=== PATIENT | female | born 1945 | race Caucasian/White ===

== ENCOUNTER 2023-07-12 15:44 | Inpatient (IN) | payer MEDICARE, SELFPAY ==
[2023-07-12] VITALS (17 sets, daily range): BP systolic 75–162; BP diastolic 37–106; BMI 27.4
[2023-07-12] MEDS: ATROPINE 0.1 MG/ML SYRINGE 1 MG IV (14:28)
[2023-07-12] MEDS: DOPamine 400 MG 250 IV (14:32)
--- NOTE | 2023-07-12 14:34 | EDRN ---
Atropine administered 1mg IV at 14:28 for low HR, EXT pacemaker not capturing. Pt had dopamine started at 14:32 at 5 micrograms per kilogram per minute (wt. [address]. Eason in room at 14:34. Dr. Cardoso called to room on arrival of pt.
--- NOTE | 2023-07-12 14:40 | EDRN ---
Ext pacemaker originally got capture w/ rate of 60 at MA 120. MA has been turned up to 130. Dr. Cardoso in room at this time speaking w/ spouse.
[2023-07-12] MEDS: ZOFRAN 4 MG IV (14:44)
[2023-07-12 14:46] LABS: % Basophils 0.4 % (0-2); % Eosinophils 0.2 % (0-6); % Immature Granulocytes 0.9 % (0-0.5); % Lymphocytes 12.1 % (20.5-51.1); % Monocytes 6.6 % (1.7-9.3); % Neutrophils 79.8 % (42.2-75.2); Absolute Basophils 0.1 10^3/uL (0-0.2); Absolute Immature Granulocytes 0.1 10^3/uL (0-0.05); Absolute Lymphocytes 1.9 10^3/uL (1.2-3.4); Absolute Monocytes 1.1 10^3/uL (0.1-0.6); Absolute Neutrophils 12.8 10^3/uL (1.4-6.5); Hematocrit 47.5 % (37.0-47.0); Hemoglobin 15.8 g/dL (12.0-16.0); Mean Corp Hgb Conc. 33.3 g/dL (33.0-37.0); Mean Corpuscular Volume 102.2 fL (81.0-99.0); Mean Platelet Volume 10.8 fL (7.4-10.4); Nucleated Red Blood Cells % 0 %; Platelet Count 112 10^3/uL (130-400); Red Blood Cell Count 4.65 10^6/uL (4.20-5.40); Red Cell Dist. Width 15.8 % (11.5-14.5)
--- NOTE | 2023-07-12 14:48 | ED.GENMED ---
History of Present Illness
General
Chief Complaint: Heart Rate Problem
Source: patient, spouse and ambulance crew
Exam Limitations: altered mental status
Time Seen by Provider: 07/12/23 14:25
Nursing documentation reviewed up to this point in time: agreed with
Travel History
Have you had any contact with someone who has COVID-19?: No
Do you have any symptoms of coronavirus? Fever > 100 degrees, chills, cough, shortness of breath, sore throat, loss of taste or smell, muscle aches, or headache?: No
History of Present Illness
History of Present Illness:
Patient presents to ED from home secondary to multiple syncopal episodes noted by paramedics with extreme bradycardia, as low as 20s. Rhythm strip at the scene revealed slow atrial fibrillation, and patient was given atropine with mild improvement
heart rate. Subsequently, patient was externally paced, and route to the hospital. Initial 911 phone call was secondary to sudden onset of dizziness, confusion, and nausea, witnessed by spouse. Upon arrival, patient is somnolent, but easily
arousable to loud voice, and responding to simple commands. Patient denies chest pain or shortness of breath. However, patient does report nausea sensation and dizziness. Denies recent illness.
Past History
Past History
ED Past Medical History: Arrthythmia, CAD, CHF, HTN and Other (Psoriasis)
ED Past Surgical History: Cardiac (Aortic valve replacement, CABG) and Orthopedic (Knee replacement)
Social History
Tobacco: Non-smoker
Alcohol: None
Drug: None
Personal:
Living: with family
Family History
Family History: Negative Early CAD
Review of Systems
Review of Systems
Allergies reviewed?: Yes
Unable to obtain full review of systems at this time due to: due to acuity
All Other Systems: Not applicable
Phy Exam
Physical Exam
Physical Exam:
Physical Exam
General: moderate distress, acutely ill. afebrile. pale appearing. somnolent but arousable to loud voice.
Head: nc/at. eomi
Neck: supple. no meningeal signs.
Heart: irregularly irregular. no murmur. equal radial pulses.
Lungs: no acute respiratory distress. clear bilaterally
Abdomen: normal bowel sounds. not tender.
Neuro: somnolent but arousable to loud voice. answering questions appropriately. No focal neurological deficits
Skin: no rash
Psychiatric: well kept.
Extremities: no edema. no calf tenderness.
Course
Orders/Labs/Results
Orders:
Orders
07/12/23 14:26
Atropine Sulfate [Atropine 0.1 mg/ml Syringe] 1 mg .ROUTE .STK-MED ONE
DOPamine 400 MG/D5W 250 ML [DOPamine 400 MG] 400 mg in 250 ml .ROUTE .STK-MED
07/12/23 14:33
Complete Blood Count/With Diff Urgent
Comprehensive Metabolic Panel Urgent
Magnesium Urgent
Comment: ADD ON
Prothrombin Time Urgent
Troponin I Urgent
07/12/23 14:42
Ondansetron Injectable [Zofran] 4 mg .ROUTE .STK-MED ONE
07/12/23 14:47
Midazolam HCl [Versed] 1 mg IV NOW STA
Ondansetron Injectable [Zofran] 4 mg IV NOW STA
07/12/23 14:48
Add On- LAB Urgent
Tests Added?: magnesium
Midazolam HCl [Versed] 2 mg .ROUTE .STK-MED ONE
07/12/23 14:53
Atropine Sulfate [Atropine 0.1 mg/ml Syringe] 1 mg IV NOW STA
07/12/23 15:00
DOPamine 400 MG/D5W 250 ML [DOPamine 400 MG] 400 mg in 250 ml IV PER PROTOCOL
Initial dose in mcg/kg/min, then titrate:: 5
Titrate to keep:: Heart Rate
Keep Heart Rate (bpm) greater than:: 60
Titrate by mcg/kg/min:: 1-2 mcg/kg/min
Frequency of titrations (minutes):: 15
Maximum dose in ICU in mcg/kg/min:: 20
Maximum dose in IMU in mcg/kg/min:: 10
Begin to taper infusion when:: Remained at goal for 4hrs
Taper by mcg/kg/min:: 1-2 mcg/kg/min
Frequency of taper (minutes) if patient maintains goal:: 30
Taper to off?: Yes
If infusion off & no longer maintaining goal:: Contact Provider
07/12/23 15:08
Admit/Transfer Patient As Directed
Co-Sign Provider:
Level of Care: Inpatient admission
Assign to:: IVU
Physician / Group: Alanis rGossman
Diagnosis: syncope and bradycardia
Reason for Hospitalization: syncope and bradycardia
Expected length of stay greater than two midnights?: Yes
ELOS- Estimated Length of Stay in days: 3
I certify the patient meets the requirements for IP care: Yes
07/12/23 15:10
Code Status As Directed
Resuscitation Status: Full Code
Heparin 1000 Units/500 ml [Heparin] 1,000 units in 500 ml .ROUTE .STK-MED
Heparin Sodium,Porcine/Ns/Pf [Heparin 2000 Units/1000 ml] 2,000 unit in 1,000 ml .ROUTE .STK-MED
Lidocaine HCl/Pf [Xylocaine-Mpf 1% Vial] 100 mg .ROUTE .STK-MED ONE
07/12/23 15:15
Add On- LAB Urgent
Tests Added?: magnesium
07/12/23 15:17
Heparin 1000 Units/500 ml [Heparin] 1,000 units in 500 ml .ROUTE .STK-MED
07/12/23 15:36
Venous Sheath As Directed
Comment: Right IJ
07/12/23 15:38
Temporary Pacemaker-External As Directed
Rate: 60
MA: 10
Demand: No
07/12/23 15:45
0.9% Sodium Chloride 1000 ml [Nss] 1,000 ml IV 30 mls/hr
07/12/23 16:23
0.9% Sodium Chloride 1000 ml [Nss] 1,000 ml IV 80 mls/hr
Acetaminophen [Tylenol] 650 mg PO Q4HPRN PRN
07/12/23 16:23
CARDIOLOGY CONSULT Routine
Consulting Provider: Nic Reyez
Was physician already notified: Yes
Activity As Directed
Activity Level: As Tolerated
Intake/ Output As Directed
Frequency: Per unit guidelines
Nursing to Place Non Medication Order As Directed
Physician Order: dopamine continued from ER medications but not to be continued post PPM placement - F/U
cardiology recs
Above order entered?: Yes
Pneumatic Compression Sleeves As Directed
Type: Knee high
Vital Signs As Directed
Frequency: Per unit guidelines
Weight As Directed
Frequency: Daily
DX Deep Vein Thrombosis Video Routine
07/13/23 Breakfast
NPO
Allow oral meds: Yes
Allow clear liquids: No
Basic Metabolic Panel IN AM
Complete Blood Count/With Diff IN AM
Magnesium IN AM
07/13/23 08:00
Cholecalciferol (Vitamin D3) [VITAMIN D3 (cholecalciferol)] 50 mcg PO DAILY
Cyanocobalamin [Vitamin B-12] 1,000 mcg PO DAILY
Escitalopram Oxalate [Lexapro] 20 mg PO DAILY
Furosemide [Lasix] 40 mg PO BID@0800,1600
Abnormal Lab Results
07/12/23
14:33
WBC 16.0 H 10^3/uL
(4.8-10.8)
Hct 47.5 H %
(37.0-47.0)
MCV 102.2 H fL
(81.0-99.0)
MCH 34.0 H pg
(27.0-31.0)
RDW 15.8 H %
(11.5-14.5)
Plt Count 112 L 10^3/uL
(130-400)
MPV 10.8 H fL
(7.4-10.4)
Abs Immat Gran (auto) 0.1 H 10^3/uL
(0-0.05)
Absolute Neuts (auto) 12.8 H 10^3/uL
(1.4-6.5)
Absolute Monos (auto) 1.1 H 10^3/uL
(0.1-0.6)
Immature Gran % 0.9 H %
(0-0.5)
Neutrophils % 79.8 H %
(42.2-75.2)
Lymphocytes % 12.1 L %
(20.5-51.1)
BUN 35 H mg/dl
(7-17)
Creatinine 1.5 H mg/dL
(0.6-1.0)
Glucose 208 H mg/dl
(70-99)
Magnesium 2.6 H mg/dl
(1.6-2.3)
Total Bilirubin 1.6 H mg/dl
(0.2-1.3)
AST 234 H U/L
(14-36)
ALT 163 H U/L
(0-35)
Alkaline Phosphatase 176 H U/L
(38-126)
07/12/23 14:33
07/12/23 14:33
Vital Signs
Initial and Last Documented VS:
Initial Vital Signs
Pulse Resp BP Pulse Ox
46 28 121/102 100
07/12/23 14:29 07/12/23 14:29 07/12/23 14:29 07/12/23 14:29
Last Documented Vital Signs
Pulse Resp BP Pulse Ox
60 26 162/95 96
07/12/23 14:45 07/12/23 14:45 07/12/23 14:45 07/12/23 14:45
MDM/Problems Addressed
MDM/Problems Addressed:
History and exam concerning for severe bradycardia, triggering multiple single episodes prehospital, as well as in ED. Patient started on dopamine infusion and externally paced.
Patient evaluated in ED by Dr. Eason, Belt Weaver attending. Will proceed to photo lab specialist
Discussed with patient's spouse at bedside, regarding patient's condition.
Critical care statement: A total of 40 minutes of critical care time was provided for this patient. This includes management of unstable vital signs, evaluation of the patient at bedside, reviewing the patient's pertinent medical records, discussion
with consultants, review of old EKGs and review of pertinent medical records. This time with separate from time utilized to perform the aforementioned documented procedures
*Critical Care Note
Total Time (30-74mins, 75-104mins- exclusive of procedures): 40 min
ED Attending Note
-
Portions of this chart may have been created with voice recognition software.� Occasional wrong word or��sound alike� substitutions may have occurred due to the inherent limitations of voice recognition software.
Discharge Plan
Departure
Patient Disposition: EMS INSTRUCTOR
Date of Disposition: 07/12/23
Time of Disposition: 15:11
Presentation/result/management discussed w/ accepting MD/DO: Hospitalist
Discharge Problem:
Syncope, Atrial fibrillation with slow ventricular response
Interventions
Interventions:
*Nursing Disposition Last Done: 07/12/23 15:10
[2023-07-12] MEDS: VERSED 1 MG IV (14:50)
[2023-07-12 14:54] LABS: ALT (SGPT) 163 U/L (0-35); AST (SGOT) 234 U/L (14-36); Albumin 4.4 g/dl (3.5-5.0); Alkaline Phosphatase 176 U/L (38-126); Blood Urea Nitrogen 35 mg/dl (7-17); Calcium 9.6 mg/dl (8.4-10.2); Carbon Dioxide 23 mmol/L (22-30); Chloride 104 mmol/L (98-107); Glucose 208 mg/dl (70-99); Potassium 4.6 mmol/L (3.5-5.1); Sodium 140 mmol/L (135-145); Total Bilirubin 1.6 mg/dl (0.2-1.3); Total Protein 7.1 g/dl (6.3-8.2); eGFR 35.67
--- NOTE | 2023-07-12 15:01 | EDRN ---
Report given to Marino NAVAS at this time in semiconductor lab technician
--- NOTE | 2023-07-12 15:03 | HPS.HSE ---
Addendum entered and electronically signed by Alanis Grossman MD 07/12/23 16:01:
elevated liver enzymes
-patient without abdominal pain, likely related to shock liver from hypotension
-however given leukocytosis and presentation will obtain US to ensure no e/o infection/no ductal dilation
-trend liver enzymes
Original Note:
Family Physician
-
Family Physician: Dylan Hurst
Chief Complaint
-
dizziness, syncope
History of Present Illness
Ms. Aliyah Land is a 77 yo woman with hx afib on Eliquis, CAD s/p CABG, aortic valve replacement, CHF, HTN, psoriasis, recent admission vitamin B12 deficiency resulting in numbness/tingling presents this morning with confusion and dizziness. EMS was
called and patient found to pass out multiple times with HR dipping to 20's. Atropine given en route and external pacing started. Upon arrival to the ER patient started on a dopamine gtt. Plan is for emergency oil laboratory analyst for temporary pacing.
Patient is on amiodarone and metoprolol 50mg PO QD at home.
Patient is currently sedated s/p versed in the ER. She is able to open her eyes to voice then quickly drifts back to sleep.
Medical History
Past Medical History
Past Medical History: Reports Other (atrial fibrillation on Eliquis, CAD status post CABG, aortic valve replacement, CHF, hypertension, psoriasis)
Past Surgical History: Reports None
Social History
Tobacco: Former Smoker
Alcohol: Daily
Drug: None
Family History
Family History: Not pertinent
Allergies / Home Medications
Allergies reflects when Allergies were last updated in [facility].
Home Medications with original date entered in [facility]
Allergy/Medication List:
Allergies
Allergy/AdvReac Type Severity Reaction Status Date / Time
No Known Allergies Allergy Verified 07/12/23 14:24
Home Medications
apixaban 5 mg tablet (Eliquis) 5 mg PO BID Blood Clot Prevention/Tx 02/02/23
atorvastatin 80 mg tablet 80 mg PO HS High Cholesterol 02/02/23
metoprolol succinate 50 mg tablet,extended release 24 hr 50 mg PO DAILY Blood Pressure 02/02/23
valsartan 80 mg tablet 80 mg PO DAILY Blood Pressure 02/02/23
amiodarone 200 mg tablet 200 mg PO DAILY Arrhythmia 04/01/23
empagliflozin 10 mg tablet (Jardiance) 10 mg PO DAILY Diabetes 04/01/23
escitalopram oxalate 20 mg tablet 20 mg PO DAILY Mental Health 04/01/23
furosemide 40 mg tablet (Lasix) 40 mg PO BID Fluid Retention/Swelling 04/01/23
calcium carbonate 1,000 mg-vitamin D3 20 mcg (800 unit) tablet 1 tab PO DAILY Supplement 05/21/23
cholecalciferol (vitamin D3) 50 mcg (2,000 unit) capsule 50 mcg PO DAILY Supplement 06/11/23
cyanocobalamin (vitamin B-12) 1,000 mcg tablet 1,000 mcg PO DAILY #0 tabs 06/13/23
*med rec to be confirmed in oil laboratory analyst
Review of Systems
-
History Source: Patient
A 12 point ROS was completed and negative except as noted: Yes
Physical Exam
Vital Signs
Vital Signs
Pulse Resp BP Pulse Ox
60 26 162/95 96
07/12/23 14:45 07/12/23 14:45 07/12/23 14:45 07/12/23 14:45
Physical Exam
General: Other (temporary pacing; patient sedated but opens eyes to voice )
HEENT: PERRLA
Respiratory: Clear; No Wheezes
Cardiac: S1/S2
GI: Soft and Non Tender
Musculoskeletal: No Edema
Skin: Warm and Dry; No Rash
Neuro: Sedated
Psych: Calm
Laboratory Results
-
07/12/23 14:33
07/12/23 14:33
Laboratory Results
Total Bilirubin 1.6 mg/dl (0.2-1.3) H 07/12/23 14:33
AST 234 U/L (14-36) H 07/12/23 14:33
ALT 163 U/L (0-35) H 07/12/23 14:33
Alkaline Phosphatase 176 U/L (38-126) H 07/12/23 14:33
Data Reviewed
-
Diagnostic Radiology: Report Reviewed by me
Lab Data: Labs Reviewed by me
Impression/Plan
-
Ms. Aliyah Land is a 77 yo woman with hx afib on Eliquis, CAD s/p CABG, aortic valve replacement, CHF, HTN, psoriasis, recent admission vitamin B12 deficiency resulting in numbness/tingling presents this morning with confusion and dizziness. EMS was
called and patient found to pass out multiple times with HR dipping to 20's. Atropine given en route and external pacing started. Upon arrival to the ER patient started on a dopamine gtt. Plan is for emergency oil laboratory analyst for temporary pacing.
Severe Symptomatic Bradycardia with syncope
History of Atrial Fibrillation
-s/p atropine; cutaneous pacing and dopamine by EMS/ER
-patient being taken emergently to oil laboratory analyst for temporary pacemaker
-hold BOTTLING MACHINE OPERATOR metoprolol, amiodarone, Eliquis
-NPO
-F/U further cardiology recs
-admit to IVU post cath
Acute Kidney Injury
-in setting of poor perfusion from severe bradycardia
-PPM as above
-hold valsartan
-IVF
CAD s/p CABG
Hx Aortic valve replacement
Heart failure preserved EF
-hold BOTTLING MACHINE OPERATOR Jardiance
-resume BOTTLING MACHINE OPERATOR lasix tomorrow
Hyperlipidemia
-BOTTLING MACHINE OPERATOR Atorvastatin
Anxiety/Depression
-continue BOTTLING MACHINE OPERATOR Lexapro
Essential Hypertension
-hold BOTTLING MACHINE OPERATOR Valsartan
DVT PPx SCD
FULL CODE
[2023-07-12 15:06] LABS: Troponin I 0.033 ng/ml
[2023-07-12 15:09] LABS: Magnesium 2.6 mg/dl (1.6-2.3)
[2023-07-12 15:11] LABS: INR 1.15; PT 14.5 Sec (11.4-14.6)
--- NOTE | 2023-07-12 15:23 | CON.CAR ---
Addendum entered and electronically signed by Nic Eason MD 07/12/23 16:34:
Attending addendum: Called to see patient emergently in the emergency department for recurring syncopal episodes in ED and en-route to the hospital. She had a known prior RBBB and is chronically maintained on amiodarone 200mg daily and metoprolol.
HR in the ED falling to 20's with loss of consciousness. She was started on transcutaneous pacing. No family available for consent. EMS reported 911 was called for evaluation of dizziness, nausea, and vomiting. The patient has been scheduled
for pulmonary vein isolation early in on 06/07/2023. She was started on amiodarone and the PVI was delayed. She was admitted to [facility] on 06/11/2023 with abrupt onset of left arm and leg numbness that spontaneously resolved. She was seen
in consultation by neurology. Workup was rather unrevealing. She was discharged and reported dizziness and near syncopal symptoms while participating in physical therapy. This morning she was more confused and dizzy. Her was concerned
she may be having a stroke and 911 was called
GEN: Patient is intermittently alert and interactive. Occasional transcutaneous pacing. When alert she appears appropriate.
HEENT: NC/AT, sclera are anicteric
LUNGS: Clear in the anterolateral lung puga bilaterally
CV: Irregularly irregular rhythm with occasional transcutaneous demand pacing. Normal S1/S2.
ABD : Soft, NT, ND
EXT: No CCE
LABS: BUN/Cr: 35/1.5, AST/ALT: 234/163, T. bili: 1.6, WBC: 16.0 H/H: 15.8/47.5, Plts: 112, INR: 1.15, Trop: 0.033 ng/dl
IMPRESSION:
-Symptomatic bradycardia with recurring syncopal episodes: on amiodarone and metoprolol
Successful transcutaneous pacemaker placed as emergency. Family members were not readily available
-Atrial fibrillation: on amiodarone and metoprolol
-Elevated LFT's: Component of hypotension and shock liver is possible.
-Hx of CADz s/p CABGx3 [id number], and SVG-OM at [facility] 2013
-Midrange LVEF: EF: 45-50%
-Hx of bioprosthetic AVR
-Renal insufficiency
RECOMMENDATIONS:
-Transcutaneous pacemaker wire was placed via right IJ using ultrasound guidance
-EP will evaluate
-May need abdominal ultrasound
-Hold atorvastatin
-Hold Apixaban for now until plan is made re: timing of pacemaker
-Hold amiodarone and metoprolol
-Trend trop
Original Note:
Consultation
Consultation Request
Date/Time Consultation Requested: 07/12/23
Reason for Consultation: Heart block
Medical History
-
Chief Complaint: Syncope
History of Present Illness:
77 yo WF with hx afib on Eliquis, CAD s/p CABG x3, AVR 2013, RBBB, CHF, HTN, psoriasis, carotid stenosis, recent admission for vitamin B12 deficiency resulting in numbness/tingling who presents this morning with confusion and dizziness.� EMS was
called and patient found to pass out multiple times with HR dipping to 20's.� Atropine given en route and external pacing started.� Upon arrival to the ER patient started on a dopamine gtt.� Plan is for emergency computer lab aide for temporary pacing.�
Past Medical History
Past Medical History: Arrhythmias (Paroxysmal Afib s/p DCCV 02/05/23 and KG DCCV 04/08/23, RBBB, LAFB), CAD (CABGx3, NGOH-IFJ-F5-LAD, SVG-OM at [facility] 2013), CHF (EF 45-50%), HTN, Hypercholesterolemia, Valvular Disease (AVR
bioprosthetic 2013) and Other (Psoriasis, osteoarthritis with chronic back pain)
Past Surgical History: Orthopedic (L knee arthroscopy)
Social History
Tobacco: Former Smoker (quit 23 yrs ago)
Alcohol: Occasional
Family History
Family History: CAD and Cancer
Allergies / Home Medications
Allergy/AdvReac Type Severity Reaction Status Date / Time
No Known Allergies Allergy Verified 07/12/23 14:24
Medication Instructions Recorded Confirmed Type
apixaban 5 mg tablet (Eliquis) 5 mg PO BID Blood Clot 02/02/23 06/11/23 History
Prevention/Tx
atorvastatin 80 mg tablet 80 mg PO HS High Cholesterol 02/02/23 06/11/23 History
metoprolol succinate 50 mg 50 mg PO DAILY Blood Pressure 02/02/23 06/11/23 History
tablet,extended release 24 hr
valsartan 80 mg tablet 80 mg PO DAILY Blood Pressure 02/02/23 06/11/23 History
amiodarone 200 mg tablet 200 mg PO DAILY Arrhythmia 04/01/23 06/11/23 History
empagliflozin 10 mg tablet 10 mg PO DAILY Diabetes 04/01/23 06/11/23 History
(Jardiance)
escitalopram oxalate 20 mg tablet 20 mg PO DAILY Mental Health 04/01/23 06/11/23 History
furosemide 40 mg tablet (Lasix) 40 mg PO BID Fluid 04/01/23 06/11/23 History
Retention/Swelling
calcium carbonate 1,000 mg-vitamin 1 tab PO DAILY Supplement 05/21/23 06/11/23 History
D3 20 mcg (800 unit) tablet
cholecalciferol (vitamin D3) 50 50 mcg PO DAILY Supplement 06/11/23 06/11/23 History
mcg (2,000 unit) capsule
cyanocobalamin (vitamin B-12) 1,000 mcg PO DAILY #0 tabs 06/13/23 Rx
1,000 mcg tablet
Review of Systems
-
Constitutional: Other (brought to computer lab aide for emergent IJ temp wire being transcutaneous paced)
Physical Exam
Vital Signs
Pulse Resp BP Pulse Ox
60 26 162/95 96
07/12/23 14:45 07/12/23 14:45 07/12/23 14:45 07/12/23 14:45
Lab Results
07/12/23 14:33
07/12/23 14:33
Troponin I 0.033 ng/ml 07/12/23 14:33
Physical Exam
General: Pain (discomfort from trancutaneous pacing, deferred exam d/t being prepped and draped for emergent procedure)
Impression / Plan
-
PCP: Dylan Hurst MD
Primary Cardiology: Ni Donis MD
77 yo WF with hx afib on Eliquis, CAD s/p CABG x3, AVR 2014, RBBB, CHF, HTN, psoriasis, recent admission vitamin B12 deficiency resulting in numbness/tingling presents this morning with confusion and dizziness.� EMS was called and patient found to
pass out multiple times with HR dipping to 20's.� Atropine given en route and external pacing started.� Upon arrival to the ER patient started on a dopamine gtt.� Plan is for emergency computer lab aide for temporary pacing.�
04/08/23 KG - LVEF 45-50%, mild enlarged RV, biatrial enlargement, moderate MR, well seated AVR with mild AR, Moderate TR
B/L CUS:
RIGHT: Calcified plaque is identified in the proximal internal carotid artery. Carotid velocity measurements are consistent with less than 50% stenosis. Vertebral artery flow is antegrade.
LEFT: Calcified plaque is identified in the carotid bulb and proximal internal carotid artery. Carotid velocity measurements are consistent with 50-69% stenosis. Vertebral artery flow is antegrade.
Severe Symptomatic Bradycardia with syncope
History of Atrial Fibrillation
-s/p atropine; cutaneous pacing and dopamine by EMS/ER
-emergently to computer lab aide for temporary pacemaker
-continue to hold metoprolol, amiodarone, Eliquis
-NPO
-Admit CVICU post temp wire, plan per EP cards timing of PPM
Acute Kidney Injury
-in setting of poor perfusion from severe bradycardia
-PPM as above
-hold valsartan
-IVF
CAD s/p CABG
Hx Aortic valve replacement
Heart failure preserved EF
-hold PLUGMAN Jardiance
-resume PLUGMAN lasix tomorrow
Hyperlipidemia
-PLUGMAN Atorvastatin
Anxiety/Depression
-continue PLUGMAN Lexapro
Essential Hypertension
-hold PLUGMAN Valsartan
Data Reviewed
-
EKG: Discussed with Physician
Labs: Labs Reviewed by me
--- NOTE | 2023-07-12 16:35 | ITS.CL.CATH ---
Cutter V Groove - Catheterization
Cardiac Catheterization
Procedure Report:
TEMPORARY TRANSVENOUS PACING WIRE
Date of Procedure: July 12, 2023
Referring: [facility] Emergency Department
PROCEDURES:
1. Temporary transvenous pacemaker wire was placed via right internal jugular access.
INDICATION: Symptomatic AV block
ACCESS: Right internal jugular artery using ultrasound guidance
PROCEDURAL DETAILS: Consent was obtained on an emergency basis as no family was available. Patient arrived to the catheterization laboratory and ultrasound guidance was utilized to obtain access in the right internal jugular vein and an 8 Lebanese
sheath was placed. A 6 Lebanese transcutaneous pacemaker wire was advanced through the IJ sheath to the right ventricle where excellent pacing thresholds were obtained.
RADIATION SUMMARY: Fluoro Time (min): 0.4, Dose (mGy): 3.7, DAP (Gy.cm2) : 0.5
CONCLUSIONS
1. Successful placement of temporary transvenous pacemaker via right internal jugular access
Copy to: Dr. Jessica Donis
[2023-07-12] MEDS: NSS 1000 IV (16:48)
--- NOTE | 2023-07-12 16:49 | PTCARENOTE ---
arrived in ICU via track repair laborer stretcher, assisted into bed. temp pacer VR 60, V lead only, MA 10, full demand. RIJ cordis site large dressing overtop gauze. extremely restless, picking at dressing, attempting to get OOB. redirectable and oriented
but forgetful and restless. reports was agitated today earlier.
--- NOTE | 2023-07-12 18:30 | PTCARENOTE ---
continued as restless, 1:1 maintained in room for safety and pacer security. moves side to side, attempted to climb oob several times. smiles, interacts appropriately at times. Dr. Recinos updated about need for possible restraints/general
observation safety. Dr. Avina bedside, spoke with , discussing pacer procedure and consent, questions answered. report to garage laborer staff. taken to garage laborer via stretcher with pacer continuing, on monitor, with garage laborer staff and
anesthesia. pacer settings were VR 60, VVI setting, MA 10. was 100% paced at time of transfer.
--- NOTE | 2023-07-12 18:52 | W.PN.UPDATE ---
Update Note
Progress Note Update
Patient is a 77 yo WF with hx afib on Eliquis, CAD s/p CABG x3, AVR 2014, RBBB, CHF, HTN, psoriasis, carotid stenosis, recent admission for vitamin B12 deficiency resulting in numbness/tingling who presents this morning with confusion and
dizziness.� EMS was called and patient found to pass out multiple times with HR dipping to 20's.� Atropine given en route and external pacing started.� Upon arrival to the ER patient started on a dopamine gtt.� Patient underwent successful TVP
placement via RIJ with clinical improvement/stability. Additionally, patient noted to have abnormal LFTs/renal function likely related to the hypotension. She and her noted diarrhea 2-3 days ago but now improved. No reported fevers.
Currently, patient is AOx3 however is very restless and expresses some confusion. With this in mind, there is serious concern for TVP lead dislodgement. Therefore, I discussed at length with patient and her regarding implantation of a
permanent pacemaker. Due to patient's symptomatic bradycardia with syncope and unstable rhythm requiring inotropic support and TVP, I believe patient would benefit from urgent implantation of a dual chamber pacemaker. We discussed pacemaker
indications and device implant in detail. For implant there is an approximate 1:1000 risk of W[place]/stroke/ and a 1% risk of pneumothorax/tamponade/infection/bleeding. We also discussed post procedure implant restrictions including positions to
avoid with implant arm for first six weeks after implant as well as driving restrictions. I took time to answer all questions. Patient and her verbalized understanding of the procedure, benefits, and risks and agreed to proceed.
--- NOTE | 2023-07-12 21:13 | ITS.CL.PACE ---
Front Services Agent - Pacemaker Implant
Pacemaker Implant
Procedure Report:
Primary Children'S Entertainer: Jessica Donis MD
Procedure Date: 07/12/2023
Name of procedure:
1. Placement of a dual-chamber pacemaker
2. Subclavian venography
3. TVP removal
History:
1. 77-year-old female past medical history significant for atrial fibrillation/atrial flutter on Eliquis, CAD status post CABG x 3, AVR 2013, right bundle branch block, heart failure, hypertension, psoriasis, right carotid stenosis, recent
admission for B12 deficiency with new onset complete heart block, alternating bundle branch block, symptomatic bradycardia, and syncope.
2. Please refer to H&P for complete history.
Indication:
Symptomatic bradycardia, alternating bundle branch block, syncope with bradycardia and complete heart block
Methods:
After informed consent was obtained, the patient was brought to the EP laboratory in a postabsorptive, nonsedated state. Peripheral IV access was established. Prophylactic antibiotics were administered prior to incision. Continuous ECG, blood
pressure, and pulse oximetry were initiated. Cardioversion patch electrodes were placed on the patient's chest and back. A grounding patch was applied to the skin. Sedation was administered by anesthesia.
In order to define the extrathoracic portion of the subclavian vein and exclude significant venous obstruction or anomalous anatomy, subclavian venography was performed prior to the procedure. Using the patient's left peripheral IV, contrast was
injected and images were recorded. The left subclavian vein and SVC were found to be widely patent.
The left chest was prepared and draped in a sterile fashion. A time-out was performed. Local anesthesia was injected in the subcutaneous tissue in the infraclavicular area. An incision was made medial to the deltopectoral groove. The subcutaneous
tissue was dissected the level of the prepectoral fascia. A subcutaneous pocket was created. Under fluoroscopic guidance and with the assistance of the images from the venogram, 2 separate venipunctures were made using micropuncture and modified
Seldinger technique. These were performed in the extrathoracic portion of the subclavian vein. Guidewires were passed and two peel-away sheaths were placed, and used to advance leads into the circulation.
Using fluoroscopic guidance, the leads were positioned. The RV lead was advanced to the RV/outflow tract. Ventricular ectopy was recorded. Images were taken in LAY and YAKUT views to ensure appropriate lead placement. The lead tip was subsequently
positioned on the apical septum. Adequate sensing and pacing parameters were found, and no diaphragmatic stimulation was seen with high-output pacing.
Next, the right atrial lead was positioned in the right atrial appendage. Adequate sensing and pacing parameters were found, and no diaphragmatic stimulation was seen with high-output pacing. Both sheaths were split, and the leads were secured to
the fascia with Ethibond ties.
The pocket was flushed with antibiotic solution and hemostasis was assured. Surgiflo was applied. The generator was connected to the leads and placed inside the pocket with antibiotic envelope. The wound was closed with 3 running layers of
absorbable suture, and steri-strips were applied. Dressing applied over steri-strips in standard fashion. Under fluoroscopy, the transvenous pacemaker was removed from the right IJ.
Following the procedure, the patient was taken to the recovery area in stable condition. A chest x-ray to be obtained in the recovery area/patient room.
Lead parameters and device programming:
- RA Lead (Medtronic, [id number], #[id number]): Sensing 1.0 mV, In AFL (no pacing threshold), Imp 460 Ohm
- RV Lead (Medtronic, [id number], #[id number]): Sensing 7.25 mV, Pacing threshold 0.75 V at 0.4 ms, Imp 720 Ohm
- Device: Medtronic, [id number] pacemaker (#[id number]), programmed DDDR 70-130 ppm; mode switch on
Conclusions:
1. Successful placement of a dual-chamber pacemaker
2. Subclavian venography
Recommendations:
1. Return to patient room
2. Portable chest x-ray in recovery area.
3. IV antibiotics while the patient is admitted.
4. OK to resume home medications as indicated
5. If site c/d/i and patient stable after pressure dressing removal 07/13/2023, can resume OAC evening 07/13/2023
5. Pressure dressing to be removed in AM, aquacell to remain until wound check
6. Follow-up will be arranged in the office in 7-10 days post-discharge
Lex Avina DO
Clinical Cardiac Boiler Operator Helper
cc: Jessica Donis MD
[2023-07-12 22:52] LABS: Troponin I 0.113 ng/ml
--- NOTE | 2023-07-12 23:54 | PTCARENOTE ---
Pt admitted to IVU at approximately 2245 post pacemaker placement. at bedside. HR V-paced 70s. Pt oriented to person and place, not time. Pt having confused conversation (baseline since arrival to ED). Bed alarm placed, medsitter in room. Pt
appears fatigued post procedure. Educated pt/pt's on activity restrictions, reason for immobilizer, and plan of care. Pt/pt's have no further questions at this time. Pt denies any pain, SOB, or lightheadedness/dizziness at this time.
Informed to notify RN if any changes, call mistry within reach.
Pt belongings with pt.
[2023-07-13] VITALS (8 sets, daily range): BP systolic 122–132; BP diastolic 39–50; PULSE 71–74; O2SAT 97; BMI 27.4
[2023-07-13] MEDS: ANCEF 5 IV ×2 (02:18→10:03)
[2023-07-13 02:43] LABS: % Basophils 0.3 % (0-2); % Immature Granulocytes 0.7 % (0-0.5); % Lymphocytes 7.2 % (20.5-51.1); % Monocytes 3.1 % (1.7-9.3); % Neutrophils 88.7 % (42.2-75.2); Absolute Immature Granulocytes 0.1 10^3/uL (0-0.05); Absolute Lymphocytes 0.9 10^3/uL (1.2-3.4); Absolute Monocytes 0.4 10^3/uL (0.1-0.6); Absolute Neutrophils 10.6 10^3/uL (1.4-6.5); Hematocrit 39.4 % (37.0-47.0); Mean Corp Hgb Conc. 35.5 g/dL (33.0-37.0); Mean Corpuscular Volume 95.6 fL (81.0-99.0); Mean Platelet Volume 10.4 fL (7.4-10.4); Nucleated Red Blood Cells % 0 %; Platelet Count 96 10^3/uL (130-400); Red Blood Cell Count 4.12 10^6/uL (4.20-5.40); Red Cell Dist. Width 15.6 % (11.5-14.5); White Blood Cell Count 11.9 10^3/uL (4.8-10.8)
[2023-07-13 03:09] LABS: Troponin I 0.089 ng/ml
[2023-07-13 03:14] LABS: ALT (SGPT) 109 U/L (0-35); AST (SGOT) 121 U/L (14-36); Albumin 3.6 g/dl (3.5-5.0); Alkaline Phosphatase 134 U/L (38-126); Blood Urea Nitrogen 38 mg/dl (7-17); Calcium 9.2 mg/dl (8.4-10.2); Carbon Dioxide 22 mmol/L (22-30); Chloride 105 mmol/L (98-107); Direct Bilirubin 0.4 mg/dl (0.0-0.4); Estimated Creatinine Clearance 48 ml/min; Glucose 115 mg/dl (70-99); Magnesium 2.2 mg/dl (1.6-2.3); Potassium 4.5 mmol/L (3.5-5.1); Sodium 139 mmol/L (135-145); eGFR 51.75
--- NOTE | 2023-07-13 06:21 | W.PN.HOSP.TC ---
Today's Communication/Plan
-
dc planning
Assessment / Plan
Assessment / Plan
Physical Exam
General: Other (temporary pacing; patient sedated but opens eyes to voice )
HEENT: no deformities
Respiratory: No Wheezes
Cardiac: S1/S2. left upper chest pacemaker site, no bleeding noted
GI: Soft and Non Tender
Musculoskeletal: No Edema
Skin: Warm and Dry; No Rash
Neuro: awake, alert, oriented to self and surroundings, follows commands.
Psych: Calm, easy to re-direct
Ms. Aliyah Land is a 77 yo woman with hx afib on Eliquis, CAD s/p CABG, aortic valve replacement, CHF, HTN, psoriasis, recent admission vitamin B12 deficiency resulting in numbness/tingling presents this morning with confusion and dizziness.� EMS was
called and patient found to pass out multiple times with HR dipping to 20's.� Atropine given en route and external pacing started.� Upon arrival to the ER patient started on a dopamine gtt.� Plan is for emergency company laborer for temporary pacing.�
# Symptomatic AV block. Severe Symptomatic Bradycardia with syncope
History of Paroxysmal�Atrial Fibrillation
-s/p atropine; cutaneous pacing and dopamine, temporary pacemaker
- s/p placement of a dual-chamber pacemaker on 07/[address] Avina
- Resume metoprolol, amiodarone, Eliquis
- started oral diet
- Follow-up in cardiology office in 7-10 days post-discharge
# Confusion
suspect toxic metabolic encephalopathy due to bradycardia, but suspect some underlying cognitive impairment.
Hx of ETOH intake daily per patient ( GIN)
Monitor for DT
Start her on Thiamine
Added PRN Lorazepam
Acute Kidney Injury
-in setting of poor perfusion from severe bradycardia
Creatinine is coming down to 1.1 from 1.5
No renal colic, no hematuria
-held valsartan
-IVF
# Transaminitis
AST/ALT are coming down
No abd pain
No nausea
No jaundice
# leukocytosis
reactive
WBC is coming down
Afebrile
# CAD s/p CABG
Hx Aortic valve replacement
Heart failure preserved EF
-hold NEWSPAPER SUBSCRIPTION SOLICITOR Jardiance
-resume NEWSPAPER SUBSCRIPTION SOLICITOR lasix tomorrow
Hyperlipidemia
-NEWSPAPER SUBSCRIPTION SOLICITOR Atorvastatin
Anxiety/Depression
-continue NEWSPAPER SUBSCRIPTION SOLICITOR Lexapro
Essential Hypertension
-hold NEWSPAPER SUBSCRIPTION SOLICITOR Valsartan
DVT PPx SCD
FULL CODE
Total time spent to see the patient, examine the patient on the floor, review data and lab results, discuss treatment plan with patient, and nursing staff around 55 minutes
Anticipated Discharge: Within 24 hours
Subjective/Interval History
-
Date of Service: July 13, 2023
No chest pain
Nos ob
No abd pain
Night team: restless, confused at times
Objective Data
-
Labs:
Laboratory Results
07/13/23
02:36
WBC 11.9 H
Hgb 14.0
Hct 39.4
Plt Count 96 L
Sodium 139
Potassium 4.5
Chloride 105
Carbon Dioxide 22
BUN 38 H
Creatinine 1.1 H
Glucose 115 H
Calcium 9.2
Total Bilirubin 1.0
AST 121 H
ALT 109 H
Alkaline Phosphatase 134 H
Vital Signs:
Vital Signs
Temp Pulse Resp BP Pulse Ox
98.5 F 70 18 123/44 95
07/13/23 02:30 07/13/23 02:45 07/13/23 02:30 07/13/23 02:30 07/13/23 02:30
I&O
07/11/23 07/12/23 07/13/23
06:59 06:59 06:59
Intake Total 685 / 685
Balance 685 / 685
--- NOTE | 2023-07-13 07:57 | PTCARENOTE ---
care link performed and transmitted as ordered.
[2023-07-13] MEDS: VITAMIN D3 (cholecalciferol) 50 MCG PO (08:15)
[2023-07-13] MEDS: VITAMIN B1 100 MG PO ×2 (08:15→19:45)
[2023-07-13] MEDS: VITAMIN B-12 1000 MCG PO (08:15)
[2023-07-13] MEDS: LASIX 40 MG PO ×2 (08:15→16:07)
--- NOTE | 2023-07-13 08:15 | W.PN.CARDCBS ---
Today's Communication / Plan
-
Dramatically improved with permanent pacemaker
MSOF resolving, presumably related to correction of incipient cardiogenic shock from advanced heart block
Restart Eliquis tonight
Resume medications as hemodynamics and lab work permit
Hopefully ready for discharge in 24 to 48 hours
Impression / Plan
-
PCP: Dylan Hurst MD
Primary Cardiology: Ni Donis MD
Impression:
Atrial flutter with complete heart block and slow ventricular escape rhythm
Initial temporary pacing wire, Medtronic dual-chamber pacemaker 07/12/2023
PAF on amiodarone
CABG x 3 2013
AVR 2013
Right bundle branch block
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
Acute hepatic injury
Acute kidney injury
Change in mental status, improved
Psoriasis
Hypertension
Hyperlipidemia
Anxiety/depression
B12 deficiency
04/08/23 KG - LVEF 45-50%, mild enlarged RV, biatrial enlargement, moderate MR, well seated AVR with mild AR, Moderate TR
Plan:
She looks much better now with underlying atrial flutter and a ventricularly paced rhythm
Acute hepatic injury, encephalopathy, acute kidney injury ALT improving. In retrospect, incipient cardiogenic shock likely accounts for all of the findings, now corrected with permanent pacemaker.
Will restart Eliquis today, consider resumption of Jardiance, furosemide, amiodarone, atorvastatin, metoprolol and valsartan based on clinical course.
[facility] performed, good pacemaker function.
Hopefully ready for discharge over the next 24 to 48 hours.
PVI can be rescheduled per EP
Clinical summary: 77 yo WF with hx afib on Eliquis, CAD s/p CABG x3, AVR 2013, RBBB, CHF, HTN, psoriasis. She had been scheduled for PVI in early June by Dr. Avina but this was canceled when she was admitted on June 11 with left-sided
numbness ultimately attributed to B12 deficiency. On 07/12/2023 she developed abrupt change in mental status with multiple episodes of syncope, EMS was called with HR dipping to 20's.� Atropine given en route and external pacing started.� ECG showed
flutter with complete heart block and ventricular escape rhythm in the 20s, upon arrival to the ER patient started on a dopamine gtt.�
Progress Note - Body Shop Mechanic
Subjective
Date of Service: July 13, 2023:
Allergies: None
Outpatient medications amiodarone 200 mg a day, atorvastatin 80 mg a day, Eliquis 5 mg twice daily, Lexapro 20 mg a day, furosemide 40 mg twice daily, Jardiance 10 mg a day, metoprolol ER 50 mg twice daily, valsartan 80 mg a day
Current medications: Vitamin B12, Lexapro 20 a day, furosemide 40 mg twice daily, Ancef, thiamine
PMH/PSH/SH/FH: Reviewed
Review of systems: Mild residual, effusion, some shoulder discomfort, otherwise negative
EKG today atrial flutter, ventricular pacing
Chest x-ray July 12: Status post pacemaker no pneumo, possible mild vascular congestion
White count 11.9, had been 16, hemoglobin 14, platelets 96, BUN and creatinine 38 and 1.1, creatinine had been 1.5, troponin is 0.089, had been 0.113 and 0.033, ALT 109, a AST 121, AST had been 234 ALT had been 163
Objective
Labs:
07/13/23 02:36
07/13/23 02:36
Labs
Hgb 14.0 g/dL (12.0-16.0) 07/13/23 02:36
Hct 39.4 % (37.0-47.0) 07/13/23 02:36
Plt Count 96 10^3/uL (130-400) L 07/13/23 02:36
PT 14.5 Sec (11.4-14.6) 07/12/23 14:33
INR 1.15 07/12/23 14:33
Sodium 139 mmol/L (135-145) 07/13/23 02:36
Potassium 4.5 mmol/L (3.5-5.1) 07/13/23 02:36
BUN 38 mg/dl (7-17) H 07/13/23 02:36
Creatinine 1.1 mg/dL (0.6-1.0) H 07/13/23 02:36
Glucose 115 mg/dl (70-99) H 07/13/23 02:36
Troponins
07/12/23 07/12/23 07/13/23
14:33 22:21 02:36
Troponin I 0.033 0.113 H* D 0.089 H*
07/13/23
08:30
Troponin I Cancelled
Vital Signs and I&O:
Vital Signs
Temp Pulse Resp BP Pulse Ox
36.9 C 70 18 123/44 95
07/13/23 02:30 07/13/23 02:45 07/13/23 02:30 07/13/23 02:30 07/13/23 02:30
Vital Signs
Temp Pulse Resp BP Pulse Ox
36.9 C 70 18 123/44 95
07/13/23 02:30 07/13/23 02:45 07/13/23 02:30 07/13/23 02:30 07/13/23 02:30
Intake & Output
07/11/23 07/12/23 07/13/23 07/14/23
07:59 07:59 07:59 07:59
Intake Total 685 / 685
Balance 685 / 685
Physical Exam
Physical Exam
123/44, pulse 70, respirate 18, afebrile, offers no complaints, says her mentation is markedly improved, nurses report mild residual improvement perhaps, head neck exam unremarkable, lungs are clear, regular rate and rhythm, no murmurs JVD okay,
abdomen benign, pacemaker site looks good, extremities without clubbing cyanosis or edema neuro nonfocal
[2023-07-13] MEDS: TYLENOL 650 MG PO ×2 (08:16→19:46)
[2023-07-13] MEDS: ATIVAN 0.25 MG PO (08:16)
[2023-07-13] MEDS: LEXAPRO 20 MG PO (08:16)
[2023-07-13] MEDS: NSS IV (08:18)
--- NOTE | 2023-07-13 08:21 | PTCARENOTE ---
patient c/o LCW pain at site, Tylenol po given as ordered.
--- NOTE | 2023-07-13 08:56 | PTCARENOTE ---
To U/S via stretcher accompanied by vol. staff.
[2023-07-13] MEDS: FLUSH (NSS) 1 FLUSH IV (10:06)
--- NOTE | 2023-07-13 14:42 | PTCARENOTE ---
patient has been on med sitter when I received her this am, patient is able to ring call mistry appropriately, needs assist x 1 to ambulate to BR. bed and chair alarm will remain on. will D/C med sitter.
--- NOTE | 2023-07-13 15:36 | W.DCSUMMARY ---
Discharge Summary
Discharge Data
Date of Admission: 07/12/23
Date of Discharge: 07/14/23
-
Pending Results: No
Hospital Course
77 years old female presented with symptomatic bradycardia. She was found to have confusion and dizziness. She was diagnosed with encephalopathy, acute kidney injury and elevated liver enzymes. Ambulance personnel reported multiple episodes of
passing out and severe bradycardia down to low heart rate. Atropine was given with external pacing. In the emergency room, she was started on dopamine drip. Patient was taking to cardiac catheterization lab for placement of temporary transvenous
pacemaker via right internal jugular access. Upon further evaluation, temporary venous pacing lead was suspected to be dislodged. Upon further discussion, cardiology placed permanent pacemaker. Patient started to feel better. She had underlying
atrial flutter with ventricularly paced rhythm. She was started back on Eliquis with other home medications. [facility] performed and showed good pacemaker function. Liver function test started to show improvement. Patient did not have
abdominal pain. She did not have chest pain. Patient reported daily alcohol intake. She was given oral thiamine. Creatinine came down and patient did not have hematuria, dysuria or flank pain. Patient remained hemodynamically stable. She was
evaluated by physical therapy and recommended home health. Patient was discharged in a stable condition.
Physical Exam
General: Other (temporary pacing; patient sedated but opens eyes to voice )
HEENT: no deformities
Respiratory:� No Wheezes
Cardiac: S1/S2. left upper chest pacemaker site, no bleeding noted
GI: Soft and Non Tender
Musculoskeletal: No Edema
Skin: Warm and Dry; No Rash
Neuro: awake, alert, oriented to self and surroundings, follows commands.
Psych: Calm, easy to re-direct
Total discharge time spent to see the patient, examine the patient on the floor, review data and lab results, discuss discharge plan with patient,�and nursing staff around 65 minutes
Discharge Plan
-
Patient Disposition: Home with Home Care
Discharge Diagnosis/Procedures: Symptomatic atrioventricular block/symptomatic bradycardia with syncopal episodes status post placement of permanent pacemaker on 07/12/[address] Avina.
Acute kidney injury, resolved.
Elevated liver enzymes, coming down. Avoid daily alcohol intake.
Diet: As tolerated, Low Fat and Low Sodium
Referrals:
Dylan Hurst MD [Family Provider] - in one to two weeks
Lex Avina, [Active] - in one week
Prescriptions:
Continued
atorvastatin 80 mg Tablet
80 mg PO HS
Rx Instructions:
stated that they get thru express script
metoprolol succinate 50 mg Tablet Extended Release 24 Hr
50 mg PO BID
valsartan 80 mg Tablet
80 mg PO DAILY
Eliquis 5 mg Tablet
5 mg PO BID
escitalopram oxalate 20 mg Tablet
20 mg PO DAILY
Rx Instructions:
stated that they get thru [facility] scripts
furosemide [Lasix] 40 mg tablet
20 mg PO DAILY
Patient Comments:
decrease dose on 07.04.23
amiodarone 200 mg Tablet
200 mg PO DAILY
Jardiance 10 mg Tablet
10 mg PO DAILY
Discharge Orders:
Discharge Patient (As Directed); Ordered 07/14/23
Ordered By: Adebayo Link
[2023-07-13] MEDS: ELIQUIS 5 MG PO (19:45)
--- NOTE | 2023-07-14 00:54 | PTCARENOTE ---
Pt. remains V-paced on the monitor, VSS. Left CW Aquacel CDI, strong radial pulse. Sat OOB in chair beginning of shift, ringing for help appropriately to use BR; gait unsteady. Pt. oriented but forgetful. Bed alarm on. Currently sleeping.
[2023-07-14 03:23] VITALS: BP 138/57
[2023-07-14 03:33] VITALS: BMI 27.2
[2023-07-14 07:59] VITALS: BP 160/59
[2023-07-14] MEDS: VITAMIN B-12 1000 MCG PO (08:11)
[2023-07-14] MEDS: PACERONE 200 MG PO (08:11)
[2023-07-14] MEDS: ELIQUIS 5 MG PO (08:11)
[2023-07-14] MEDS: VITAMIN D3 (cholecalciferol) 50 MCG PO (08:11)
[2023-07-14] MEDS: LASIX 40 MG PO (08:11)
[2023-07-14] MEDS: VITAMIN B1 100 MG PO (08:12)
[2023-07-14] MEDS: LEXAPRO 20 MG PO (08:12)
[2023-07-14] MEDS: TYLENOL 650 MG PO (08:13)
--- NOTE | 2023-07-14 08:15 | PTCARENOTE ---
patient c/o LCW pacer site discomfort, Tylenol po given as ordered.
--- NOTE | 2023-07-14 10:30 | W.PN.CARDCBS ---
Today's Communication / Plan
-
Check CMP
Okay for discharge from cardiac standpoint
We will arrange for outpatient follow-up
Impression / Plan
-
PCP: Dylan Hurst MD
Primary Cardiology: Ni Donis MD
Impression:
Atrial flutter with complete heart block and slow ventricular escape rhythm
Initial temporary pacing wire, Medtronic dual-chamber pacemaker 07/12/2023
PAF on amiodarone
CABG x 3 2013
AVR 2013
Right bundle branch block
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
Acute hepatic injury
Acute kidney injury
Change in mental status, improved
Psoriasis
Hypertension
Hyperlipidemia
Anxiety/depression
B12 deficiency
04/08/23 KG - LVEF 45-50%, mild enlarged RV, biatrial enlargement, moderate MR, well seated AVR with mild AR, Moderate TR
Plan:
She looks quite well.
Will repeat CMP to ascertain that liver function tests are improving and also SUSIE is resolving.
As outpatient we can determine whether or not to perform a stress test for detectable troponin. I suspect this was a non-MD troponin related to hemodynamic stress of advanced heart block and poor cardiac output.
She will need a follow-up appointment with Dr. Stoll. We will schedule a wound check. She will eventually need a PVI.
From my standpoint, provided her CMP looks good she could be discharged. I would discharge her on the same medications that she was admitted on.
Clinical summary: 77 yo WF with hx afib on Eliquis, CAD s/p CABG x3, AVR 2013, RBBB, CHF, HTN, psoriasis. She had been scheduled for PVI in early June by Dr. Avina but this was canceled when she was admitted on June 11 with left-sided
numbness ultimately attributed to B12 deficiency. On 07/12/2023 she developed abrupt change in mental status with multiple episodes of syncope, EMS was called with HR dipping to 20's.� Atropine given en route and external pacing started.� ECG showed
flutter with complete heart block and ventricular escape rhythm in the 20s, upon arrival to the ER patient started on a dopamine gtt.�
Progress Note - Director Surgical
Subjective
Date of Service: July 14, 2023:
No complaints she wants to go home
No allergies, outpatient meds reviewed, inpatient Meds reviewed,
PMH/PSH/SH/FH: Reviewed
Allergies reviewed
ROS negative except as above
No labs today
Objective
Labs:
07/13/23 02:36
07/13/23 02:36
Labs
Hgb 14.0 g/dL (12.0-16.0) 07/13/23 02:36
Hct 39.4 % (37.0-47.0) 07/13/23 02:36
Plt Count 96 10^3/uL (130-400) L 07/13/23 02:36
PT 14.5 Sec (11.4-14.6) 07/12/23 14:33
INR 1.15 07/12/23 14:33
Sodium 139 mmol/L (135-145) 07/13/23 02:36
Potassium 4.5 mmol/L (3.5-5.1) 07/13/23 02:36
BUN 38 mg/dl (7-17) H 07/13/23 02:36
Creatinine 1.1 mg/dL (0.6-1.0) H 07/13/23 02:36
Glucose 115 mg/dl (70-99) H 07/13/23 02:36
Troponins
07/12/23 07/12/23 07/13/23
14:33 22:21 02:36
Troponin I 0.033 0.113 H* D 0.089 H*
07/13/23
08:30
Troponin I Cancelled
Vital Signs and I&O:
Vital Signs
Temp Pulse Resp BP Pulse Ox
36.8 C 70 18 160/59 96
07/14/23 03:24 07/14/23 08:11 07/14/23 07:59 07/14/23 08:11 07/14/23 07:59
Vital Signs
Temp Pulse Resp BP Pulse Ox
36.8 C 70 18 160/59 96
07/14/23 03:24 07/14/23 08:11 07/14/23 07:59 07/14/23 08:11 07/14/23 07:59
Intake & Output
07/12/23 07/13/23 07/14/23 07/15/23
07:59 07:59 07:59 07:59
Intake Total 685 / 685 480 / 480 480 / 480
Output Total 1200 / 1200
Balance 685 / 685 -720 / -720 480 / 480
Physical Exam
Physical Exam
160/59, pulse 70, respiratory rate 18, afebrile, sats 96%, head neck exam unremarkable, lungs clear, pacer pocket appears intact, soft systolic murmur, extremities without edema, pulses intact,
--- NOTE | 2023-07-14 11:04 | PTCARENOTE ---
lab work drawn and sent to lab as ordered.
[2023-07-14 11:21] LABS: ALT (SGPT) 71 U/L (0-35); AST (SGOT) 81 U/L (14-36); Albumin 3.3 g/dl (3.5-5.0); Alkaline Phosphatase 114 U/L (38-126); Blood Urea Nitrogen 31 mg/dl (7-17); Calcium 9.2 mg/dl (8.4-10.2); Carbon Dioxide 29 mmol/L (22-30); Chloride 101 mmol/L (98-107); Estimated Creatinine Clearance 66 ml/min; Glucose 111 mg/dl (70-99); Potassium 4.1 mmol/L (3.5-5.1); Sodium 135 mmol/L (135-145); Total Bilirubin 1.2 mg/dl (0.2-1.3); Total Protein 5.8 g/dl (6.3-8.2); eGFR > 60.00
[2023-07-14 11:47] VITALS: BP 115/103
[2023-07-14 11:48] VITALS: BP 121/42
[2023-07-14 11:49] VITALS: BP 121/42
--- NOTE | 2023-07-14 13:14 | PTCARENOTE ---
D/C instructions given to patient and , both verbalized understanding. the patient still is confused at times so was involved with discharge. INT x 2 D/C'd, telemetry D/C'd, persoanl belongings packed and sent home with patient. D/.C
to home via wc accompanied by staff.
[2023-07-15 19:41] LABS: Hepatitis C Antibody Negative (Negative)
== END 2023-07-14 13:30 | disposition home or self-care (01) | DRG 243 ==
LOC: IVU 15:44
PROVIDERS: Internal Medicine Cardiovascular Disease; Internal Medicine Interventional Cardiology; ADMITTING PHYSICIAN Student in an Organized Health Care Education/Training Program; ATTENDING PHYSICIAN Internal Medicine; EMERGENCY PHYSICIAN Emergency Medicine; FAMILY PHYSICIAN Family Medicine; OTHER PHYSICIAN Internal Medicine Interventional Cardiology
PROC: 02HK3JZ Insertion of Pacemaker Lead into Right Ventricle, Percutaneous Approach (ICD-10-PCS; 2023-07-12)
PROC: 0JH606Z Insertion of Pacemaker, Dual Chamber into Chest Subcutaneous Tissue and Fascia, Open Approach (ICD-10-PCS; 2023-07-12)
PROC: 02H63JZ Insertion of Pacemaker Lead into Right Atrium, Percutaneous Approach (ICD-10-PCS; 2023-07-12)
DX: I44.2 Atrioventricular block, complete (principal); I25.810 Atherosclerosis of coronary artery bypass graft(s) without angina pectoris; N17.9 Acute kidney failure, unspecified; I50.30 Unspecified diastolic (congestive) heart failure; I48.0 Paroxysmal atrial fibrillation; Z79.01 Long term (current) use of anticoagulants; I11.0 Hypertensive heart disease with heart failure; Z87.891 Personal history of nicotine dependence; Z95.3 Presence of xenogenic heart valve; F32.A Depression, unspecified; F41.9 Anxiety disorder, unspecified; E78.00 Pure hypercholesterolemia, unspecified
CPT/HCPCS: 33208; 33210; 71045; 76700; 80053; 82248; 83735; 84484; 85025; 85610; 86803; 93005; 96374; 96375; 97162; 97166; 99291; C1785; C1892; C1898; Q9967

== ENCOUNTER 2023-07-15 17:55 | Emergency (ER) | payer MEDICARE, SELFPAY ==
[2023-07-15 17:56] VITALS: BP 161/72
[2023-07-15 18:14] LABS: % Basophils 0.5 % (0-2); % Eosinophils 1.8 % (0-6); % Immature Granulocytes 0.6 % (0-0.5); % Lymphocytes 19.8 % (20.5-51.1); % Monocytes 9.3 % (1.7-9.3); Absolute Basophils 0.1 10^3/uL (0-0.2); Absolute Eosinophils 0.2 10^3/uL (0-0.7); Absolute Immature Granulocytes 0.1 10^3/uL (0-0.05); Absolute Lymphocytes 2.1 10^3/uL (1.2-3.4); Absolute Neutrophils 7.3 10^3/uL (1.4-6.5); Hematocrit 43.1 % (37.0-47.0); Hemoglobin 15.4 g/dL (12.0-16.0); Mean Corp Hgb Conc. 35.7 g/dL (33.0-37.0); Mean Corpuscular Hgb 34.5 pg (27.0-31.0); Mean Corpuscular Volume 96.4 fL (81.0-99.0); Mean Platelet Volume 10.5 fL (7.4-10.4); Nucleated Red Blood Cells % 0 %; Platelet Count 93 10^3/uL (130-400); Red Blood Cell Count 4.47 10^6/uL (4.20-5.40); Red Cell Dist. Width 14.6 % (11.5-14.5); White Blood Cell Count 10.7 10^3/uL (4.8-10.8)
[2023-07-15 18:26] LABS: ALT (SGPT) 58 U/L (0-35); AST (SGOT) 53 U/L (14-36); Albumin 3.8 g/dl (3.5-5.0); Alkaline Phosphatase 131 U/L (38-126); Blood Urea Nitrogen 20 mg/dl (7-17); Calcium 9.4 mg/dl (8.4-10.2); Carbon Dioxide 24 mmol/L (22-30); Chloride 100 mmol/L (98-107); Glucose 112 mg/dl (70-99); Sodium 136 mmol/L (135-145); Total Bilirubin 1.3 mg/dl (0.2-1.3); Total Protein 6.6 g/dl (6.3-8.2); eGFR > 60.00
[2023-07-15 18:33] VITALS: BMI 27.3
[2023-07-15 18:36] VITALS: BP 157/51
[2023-07-15 19:00] VITALS: BP 145/55
--- NOTE | 2023-07-15 19:15 | EDRN ---
Report Received, patient waiting to be seen, resting with at bedside, VSS
--- NOTE | 2023-07-15 19:51 | ED.GENMED ---
Addendum entered and electronically signed by Isahan Roldan DO 07/15/23 22:30:
Update prior to discharge patient smiling feeling better after Tylenol
Original Note:
History of Present Illness
General
Chief Complaint: Blood Pressure Problem
Source: patient, records and spouse
Exam Limitations: none
Time Seen by Provider: 07/15/23 19:33
Nursing documentation reviewed up to this point in time: agreed with
Travel History
Have you had any contact with someone who has COVID-19?: No
Do you have any symptoms of coronavirus? Fever > 100 degrees, chills, cough, shortness of breath, sore throat, loss of taste or smell, muscle aches, or headache?: No
History of Present Illness
History of Present Illness:
77-year-old female recently admitted with syncopal event low blood pressure found to be in heart block requiring pacemaker just discharged few days ago, since discharge for a day or so has been having some vague right-sided headache, no chest pain
or shortness of breath no nausea vomiting fever or chills, blood pressure was mildly elevated earlier normal now, pulse has been regular, did not yet take her evening meds, has no bruising no neck pain no abdominal pain does not typically get a lot
of headaches took no medications for the headache
Past History
Past History
ED Past Medical History: Arrthythmia, CAD, CHF, HTN and Other (Psoriasis)
ED Past Surgical History: Cardiac (Aortic valve replacement, CABG) and Orthopedic (Knee replacement)
Social History
Tobacco: Non-smoker
Alcohol: None
Drug: None
Personal:
Living: with family
Employment: Retired
Family History
Family History: Negative Early CAD
Review of Systems
Review of Systems
All Other Systems: Not applicable
Constitutional: Denies fever or fatigue
EENT: Reports no symptoms
Respiratory: Reports no symptoms
Cardiac: Reports no symptoms
ABD/GI: Reports no symptoms
: Reports no symptoms
Musculoskeletal: Reports no symptoms
Skin: Reports no symptoms
Neurological: Reports headache
Hematologic/Lymphatic: Reports no symptoms
Psychiatric: Reports no symptoms
Phy Exam
Physical Exam
Physical Exam:
Physical Exam
General: no apparent distress, not acutely ill
Neck: No tongue bite no obvious head or neck
Heart: Regular
Lungs: no acute respiratory distress. Pacer and anterior chest wall
Abdomen: Nontender
Neuro: alert and oriented. no focal neurological deficits
Skin: no rash
Psychiatric: well kept. interactive and cooperative
Extremities: no edema.
Course
Orders/Labs/Results
Orders:
Orders
07/15/23 17:58
Electrocardiogram (*1) Urgent
Reason for Study: Hypertension, Benign
EKG- Treatment ONCE
07/15/23 18:07
Complete Blood Count/With Diff Urgent
Comprehensive Metabolic Panel Urgent
07/15/23 19:42
CT Cervical Spine W/o Iv Contr Urgent
Comment:
Reason For Exam: fall
CT Head W/o Iv Contrast Urgent
Comment:
Reason For Exam: fall headache
07/15/23 19:49
Acetaminophen [Tylenol] 650 mg PO NOW STA
Abnormal Lab Results
07/15/23
18:07
MCH 34.5 H pg
(27.0-31.0)
RDW 14.6 H %
(11.5-14.5)
Plt Count 93 L 10^3/uL
(130-400)
MPV 10.5 H fL
(7.4-10.4)
Abs Immat Gran (auto) 0.1 H 10^3/uL
(0-0.05)
Absolute Neuts (auto) 7.3 H 10^3/uL
(1.4-6.5)
Absolute Monos (auto) 1.0 H 10^3/uL
(0.1-0.6)
Immature Gran % 0.6 H %
(0-0.5)
Lymphocytes % 19.8 L %
(20.5-51.1)
BUN 20 H mg/dl
(7-17)
Glucose 112 H mg/dl
(70-99)
AST 53 H U/L
(14-36)
ALT 58 H U/L
(0-35)
Alkaline Phosphatase 131 H U/L
(38-126)
07/15/23 18:07
07/15/23 18:07
Vital Signs
Initial and Last Documented VS:
Initial Vital Signs
Temp Pulse Resp BP Pulse Ox
98.7 F 72 18 161/72 97
07/15/23 17:56 07/15/23 17:56 07/15/23 17:56 07/15/23 17:56 07/15/23 17:56
Last Documented Vital Signs
Temp Pulse Resp BP Pulse Ox
98.7 F 73 9 147/61 96
07/15/23 17:56 07/15/23 21:20 07/15/23 21:20 07/15/23 21:00 07/15/23 21:20
MDM/Problems Addressed
Differential Diagnosis Includes:
Intracerebral hemorrhage subdural deconditioning dehydration nonspecific headache
MDM/Problems Addressed:
Headache
Chronic conditions affecting care: HTN and Cardiomyopathy
Acute Exacerbation and/or Progression of Chronic Illness: HTN and Cardiomyopathy
*Radiology
Radiology exam reviewed: preliminary read by ED provider
*Pulse Oximetry
Patient hypoxic: no
*[employer] Intern Interpretation
Rate: normal
Interpretation: normal
Heart Rate: 78
Rhythm: ventricular paced
*Critical Care Note
Total Time (30-74mins, 75-104mins- exclusive of procedures): Not Applicable
Update Note
Update Note:
10 PM CTs noted labs noted blood pressure reasonable
ED Attending Note
-
Portions of this chart may have been created with voice recognition software.� Occasional wrong word or��sound alike� substitutions may have occurred due to the inherent limitations of voice recognition software.
Discharge Plan
Departure
Patient Disposition: Home (Routine Discharge)
Date of Disposition: 07/15/23
Time of Disposition: 22:05
Patient with high blood pressure during this ER visit?: Yes
Condition: Good
Discharge Problem:
Headache
Instructions: Headache, Adult
Prescriptions:
No Action
atorvastatin 80 mg Tablet
80 mg PO HS
Rx Instructions:
stated that they get thru express script
metoprolol succinate 50 mg Tablet Extended Release 24 Hr
50 mg PO BID
valsartan 80 mg Tablet
80 mg PO DAILY
Eliquis 5 mg Tablet
5 mg PO BID
furosemide [Lasix] 40 mg tablet
20 mg PO DAILY
Patient Comments:
decrease dose on 07.04.23
amiodarone 200 mg Tablet
200 mg PO DAILY
Jardiance 10 mg Tablet
10 mg PO DAILY
Referrals:
Dylan Hurst MD [Family Provider] - Next open appointment
Activity Restrictions/Additional Instructions:
Drink plenty of fluids, take your medication as prescribed Tylenol as needed for headache
Interventions
Interventions:
*Risk Screen - Suicide Last Done: 07/15/23 17:56
*General Assessment Last Done: 07/15/23 17:56
*Neglect/Abuse Screening Last Done: 07/15/23 17:56
ED- Fall Risk Assessment Last Done: 07/15/23 18:33
*ED COVID-19 Vaccine History Last Done: 07/15/23 17:56
ED- Cardiac Assessment Last Done: 07/15/23 18:33
ED- Neurological Assessment Last Done: 07/15/23 18:33
ED- Pulmonary Assessment Last Done: 07/15/23 18:33
[2023-07-15 20:00] VITALS: BP 146/54
[2023-07-15] MEDS: TYLENOL 650 MG PO (20:15)
[2023-07-15 21:00] VITALS: BP 147/61
[2023-07-15 22:00] VITALS: BP 137/56
== END 2023-07-15 22:30 | disposition home or self-care (01) ==
LOC: EMR 17:55
PROVIDERS: Emergency Medicine; EMERGENCY PHYSICIAN Emergency Medicine; FAMILY PHYSICIAN Family Medicine
DX: R51.9 Headache, unspecified (principal); I11.0 Hypertensive heart disease with heart failure; I42.9 Cardiomyopathy, unspecified; I50.9 Heart failure, unspecified; Z95.2 Presence of prosthetic heart valve; Z95.0 Presence of cardiac pacemaker
CPT/HCPCS: 99285; 70450; 72125; 80053; 85025; 93005

== ENCOUNTER 2023-07-17 08:07 | Emergency (ER) | payer MEDICARE, SELFPAY ==
[2023-07-17] VITALS (8 sets, daily range): BP systolic 125–169; BP diastolic 48–94
--- NOTE | 2023-07-17 08:33 | ED.GENMED ---
History of Present Illness
General
Chief Complaint: Blood Pressure Problem
Source: patient and spouse
Exam Limitations: none
Time Seen by Provider: 07/17/23 08:15
Travel History
Have you had any contact with someone who has COVID-19?: No
Do you have any symptoms of coronavirus? Fever > 100 degrees, chills, cough, shortness of breath, sore throat, loss of taste or smell, muscle aches, or headache?: No
History of Present Illness
History of Present Illness:
77-year-old female recent complicated history with emergent pacemaker placement for severe bradycardia atrial fibrillation flutter. Patient returns today primarily complaining of bifrontal headache and some tingling in both her feet. She has had
some headaches on and off since the procedure. Seen the other day for same with a negative head CT. Headache started recurring last night along with tingling in her feet. No speech issues visual issues no fever no gait issues no focal weakness.
Also concerned because her blood pressures have been in the 1 60-1 70 range over 90. Also noted her heart rate over 100 last the
Past History
Past History
ED Past Medical History: Arrthythmia, CAD, CHF, HTN and Other (Psoriasis)
ED Past Surgical History: Cardiac (Aortic valve replacement, CABG) and Orthopedic (Knee replacement)
Social History
Tobacco: Non-smoker
Alcohol: None
Drug: None
Personal:
Living: with family
Employment: Retired
Family History
Family History: Negative Early CAD
Review of Systems
Review of Systems
All Other Systems: Not applicable
Constitutional: Denies fever
Respiratory: Denies trouble breathing
Cardiac: Denies chest pain or syncope
Phy Exam
Physical Exam
Physical Exam:
GENERAL: Alert and oriented in no apparent distress
EYE: Orbits normal. Extraocular muscles intact. Discharge
NECK: Supple
CARDIAC: Mildly irregular. Mildly tachycardic. Pacemaker left upper chest wall with bandage placed
LUNGS: Clear breath sounds,normal
ABDOMEN: Soft, without focal tenderness or distention
NEUROLOGICAL: Alert and oriented , speech normal. Cranial nerves II through XII intact. [id number] normal. Some subjective paresthesias to both lower extremities but patient does sense light touch.
SKIN: Warm and dry, no rash or lesion, no discoloration, skin intact.
MUSCULOSKELETAL: No edema,no deformity.Good color
PSYCH: Normal and appropriate interaction.
Course
Orders/Labs/Results
Orders:
Orders
07/17/23 08:13
Electrocardiogram (*1) Urgent
Reason for Study: Hypertension, Benign
EKG- Treatment ONCE
07/17/23 08:30
Cardiac Monitoring- Treatment ONCE
IV Insert/Care/Rem.- Treatment PRN
Pulse Ox/cont/shift [RESP] Stat
Quantity: 1
07/17/23 08:59
Complete Blood Count/With Diff Urgent
07/17/23 09:38
Acetaminophen [Tylenol] 650 mg PO NOW STA
07/17/23 09:54
Comprehensive Metabolic Panel Urgent
Troponin I Urgent
Abnormal Lab Results
07/17/23 07/17/23
08:59 09:54
MCH 34.2 H pg
(27.0-31.0)
RDW 14.6 H %
(11.5-14.5)
Plt Count 124 L D 10^3/uL
(130-400)
MPV 10.9 H fL
(7.4-10.4)
Absolute Monos (auto) 0.7 H 10^3/uL
(0.1-0.6)
Immature Gran % 0.6 H %
(0-0.5)
Monocytes % 9.5 H %
(1.7-9.3)
BUN 23 H mg/dl
(7-17)
Glucose 107 H mg/dl
(70-99)
AST 43 H U/L
(14-36)
ALT 45 H U/L
(0-35)
Alkaline Phosphatase 152 H U/L
(38-126)
07/17/23 08:59
07/17/23 09:54
Vital Signs
Initial and Last Documented VS:
Initial Vital Signs
Temp Pulse Resp BP Pulse Ox
98.7 F 69 20 169/94 98
07/17/23 08:10 07/17/23 08:10 07/17/23 08:10 07/17/23 08:10 07/17/23 08:10
Last Documented Vital Signs
Temp Pulse Resp BP Pulse Ox
98.7 F 84 16 125/51 97
07/17/23 08:10 07/17/23 13:45 07/17/23 13:45 07/17/23 13:26 07/17/23 13:15
MDM/Problems Addressed
Differential Diagnosis Includes:
Patient's major concerns are ongoing bifrontal headache, paresthesias to the lower extremities and blood pressure. Blood pressure is mildly elevated but not of immediate concern. Neurologic exam is normal. Patient is not sick but appears upset
over her recent medical issues. She does appear to be mildly tachycardic and irregular. Her atrial fibrillation may have overriding her pacemaker. Workup in progress.
*Critical Care Note
Total Time (30-74mins, 75-104mins- exclusive of procedures): Not Applicable
Data Reviewed
Review of Other/Old Records Reveals: Labs, Records, Operative Reports and Discharge Summary
Update Note
Update Note:
Initially patient was going to be admitted. Complicated recent pacemaker placement. Neurologically stable. However with the left facial and left arm paresthesias along with headache heart racing at home warranted specialty involvement. Neurology
and cardiology both saw the patient and cleared her for discharge.
ED Attending Note
-
Portions of this chart may have been created with voice recognition software.� Occasional wrong word or��sound alike� substitutions may have occurred due to the inherent limitations of voice recognition software.
Discharge Plan
Departure
Patient Disposition: Home (Routine Discharge)
Date of Disposition: 07/17/23
Time of Disposition: 10:15
Patient with high blood pressure during this ER visit?: Yes
Discharge Problem:
Headache/paresthesias, Recent pacemaker, Chronic atrial fibrillation
Instructions: Headache, Adult (DC), Paresthesia (DC), BLOOD PRESSURE
Prescriptions:
New
valsartan 80 mg tablet
80 mg PO BID Qty: 60 0RF
furosemide [Lasix] 40 mg tablet
40 mg PO DAILY Qty: 30 0RF
Continued
atorvastatin 80 mg Tablet
80 mg PO HS
Rx Instructions:
stated that they get thru express script, NO PHARMACY FILLS
metoprolol succinate 50 mg Tablet Extended Release 24 Hr
50 mg PO BID
Eliquis 5 mg Tablet
5 mg PO BID
amiodarone 200 mg Tablet
200 mg PO DAILY
Jardiance 10 mg Tablet
10 mg PO DAILY
acetaminophen [Tylenol] 325 mg Tablet
650 mg PO QIDPRN PRN (Reason: MILD PAIN)
cyanocobalamin (vitamin B-12) 1,000 mcg Tablet
1,000 mcg PO DAILY
Discontinued
valsartan 80 mg Tablet
160 mg PO DAILY
Rx Instructions:
INCREASE DOSE AFTER PACEMAKER INSTALLMENT
furosemide [Lasix] 40 mg tablet
20 mg PO DAILY
Patient Comments:
decrease dose on 07.04.23
Referrals:
Dylan Hurst MD [Family Provider] -
Jessica Donis MD [Active] - 07/19/23 1:20 am (You have an appt for an incision check this 07/19/23 at 1:20 in the [facility] office. You are then scheduled to see the electrophysiology nurse practitioner on 08/12/23 at 1 PM.)
Activity Restrictions/Additional Instructions:
-Decrease Lasix (furosemide) to 40 mg once a day
-Increase Toprol XL (metoprolol succinate) to 50 mg twice a day
-Change Diovan (valsartan) to 80 mg once per day.
Follow-up closely with your primary physician and with cardiology
Interventions
Interventions:
*Risk Screen - Suicide Last Done: 07/17/23 08:10
*General Assessment Last Done: 07/17/23 08:10
*Neglect/Abuse Screening Last Done: 07/17/23 08:10
ED- Fall Risk Assessment Last Done: 07/17/23 09:45
*ED COVID-19 Vaccine History Last Done: 07/17/23 09:45
*Nursing Disposition Last Done: 07/17/23 15:06
ED- Cardiac Assessment Last Done: 07/17/23 09:45
ED- Neurological Assessment Last Done: 07/17/23 09:45
ED- Pulmonary Assessment Last Done: 07/17/23 09:45
Discharge Date and Time
Discharge Date/Time: 07/17/23 15:06
[2023-07-17 09:13] LABS: % Basophils 0.8 % (0-2); % Eosinophils 2.5 % (0-6); % Immature Granulocytes 0.6 % (0-0.5); % Lymphocytes 21.8 % (20.5-51.1); % Monocytes 9.5 % (1.7-9.3); % Neutrophils 64.8 % (42.2-75.2); Absolute Basophils 0.1 10^3/uL (0-0.2); Absolute Eosinophils 0.2 10^3/uL (0-0.7); Absolute Lymphocytes 1.6 10^3/uL (1.2-3.4); Absolute Monocytes 0.7 10^3/uL (0.1-0.6); Absolute Neutrophils 4.6 10^3/uL (1.4-6.5); Hematocrit 45.5 % (37.0-47.0); Hemoglobin 15.9 g/dL (12.0-16.0); Mean Corp Hgb Conc. 34.9 g/dL (33.0-37.0); Mean Corpuscular Hgb 34.2 pg (27.0-31.0); Mean Corpuscular Volume 97.8 fL (81.0-99.0); Mean Platelet Volume 10.9 fL (7.4-10.4); Nucleated Red Blood Cells % 0 %; Platelet Count 124 10^3/uL (130-400); Red Blood Cell Count 4.65 10^6/uL (4.20-5.40); Red Cell Dist. Width 14.6 % (11.5-14.5); White Blood Cell Count 7.1 10^3/uL (4.8-10.8)
[2023-07-17] MEDS: TYLENOL 650 MG PO (09:42)
[2023-07-17 10:23] LABS: Troponin I 0.016 ng/ml
[2023-07-17 10:49] LABS: ALT (SGPT) 45 U/L (0-35); AST (SGOT) 43 U/L (14-36); Alkaline Phosphatase 152 U/L (38-126); Blood Urea Nitrogen 23 mg/dl (7-17); Calcium 9.3 mg/dl (8.4-10.2); Carbon Dioxide 28 mmol/L (22-30); Chloride 102 mmol/L (98-107); Glucose 107 mg/dl (70-99); Potassium 3.5 mmol/L (3.5-5.1); Sodium 136 mmol/L (135-145); Total Bilirubin 1.1 mg/dl (0.2-1.3); Total Protein 6.8 g/dl (6.3-8.2); eGFR > 60.00
--- NOTE | 2023-07-17 12:27 | CON.NEURO ---
Consultation
Order
CC: none
HPI: This is a 77-year-old left-handed woman who presented to [facility] on July 17, 2023 with multiple symptoms. According to the patient she woke up in the middle of the night with sensation that 'something is wrong'. She had
palpitations as well paresthesias in the left arm and leg with associated right frontal discomfort. She states that 'I wanted to make sure I can walk '. She was able to ambulate with a slight dizziness upon getting up and took Tylenol with
improvement of the pain. She started to check the web on her phone and was wondering if 'was there anything wrong I did for my pacemaker to malfunction '. After the Internet search for anxiety through prompting the evaluation.
Ms. Land recalls intermittent right frontal headache with associated left-sided paresthesias since summer 2022.
No reports of visual symptoms, motor deficits or abnormal movements. Ms. Land states that she has been compliant with Eliquis. She was seen with similar complaints in June, and had unremarkable work up.
ER VS: 169/94, 69-90.
PDMP:none
Labs: Glucose�107, normal sodium, creatinine, WBC.
Vit B12-308.
CT head-mild diffuse atrophy
Brain MRI wo jayme(06/12/2023) done for left sided paresthesias showed no acute abnormalities.
MRA head neck-head(06/12/2023) no hemodynamically significant stenosis.
PMH: CAD, A-Fib, HTN, vit D deficiency, JAYME, psoriasis, osteopenia, OA, pulmonary nodule
PSH: CABG, AVR, PPM, L knee arthroscopy
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
FH:mother-colon cancer.
All:NKDA
ROS: Constitutional: Negative. Negative for chills, fever and unexpected weight change.
HENT: positive for intermittent vertigo
Eyes: Negative. Negative for photophobia, pain and visual disturbance.
Respiratory: Negative for cough, choking and shortness of breath.
Cardiovascular: Negative for chest pain, palpitations and leg swelling.
Gastrointestinal: Negative for abdominal pain and vomiting.
Endocrine: Negative. Negative for cold intolerance.
Genitourinary: Negative for dysuria, flank pain and urgency.
Musculoskeletal: Negative for back pain, gait problem, neck pain and neck stiffness.
Skin: Negative for rash.
Allergic/Immunologic: Negative. Negative for immunocompromised state.
Neurological: positive for headache, hemisensory symptoms, intermittent imbalance
Psychiatric/Behavioral: positive for anxiety
General: Well developed. In no acute distress.
Cardio: Regular rate and rhythm without murmur. Extremities are without cyanosis or edema.
Neuro:
Mental Status: Alert, oriented to person, place, date. Anxious mood. Intermittently impaired attention and preserved comprehension.Follows complex requests across the midline. Comprehension, naming, and repetition intact.
Cranial Nerves: . Pupils are equally round and reactive to light. EOMs full. Visual puga full to confrontation. No ptosis. No nystagmus. V1-V3 intact to light touch and pinprick bilaterally, symmetric. Face symmetric. Normal hearing AU.
The palate elevated well. SCMs and traps 5/5. Tongue midline. No dysarthria.
Motor: Normal bulk and tone. No pronator or arm drift. Strength 5/5 throughout. No clonus.
Reflexes: 2+ throughout the upper extremities and 3+ knees. Plantar responses flexor bilaterally. Neg Espinal's, grasp.
Sensory: reduced vibration at the toes
Coordination: No dysmetria or tremor.
Gait: deferred
Assessment and Plan:
I. Recurrent headache/hemisensory symptoms. Differential diagnosis includes: migraine with aura vs somatization vs less likely focal sensory seizure
II . JAYME
III. PA A-Fib.
-Consider alternative therapy to Escitalopram(known to cause headache in up to 24% of treated patients)
-Tylenol 500 mg Q8h PRN
-OP neurology follow up in 2-3 weeks.
I reviewed all radiology and labs along with past medical records pertinent to current medical problems.
Thank you for allowing us to participate in the care of this patient. Please do not hesitate to contact us with any questions or concerns.
Subjective/Objective
Subjective Data
Date of Service: July 17, 2023
Objective Data
Vital Signs
Temp Pulse Resp BP Pulse Ox
37.1 C 71 14 141/48 97
07/17/23 08:10 07/17/23 12:15 07/17/23 12:15 07/17/23 10:30 07/17/23 12:15
Lab Results
07/17/23 08:59
07/17/23 09:54
Sodium 136 mmol/L (135-145) 07/17/23 09:54
Potassium 3.5 mmol/L (3.5-5.1) 07/17/23 09:54
BUN 23 mg/dl (7-17) H 07/17/23 09:54
Glucose 107 mg/dl (70-99) H 07/17/23 09:54
Calcium 9.3 mg/dl (8.4-10.2) 07/17/23 09:54
Patient Allergies
No Known Allergies Allergy (Verified 07/17/23 08:09)
Medications
-
Home Medications
Medication Instructions Recorded
apixaban 5 mg tablet (Eliquis) 5 mg PO BID Blood Clot 02/02/23
Prevention/Tx
atorvastatin 80 mg tablet 80 mg PO HS High Cholesterol 02/02/23
metoprolol succinate 50 mg 50 mg PO BID Blood Pressure 02/02/23
tablet,extended release 24 hr
valsartan 80 mg tablet 160 mg PO DAILY Blood Pressure 02/02/23
amiodarone 200 mg tablet 200 mg PO DAILY Arrhythmia 04/01/23
empagliflozin 10 mg tablet 10 mg PO DAILY Diabetes 04/01/23
(Jardiance)
furosemide 40 mg tablet (Lasix) 20 mg PO DAILY Fluid 04/01/23
Retention/Swelling
acetaminophen 325 mg tablet 650 mg PO QIDPRN PRN MILD PAIN 07/17/23
(Tylenol)
cyanocobalamin (vitamin B-12) 1,000 mcg PO DAILY Supplement 07/17/23
1,000 mcg tablet
Vital Signs and Labs
-
Vital Signs and Labs:
Vital Signs
Temp Pulse Resp BP Pulse Ox
37.1 C 70 16 141/48 95
07/17/23 08:10 07/17/23 12:45 07/17/23 12:45 07/17/23 10:30 07/17/23 12:45
Lab Results
07/17/23 08:59
07/17/23 09:54
Sodium 136 mmol/L (135-145) 07/17/23 09:54
Potassium 3.5 mmol/L (3.5-5.1) 07/17/23 09:54
BUN 23 mg/dl (7-17) H 07/17/23 09:54
Glucose 107 mg/dl (70-99) H 07/17/23 09:54
Calcium 9.3 mg/dl (8.4-10.2) 07/17/23 09:54
Home Medications
-
Home Medications
apixaban 5 mg tablet (Eliquis) 5 mg PO BID Blood Clot Prevention/Tx 02/02/23
atorvastatin 80 mg tablet 80 mg PO HS High Cholesterol 02/02/23
metoprolol succinate 50 mg tablet,extended release 24 hr 50 mg PO BID Blood Pressure 02/02/23
valsartan 80 mg tablet 160 mg PO DAILY Blood Pressure 02/02/23
amiodarone 200 mg tablet 200 mg PO DAILY Arrhythmia 04/01/23
empagliflozin 10 mg tablet (Jardiance) 10 mg PO DAILY Diabetes 04/01/23
furosemide 40 mg tablet (Lasix) 20 mg PO DAILY Fluid Retention/Swelling 04/01/23
acetaminophen 325 mg tablet (Tylenol) 650 mg PO QIDPRN PRN MILD PAIN 07/17/23
cyanocobalamin (vitamin B-12) 1,000 mcg tablet 1,000 mcg PO DAILY Supplement 07/17/23
--- NOTE | 2023-07-17 12:49 | CON.CAR ---
Addendum entered and electronically signed by Jessica Donis MD 07/17/23 16:56:
I saw and examined the patient.
The [employer] Supervisor's note was reviewed and I agree with the note.
Comment: Patient is known to me from outpatient setting. Briefly, Ms. Land is a 77-year-old female with extensive past medical history including hypertension, hyperlipidemia, anxiety/depression, B12 deficiency, coronary artery disease status post
CABG in 2013 with a NELSON to LAD, sequential to diagonal, SVG to OM, bioprosthetic AVR, right bundle branch block, right bundle branch, Persistent atrial fibrillation on Eliquis, recent admission for heart block status post Medtronic dual-chamber
pacemaker on July 12 who presents with recurrent headaches, paresthesias in her fingers along with lightheadedness and dizziness that is positional found to have positive orthostatic vital signs.
We checked her recently placed device and it is functioning normally with 100% atrial fibrillation noted since the device went in Saturday. Overall rates are fairly well-controlled in A-fib with intermittent tachycardia. ECG otherwise does not show
any new ischemic changes. Lab work reviewed as well.
Exam is notable for a well-appearing female in no acute distress, normal S1 and S2, irregularly irregular rhythm, 2 out of 6 systolic ejection murmur, lungs are clear to auscultation bilaterally, abdomen is soft, nontender, nondistended with active
bowel sounds, warm extremities without edema.
Recommendations:
1. We discussed that her ongoing lightheadedness/dizziness, positional in nature is likely due to underlying orthostatic hypotension. We recommend decreasing her Lasix to 40 mg daily to help her stay well-hydrated. We will also decrease her
valsartan back to 80 mg daily for now with close monitoring of her blood pressure which they keep a log of them will bring along with them at her next office visit.
2. For her atrial fibrillation, for intermittent rapid rates, we will increase her Toprol-XL to 50 mg twice daily and she will continue to stay on the amiodarone as well as Eliquis for now. We will work with our team to get her reconnected with EP
for further discussions in regards to ablation for more definitive treatment.
3. We discussed that her headaches and paresthesias are not quite explained by underlying cardiac etiologies and thus we would defer to neurology for potential I am not sure if this is related to her underlying vitamin B12 deficiency. Would
recommend further workup to neurology. We discussed with her that she would keep her appointment as scheduled on Saturday where we will check her orthostatic vitals again along with do a wound check of the pacemaker. They know to call us with any
new symptoms or complaints before then.
Stable for discharge from a cardiac standpoint.
Jessica Donis MD, [facility], [facility]
Original Note:
Consultation
Consultation Request
Date/Time Consultation Requested: 07/17/23
Date/Time Consultation Performed: 07/17/23
Requesting Provider: Dr. Velasco in the ER
Performing Provider: Dr. Donis
Reason for Consultation: GLASS, paresthesias, BP and HR concerns
Medical History
-
History of Present Illness:
[facility] with GLASS and paresthesias and cardiology is consulted due to recent PPM and concerns for blood pressure and HRs. Patient with a h/o paroxysmal Afib was seen by EP in the office and scheduled for a PVI 06/07/23, but this was
cancelled when she was [facility] with left sided paresthesias. She was seen by vascular surgery for possible carotid disease, but ultimately an MRA carotids indicated less than 50% B/L ICA stenoses. Patient was seen by Neurology and MRI brain
was normal without evidence of CVA and patient was ultimately started on treatment for B12 deficiency. Patient was [facility]23 with complete heart block and syncope and after a temporary wire was emergently placed she proceeded to
have a Medtronic DC PPM. Patient was discharged to home 07/14/23, but [facility] 07/15/[address] head was unremarkable and patient was discharged to home and called the cardiology office later that day and was told to increase valsartan to
160 mg daily. Patient says that she is dizzy any time she sits up and then worse with standing up. She came to [facility] with those symptoms today.
PMH:
s/p Medtronic DC PPM 07/12/23
Paroxysmal Afib
Chronic Eliquis OAC
Chronic amiodarone therapy
CAD s/p CABG with NELSON to LAD seq to Diag-1 and SVG to OM 2013
s/p tissue AVR 2013
Right bundle branch block
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
Psoriasis
Hypertension
Hyperlipidemia
Anxiety/depression
B12 deficiency
Past Medical History
Past Medical History: Other (in HPI)
Past Surgical History: Cardiac (CABG and tissue AVR 2013, CV 02/05/23 and KG/CV 04/08/23)
Social History
Tobacco: Former Smoker
Alcohol: Occasional
Drug: None
Personal:
Living: With Family
Family History
Family History: CAD and Cancer
Allergies / Home Medications
Allergy/AdvReac Type Severity Reaction Status Date / Time
No Known Allergies Allergy Verified 07/17/23 08:09
Medication Instructions Recorded Confirmed Type
apixaban 5 mg tablet (Eliquis) 5 mg PO BID Blood Clot 02/02/23 07/17/23 History
Prevention/Tx
atorvastatin 80 mg tablet 80 mg PO HS High Cholesterol 02/02/23 07/17/23 History
metoprolol succinate 50 mg 50 mg PO BID Blood Pressure 02/02/23 07/17/23 History
tablet,extended release 24 hr
valsartan 80 mg tablet 160 mg PO DAILY Blood Pressure 02/02/23 07/17/23 History
amiodarone 200 mg tablet 200 mg PO DAILY Arrhythmia 04/01/23 07/17/23 History
empagliflozin 10 mg tablet 10 mg PO DAILY Diabetes 04/01/23 07/17/23 History
(Jardiance)
furosemide 40 mg tablet (Lasix) 20 mg PO DAILY Fluid 04/01/23 07/17/23 History
Retention/Swelling
acetaminophen 325 mg tablet 650 mg PO QIDPRN PRN MILD PAIN 07/17/23 07/17/23 History
(Tylenol)
cyanocobalamin (vitamin B-12) 1,000 mcg PO DAILY Supplement 07/17/23 07/17/23 History
1,000 mcg tablet
Review of Systems
-
History Source: Patient and Family ( sitting bedside helps with HPI)
All other systems: Negative unless noted
Physical Exam
Vital Signs
Temp Pulse Resp BP Pulse Ox
98.7 F 71 14 141/48 97
07/17/23 08:10 07/17/23 12:15 07/17/23 12:15 07/17/23 10:30 07/17/23 12:15
GEN: NAD. AAOx3
HEENT: EOMI, MMM
LUNGS: CTA B/L, no wheezes or rales
CV: Reg, S1/S2, 1/6 syst LSB
ABD: soft, BS+, NT, ND
EXT: No clubbing, cyanosis, lesions or edema B/L
NEURO: Gross non-focal
SKIN: Warm, dry and pink. No rash
Lab Results
07/17/23 08:59
07/17/23 09:54
Troponin I 0.016 ng/ml 07/17/23 09:54
Impression / Plan
-
PCP: Dylan Hurst MD
Primary Cardiology: Jessica Donis MD
Impression:
GLASS and paresthesias in the ER 07/17/23
Orthostasis
s/p Medtronic DC PPM 07/12/23
Paroxysmal Afib
Chronic Eliquis OAC
Chronic amiodarone therapy
CAD s/p CABG with NELSON to LAD seq to Diag-1 and SVG to OM 2013
s/p tissue AVR 2013
Right bundle branch block
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
Psoriasis
Hypertension
Hyperlipidemia
Anxiety/depression
B12 deficiency
KG 04/08/23: LVEF 45-50%, mild enlarged RV, biatrial enlargement, moderate MR, well seated AVR with mild AR, Moderate TR
Plan:
-[facility] with GLASS and paresthesias and cardiology is consulted due to recent PPM and concerns for blood pressure and HRs. Patient with a h/o paroxysmal Afib was seen by EP in the office and scheduled for a PVI 06/07/23, but this was
cancelled when she was [facility] with left sided paresthesias. She was seen by vascular surgery for possible carotid disease, but ultimately an MRA carotids indicated less than 50% B/L ICA stenoses. Patient was seen by Neurology and MRI brain
was normal without evidence of CVA and patient was ultimately started on treatment for B12 deficiency. Patient was [facility]23 with complete heart block and syncope and after a temporary wire was emergently placed she proceeded to
have a Medtronic DC PPM. Patient was discharged to home 07/14/23, but [facility] 07/15/[address] head was unremarkable and patient was discharged to home and called the cardiology office later that day and was told to increase valsartan to
160 mg daily. Patient says that she is dizzy any time she sits up and then worse with standing up. [facility] symptoms today.
-Performed orthostatic vital signs myself and supine heart rate 95 with blood pressure 150/72, sitting heart rate 87 blood pressure 156/61 and standing heart rate 95 blood pressure 125/51. Patient was dizzy transitioning from supine to sitting and
dizzy again transitioning from sitting to standing. Overall symptoms improved with time. Patient felt better when returned to supine position.
-Patient with orthostasis so we will decrease Lasix to 40 mg daily.
-[facility] transmission reviewed and patient has been in atrial fibrillation since pacemaker implanted on 07/12/2023. Heart rates are generally 100. Will increase Toprol-XL to 50 mg twice daily. Reviewed with patient and and they
state that they were taking this daily even though it is listed as a twice daily on her outpatient medication reconciliation list.
-Recently the patient's valsartan was increased to 160 mg daily. Due to hypotension will decrease valsartan back to 80 mg daily and if SBP is less than 110 she will hold the dose.
-Patient is scheduled for a incision check at the [facility] office on 07/19/2023 at 120 and we will check orthostatic vital signs at that time.
-Patient will follow-up with electrophysiology on 08/12/2023 at 1 PM to discuss consideration for PVI that was previously scheduled for 06/07/2023.
== END 2023-07-17 15:06 | disposition home or self-care (01) ==
LOC: EMR 08:07
PROVIDERS: EMERGENCY PHYSICIAN Emergency Medicine; FAMILY PHYSICIAN Family Medicine; OTHER PHYSICIAN Internal Medicine Interventional Cardiology; OTHER PHYSICIAN Psychiatry & Neurology Neurology
DX: R51.9 Headache, unspecified (principal); R20.2 Paresthesia of skin; R42 Dizziness and giddiness; R00.2 Palpitations; I48.0 Paroxysmal atrial fibrillation; I25.10 Atherosclerotic heart disease of native coronary artery without angina pectoris; F41.1 Generalized anxiety disorder; F32.A Depression, unspecified; I11.0 Hypertensive heart disease with heart failure; I50.22 Chronic systolic (congestive) heart failure; E53.8 Deficiency of other specified B group vitamins; I44.2 Atrioventricular block, complete; E78.5 Hyperlipidemia, unspecified; L40.9 Psoriasis, unspecified; E55.9 Vitamin D deficiency, unspecified; M85.80 Other specified disorders of bone density and structure, unspecified site; M19.90 Unspecified osteoarthritis, unspecified site; R91.1 Solitary pulmonary nodule; Z95.0 Presence of cardiac pacemaker; Z95.1 Presence of aortocoronary bypass graft; Z95.2 Presence of prosthetic heart valve; Z96.659 Presence of unspecified artificial knee joint; Z87.891 Personal history of nicotine dependence; Z79.01 Long term (current) use of anticoagulants; Z79.899 Other long term (current) drug therapy
CPT/HCPCS: 99285; 80053; 84484; 85025; 93005

== ENCOUNTER → 2023-09-11 07:59 | Outpatient (REF) | payer MEDICARE, SELFPAY ==
[2023-09-11 08:58] LABS: % Basophils 1.1 % (0-2); % Eosinophils 3.7 % (0-6); % Immature Granulocytes 0.4 % (0-0.5); % Lymphocytes 29.4 % (20.5-51.1); % Monocytes 9.9 % (1.7-9.3); % Neutrophils 55.5 % (42.2-75.2); Absolute Basophils 0.1 10^3/uL (0-0.2); Absolute Eosinophils 0.3 10^3/uL (0-0.7); Absolute Lymphocytes 2.4 10^3/uL (1.2-3.4); Absolute Monocytes 0.8 10^3/uL (0.1-0.6); Absolute Neutrophils 4.6 10^3/uL (1.4-6.5); Hematocrit 46.6 % (37.0-47.0); Hemoglobin 15.7 g/dL (12.0-16.0); Mean Corp Hgb Conc. 33.7 g/dL (33.0-37.0); Mean Corpuscular Hgb 33.8 pg (27.0-31.0); Mean Corpuscular Volume 100.2 fL (81.0-99.0); Mean Platelet Volume 10.7 fL (7.4-10.4); Nucleated Red Blood Cells % 0 %; Platelet Count 127 10^3/uL (130-400); Red Blood Cell Count 4.65 10^6/uL (4.20-5.40); Red Cell Dist. Width 13.5 % (11.5-14.5); White Blood Cell Count 8.2 10^3/uL (4.8-10.8)
[2023-09-11 09:07] LABS: INR 1.29; PT 16.1 Sec (11.4-14.6)
[2023-09-11 10:23] LABS: ALT (SGPT) 23 U/L (0-35); AST (SGOT) 33 U/L (14-36); Albumin 4.2 g/dl (3.5-5.0); Alkaline Phosphatase 122 U/L (38-126); Blood Urea Nitrogen 27 mg/dl (7-17); Calcium 9.5 mg/dl (8.4-10.2); Carbon Dioxide 33 mmol/L (22-30); Chloride 99 mmol/L (98-107); Glucose 87 mg/dl (70-99); Magnesium 2.4 mg/dl (1.6-2.3); Potassium 3.9 mmol/L (3.5-5.1); Sodium 136 mmol/L (135-145); Total Bilirubin 0.9 mg/dl (0.2-1.3); eGFR 51.75
== END ==
LOC: SDSPAT 07:59
PROVIDERS: ATTENDING PHYSICIAN Internal Medicine Cardiovascular Disease; FAMILY PHYSICIAN Family Medicine; OTHER PHYSICIAN Internal Medicine Interventional Cardiology
DX: Z01.818 Encounter for other preprocedural examination (principal); I48.91 Unspecified atrial fibrillation; I48.0 Paroxysmal atrial fibrillation; I48.92 Unspecified atrial flutter
CPT/HCPCS: 36415; 75572; 80053; 83735; 85025; 85610; 86850; 86900; 86901; 93005; Q9967

== ENCOUNTER 2023-09-25 06:07 | Day surgery (SDC) | payer MEDICARE, SELFPAY ==
[2023-09-11 08:12] VITALS: BMI 27.7
[2023-09-25] VITALS (13 sets, daily range): BP systolic 96–146; BP diastolic 33–59; BMI 27.5
[2023-09-25 09:49] LABS: ACT-LR - POC 355 Seconds (116-155)
[2023-09-25 10:15] LABS: ACT-LR - POC 384 Seconds (116-155)
[2023-09-25 10:40] LABS: ACT-LR - POC 382 Seconds (116-155)
[2023-09-25 11:05] LABS: ACT-LR - POC 395 Seconds (116-155)
[2023-09-25 11:22] LABS: ACT-LR - POC 380 Seconds (116-155)
[2023-09-25 11:47] LABS: ACT-LR - POC 360 Seconds (116-155)
[2023-09-25 12:10] LABS: ACT-LR - POC 347 Seconds (116-155)
[2023-09-25 12:45] LABS: ACT-LR - POC 163 Seconds (116-155)
--- NOTE | 2023-09-25 12:50 | ITS.CL.ABL ---
Automotive Software Engineer - Ablation
Ablation
Procedure Report:
Primary Hydraulic Miner Blasting: Jessica Donis MD
Procedure Date: 09/25/2023
Patient History:
Patient is a pleasant 77-year-old female with a past medical history significant for paroxysmal atrial fibrillation, paroxysmal atrial flutter, HFpEF, hypertension, hyperlipidemia, CAD status post CABG, aortic stenosis with bioprosthetic AVR, right
bundle branch block, LAFB, former smoker who presents for elective ablation of paroxysmal atrial arrhythmias.
Indication:
Symptomatic paroxysmal atrial flutter
Symptomatic paroxysmal atrial fibrillation
Recurrence of atrial arrhythmia on antiarrhythmic
Arrhythmia Specific History:
Prior Medical Therapies for Rate and Rhythm Control:
X Beta-tanesha
[ ] Calcium channel-tanesha
X Amiodarone
[ ] Dronederone
[ ] Sotalol
[ ] Flecainide
[ ] Dofetilide
[ ] Options limited by bradycardia
[ ] Options limited by comorbid renal disease
Prior Procedural Therapies for AF/AFL:
X Cardioversion
[ ] Pulmonary Vein Isolation
[ ] Posterior Wall Isolation
[ ] Additional lines (Specify)
[ ] Surgical Mccauley-MAZE or PVI (Specify)
Procedure Performed:
X AF ablation procedure (83087) -- includes LA/CS pacing, trans-septal, 3D mapping, + ICE
[ ] +IV drug (62880)
X +Other Arrhythmia (16762) -- typical atrial flutter (CTI RFA)
[ ] +Other AF Line/ablation (90024)
Risks and expected recovery has been explained in detail. Alternative options have been explored, and in a shared-decision making fashion we have decided that this was the most appropriate procedure.
Method
NPO status confirmed. Grounding pad applied. Defibrillator pads applied. Continuous surface ECG, pulse oximetry, and blood pressure were monitored. Procedure was performed under general anesthesia, with anesthesia services.
Both groins were clipped, prepped with Chloraprep, and draped in sterile fashion. Time out was called. Local anesthesia administered with bupivacaine. The right and left femoral veins were accessed for catheter placement, using ultrasound guidance,
micro-puncture needle/wire, and modified seldinger technique. 3 sheaths were placed. The following catheters were used:
X Tacticath SE (D/F Curve) ablation catheter
X Viewflex 9Fr ICE catheter
X Inquiry decapolar 6Fr diagnostic catheter
[ ] CRD Hex 6Fr
X Arctic Front Advance Cryoballoon (28mm)
X Achieve Advance mapping catheter (15mm)
[ ] [email or web address] AcuNav 8 Fr ICE catheter
[ ]Other: [ ]
Intracardiac ultrasound (ICE) was carefully advanced into the right atrium to guide sheath placement over a J-wire, catheter placement, guide trans-septal puncture, identify potential complications, identify anatomic structures and ensure proper
contact between ablation catheter and tissue.
A multipolar catheter were advanced to the coronary sinus. A mapping / ablation catheter was used to record and pace. Intracardiac ultrasound (ICE) was utilized for structural assessment and monitoring. Tachycardia was characterized by
activation patterns in the CS catheters. Entrainment maneuvers established cavotricuspid isthmus-dependence.
Three-dimensional electroanatomic mapping was utilized. Catheter ablation in the right atrium was performed as described below. The patient�s atrial flutter terminated during ablation. Ablation continued until a line was complete from the
tricuspid valve annulus to the IVC-RA junction. Clockwise and counterclockwise trans-isthmus times were determined, and RA activation patterns confirmed bidirectional block.
Next, we turned out attention to the PVI.
Heparin was given prior to trans-septal puncture. Heparin was given to achieve and maintain a target ACT of 300-400 seconds.
Trans-septal access was performed under ICE guidance. The trans-septal puncture was performed with a SafeSept wire through a Brockenbrough needle assembly. The wire was visualized as it entered the LSPV. The Brockenbrough needle assembly, SafeSept
wire and sheath dilator were removed under negative pressure. The Protrack pigtail wire was advanced through the sheath into the left atrium with position confirmed on ICE and fluoroscopy. The steerable long sheath was exchanged from the Cryo
FlexSheath steerable sheath over the Protrack wire and was advanced into the LA and positioned at the mitral annulus.
ICE and 3D mapping was performed to identify relevant cardiac structures. A careful 3D map was created to assess for regions of low-voltage and abnormal electrogram signals. Additional mapping was performed as outlined below. See synopsis for
details.
Cryoballoon ablation was performed using freeze/thaw/freeze at 2-4 minute intervals. Ablation targets included Cryoballoon temperatures of -30 degrees @ 30 seconds with goal temp typically between -40 and -50 degrees Celsius with time to effect when
measurable recorded to guide duration of application and need for repeat ablation in each vein. Esophageal temperature monitored throughout intervention. Phrenic nerve pacing performed during cryoapplication in the right pulmonary veins to monitor
for any evidence of PNI requiring application termination. See synopsis and procedure log for details.
Catheter and sheath were removed from the left atrium and post-ablation intracardiac echo evaluation was consistent with pre-ablation with no changes and no pericardial effusion and there is no left atrial thrombus or left ventricle thrombus seen.
Electrophysiology study was performed. Hemostasis was obtained with figure of 8 stitch for each groin with manual pressure. Protamine was used for reversal.
Estimated Blood Loss
5-10 mL
Complications
None
Procedure Synopsis:
The patient entered the room in atrial flutter.
With regards to the atrial flutter, utilizing electroanatomic three-dimensional navigation, a 3.5 mm tip Tacticath SE irrigated ablation catheter was advanced to the right atrium with the assistance of an 11.5 Fr Agilis steerable long sheath. An
electroanatomic three-dimensional map of the right atrium was constructed, with careful attention to anatomic landmarks, including the coronary sinus, IVC-RA and SVC-RA junction, tricuspid valve annulus, and region of the His bundle electrogram. An
ablation line was created from the tricuspid annulus to the IVC in the 6:00 position (SAMI clock). Power was titrated between 30 and 40 Myers. The patient�s atrial flutter terminated during ablation, with resumption of NSR. The line was completed
during CS pacing, and bidirectional block was achieved. The ablation line was mapped to ensure widely spaced double potentials, and after a 20 minute waiting period, bidirectional block persisted.
With regard to the AF, three-dimensional mapping with EnSite system was performed with reconstruction of left atrium utilizing Achieve catheter. Intracardiac ultrasound and EnSite was used for guidance of ablation and placement of the Cryoballoon.
PV seal was confirmed with pressure waveform and ICE. Using the Achieve catheter, it was confirmed that pulmonary veins were active. All pulmonary veins were isolated successfully using Cryoballoon ablation using freeze/thaw/freeze cycles at
2-4-minute intervals, with good [id number] of isolation. Segmentation ablation was performed to the right superior pulmonary vein to assist after final isolation. During the right-sided PV ablation, phrenic nerve pacing was performed to assess
the phrenic nerve strength and the phrenic nerve was intact throughout the right-sided ablation. Pre- and post-pulmonary vein recording and pacing from the Achieve catheter was utilized to ensure complete pulmonary vein isolation. LA voltage map
created at procedure conclusion confirming WACA of bilateral PVs.
Fluoroscopy: 27.5 minutes; 65.4 mGy; DAP 9.78
Contrast used: 0 cc
Baseline Intervals:
Rhythm: AFL, TCL 310 ms
Post-Procedure Intervals:
APaced, VPaced
ID: 154 ms
QRS: 196 ms
QT: 556 ms
QTc: 594 ms
A-A: 880 ms
R-R: 880 ms
Conclusions:
- Typical, counterclockwise atrial flutter. Isthmus-dependence was established with entrainment.
- Successful ablation of the cavotricuspid isthmus with bidirectional block.
- Successful pulmonary vein isolation using cryoballoon
- 3-D Electroanatomical Mapping
- Intracardiac Ultrasound
- Ultrasound Guidance for Vascular Access.
Recommendations
- Bedrest with straight-leg precautions as ordered
- Anticipate same day discharge if patient meeting clinical metrics
- Resume home medications as indicated
- Continue amiodarone for 3 mo, can consider reduction at that time
- Ok to resume anticoagulation tonight if patient and groin sites stable
- PPI daily for 30 days
- Plan for follow-up in office in 4-6 weeks
Lex Avina,
Clinical Cardiac Wheel Fitter
cc: Jessica Donis MD; Dylan Hurst MD
[2023-09-25] MEDS: TYLENOL 650 MG PO (14:21)
--- NOTE | 2023-09-25 17:04 | W.PN.UPDATE ---
Update Note
Progress Note Update
PT seen post PVI. Bilat groin sites without ht/bleeding. OOB ambulating. Post EKG AV paced 70, no acute changes. Resume eliquis tonight. Pt tired post procedure and somewhat emotional from some relief from stress burden, but is ready to go home
today. She has followup with Dr. Donis as scheduled. Home later today if groin sites/tele remain stable.
== END 2023-09-25 17:30 | disposition home or self-care (01) ==
LOC: CATH 06:07
PROVIDERS: ATTENDING PHYSICIAN Internal Medicine Cardiovascular Disease; FAMILY PHYSICIAN Family Medicine; OTHER PHYSICIAN Internal Medicine Interventional Cardiology
DX: I48.0 Paroxysmal atrial fibrillation (principal); I35.0 Nonrheumatic aortic (valve) stenosis; Z95.3 Presence of xenogenic heart valve; Z87.891 Personal history of nicotine dependence; I25.10 Atherosclerotic heart disease of native coronary artery without angina pectoris; Z95.1 Presence of aortocoronary bypass graft; E78.5 Hyperlipidemia, unspecified; I50.32 Chronic diastolic (congestive) heart failure; I11.0 Hypertensive heart disease with heart failure; I48.92 Unspecified atrial flutter; I48.3 Typical atrial flutter; I45.10 Unspecified right bundle-branch block
CPT/HCPCS: 93655; C1766; C1894; C1730; C1893; C2630; C1733; C1759; 76937; 85347; 93005; 93656

== ENCOUNTER → 2023-12-02 08:01 | Outpatient (REF) | payer MEDICARE, SELFPAY | LOC: RAD 08:01 | PROVIDERS: ATTENDING PHYSICIAN Physician Assistant; FAMILY PHYSICIAN Family Medicine | DX: I65.23 Occlusion and stenosis of bilateral carotid arteries (principal) | CPT/HCPCS: 93880 ==

== ENCOUNTER → 2024-05-14 15:47 | Outpatient (REF) | payer MEDICARE, SELFPAY | LOC: RCS 15:47 | PROVIDERS: ATTENDING PHYSICIAN Internal Medicine Interventional Cardiology; FAMILY PHYSICIAN Family Medicine | DX: Z95.2 Presence of prosthetic heart valve (principal) | CPT/HCPCS: 93306 ==

== ENCOUNTER → 2024-07-14 08:53 | Outpatient (REF) | payer MEDICARE, SELFPAY ==
[2024-07-14 09:56] LABS: % Basophils 0.9 % (0-2); % Immature Granulocytes 0.4 % (0-0.5); % Lymphocytes 30.8 % (20.5-51.1); % Monocytes 14.8 % (1.7-9.3); % Neutrophils 47.1 % (42.2-75.2); Absolute Basophils 0.1 10^3/uL (0-0.2); Absolute Eosinophils 0.3 10^3/uL (0-0.7); Absolute Lymphocytes 1.7 10^3/uL (1.2-3.4); Absolute Monocytes 0.8 10^3/uL (0.1-0.6); Absolute Neutrophils 2.5 10^3/uL (1.4-6.5); Hematocrit 45.7 % (37.0-47.0); Hemoglobin 15.1 g/dL (12.0-16.0); Mean Corpuscular Hgb 31.7 pg (27.0-31.0); Mean Platelet Volume 10.3 fL (7.4-10.4); Nucleated Red Blood Cells % 0 %; Platelet Count 136 10^3/uL (130-400); Red Blood Cell Count 4.76 10^6/uL (4.20-5.40); Red Cell Dist. Width 15.2 % (11.5-14.5); White Blood Cell Count 5.4 10^3/uL (4.8-10.8)
[2024-07-14 10:13] LABS: Glycohemoglobin (HgbA1c) 5.4 % (4.0-5.6)
[2024-07-14 11:29] LABS: TSH Reflex To Free T4 1.28 uIU/ml (0.47-4.68)
[2024-07-14 17:16] LABS: ALT (SGPT) 28 U/L (0-35); AST (SGOT) 39 U/L (14-36); Albumin 4.5 g/dl (3.5-5.0); Alkaline Phosphatase 90 U/L (38-126); Blood Urea Nitrogen 40 mg/dl (7-17); Calcium 9.7 mg/dl (8.4-10.2); Carbon Dioxide 32 mmol/L (22-30); Chloride 98 mmol/L (98-107); Glucose 96 mg/dl (70-99); HDL Cholesterol 56 mg/dl; LDL Cholesterol, Calculated 118 mg/dl; Sodium 139 mmol/L (135-145); Total Cholesterol 188 mg/dl (50-199); Total Protein 7.1 g/dl (6.3-8.2); Triglyceride 74 mg/dl (10-149); Very Low Density Lipoprotein 14 mg/dl (0-30); eGFR 42.09
== END ==
LOC: REG 08:53
PROVIDERS: ATTENDING PHYSICIAN Nurse Practitioner; FAMILY PHYSICIAN Family Medicine
DX: I48.0 Paroxysmal atrial fibrillation (principal); I48.92 Unspecified atrial flutter; I10 Essential (primary) hypertension; E78.2 Mixed hyperlipidemia; Z95.2 Presence of prosthetic heart valve; Z95.1 Presence of aortocoronary bypass graft; I45.10 Unspecified right bundle-branch block; Z95.0 Presence of cardiac pacemaker; R73.03 Prediabetes
CPT/HCPCS: 36415; 80053; 80061; 83036; 84443; 85025

== ENCOUNTER 2024-07-23 06:57 | Day surgery (SDC) | payer MEDICARE, SELFPAY ==
[2024-07-23 07:32] VITALS: BMI 27.9
== END 2024-07-23 09:15 | disposition home or self-care (01) ==
LOC: CATH 06:57
PROVIDERS: ATTENDING PHYSICIAN Internal Medicine Cardiovascular Disease; FAMILY PHYSICIAN Family Medicine; OTHER PHYSICIAN Internal Medicine
DX: I08.3 Combined rheumatic disorders of mitral, aortic and tricuspid valves (principal); I08.8 Other rheumatic multiple valve diseases; I31.39 Other pericardial effusion (noninflammatory)
CPT/HCPCS: 93312; 93320; 93325

== ENCOUNTER 2024-08-10 13:21 | Inpatient (IN) | payer MEDICARE, SELFPAY ==
[2024-08-10] VITALS (10 sets, daily range): BP systolic 107–140; BP diastolic 35–53; BMI 29.3; BMI 29.2
--- NOTE | 2024-08-10 09:25 | ED.GENMED ---
History of Present Illness
<JOANNE King - Last Filed: 08/10/24 11:41>
General
Chief Complaint: Skin Problem
Source: patient
Exam Limitations: none
Time Seen by Provider: 08/10/24 09:14
Nursing documentation reviewed up to this point in time: agreed with
History of Present Illness
History of Present Illness:
Patient is a 78-year-old female with past medical history of pacemaker, A-fib CHF hypertension, aortic valve replacement presents to the ER for evaluation of worsening redness and pain to right ankle foot area. Patient started with redness to the
right ankle 2 weeks ago. She thinks in the middle the night her 's toenail may have scraped her right ankle area. She was seen by urgent care 5 days ago and started on Keflex however complains of increasing pain to the area along with
increasing redness. She denies any actual fever or chills.
Past History
<JOANNE King - Last Filed: 08/10/24 11:41>
Past History
ED Past Medical History: Arrthythmia, CAD, CHF, HTN and Other (Psoriasis)
ED Past Surgical History: Cardiac (Aortic valve replacement, CABG) and Orthopedic (Knee replacement)
Social History
Tobacco: Non-smoker
Alcohol: None
Drug: None
Personal:
Living: with family
Employment: Retired
Family History
Family History: Negative Early CAD
Review of Systems
<JOANNE King - Last Filed: 08/10/24 11:41>
Review of Systems
Allergies reviewed?: Yes
All Other Systems: ROS reviewed and negative except as documented in HPI and ROS
Constitutional: Reports no symptoms; Denies fever, fatigue or chills
Respiratory: Reports no symptoms
Cardiac: Reports no symptoms
Musculoskeletal: Reports other (increasing pain to right ankle )
Skin: Reports no symptoms and other (redness to right ankle )
Psychiatric: Reports no symptoms
Phy Exam
<JOANNE King - Last Filed: 08/10/24 11:41>
General Physical Exam
General Presentation: no apparent distress
General age: appears stated age
General Skin: warm and dry
General Habitus: normal
General Mental: alert
General Hydration: appears well hydrated
Neurological Exam
Neurological Exam: alert and oriented x3
Musculoskeletal Exam
Musculoskeletal Exam: full ROM and other (rle with strong pulses + redness to right ankle with tenderness to right lateral ankle region + tenderness over ankle ; mid swelling to right ankle no swelling to calf)
Skin Exam
Skin Exam: normal color and warm/dry
Psychiatric Exam
Psychiatric Exam: normal mood/affect
Course
<JOANNE King - Last Filed: 08/10/24 11:41>
Orders/Labs/Results
Orders:
Orders
08/10/24 10:42
IV Insert/Care/Rem.- Treatment PRN
08/10/24 10:46
IV Insert/Care/Rem.- Treatment PRN
08/10/24 10:47
Ketorolac [Toradol] 15 mg IV NOW STA
08/10/24 11:01
Vancomycin [Vancocin] 2,000 mg 0.9% Sodium Chloride 500 ml [Nss] 500 ml IV NOW
08/10/24 11:07
Complete Blood Count/With Diff Urgent
Comprehensive Metabolic Panel Urgent
Abnormal Lab Results
08/10/24
11:07
MCH 32.8 H pg
(27.0-31.0)
RDW 15.7 H %
(11.5-14.5)
Plt Count 119 L 10^3/uL
(130-400)
MPV 10.5 H fL
(7.4-10.4)
Absolute Monos (auto) 0.7 H 10^3/uL
(0.1-0.6)
Monocytes % 13.0 H %
(1.7-9.3)
Carbon Dioxide 31 H mmol/L
(22-30)
BUN 33 H mg/dl
(7-17)
Glucose 105 H mg/dl
(70-99)
08/10/24 11:07
08/10/24 11:07
Vital Signs
Initial and Last Documented VS:
Initial Vital Signs
Temp Pulse Resp BP Pulse Ox
97.8 F 80 18 129/49 93
08/10/24 08:38 08/10/24 08:38 08/10/24 08:38 08/10/24 08:38 08/10/24 08:38
Last Documented Vital Signs
Temp Pulse Resp BP Pulse Ox
97.8 F 80 16 120/53 96
08/10/24 08:38 08/10/24 11:11 08/10/24 11:11 08/10/24 11:11 08/10/24 11:11
Electric Blanket Wirer consulted with Physician
Electric Blanket Wirer consulted with physician?: Yes
Name of Physician Consulted: shaina
<Pramod Morgan, DO - Last Filed: 08/10/24 10:54>
Orders/Labs/Results
Orders:
Orders
08/10/24 10:42
IV Insert/Care/Rem.- Treatment PRN
08/10/24 10:46
IV Insert/Care/Rem.- Treatment PRN
08/10/24 10:47
Ketorolac [Toradol] 15 mg IV NOW STA
08/10/24 11:01
Vancomycin [Vancocin] 2,000 mg 0.9% Sodium Chloride 500 ml [Nss] 500 ml IV NOW
08/10/24 11:07
Complete Blood Count/With Diff Urgent
Comprehensive Metabolic Panel Urgent
Abnormal Lab Results
08/10/24
11:07
MCH 32.8 H pg
(27.0-31.0)
RDW 15.7 H %
(11.5-14.5)
Plt Count 119 L 10^3/uL
(130-400)
MPV 10.5 H fL
(7.4-10.4)
Absolute Monos (auto) 0.7 H 10^3/uL
(0.1-0.6)
Monocytes % 13.0 H %
(1.7-9.3)
Carbon Dioxide 31 H mmol/L
(22-30)
BUN 33 H mg/dl
(7-17)
Glucose 105 H mg/dl
(70-99)
08/10/24 11:07
08/10/24 11:07
Vital Signs
Initial and Last Documented VS:
Initial Vital Signs
Temp Pulse Resp BP Pulse Ox
97.8 F 80 18 129/49 93
08/10/24 08:38 08/10/24 08:38 08/10/24 08:38 08/10/24 08:38 08/10/24 08:38
Last Documented Vital Signs
Temp Pulse Resp BP Pulse Ox
97.8 F 80 16 120/53 96
08/10/24 08:38 08/10/24 11:11 08/10/24 11:11 08/10/24 11:11 08/10/24 11:11
<JOANNE King - Last Filed: 08/10/24 11:41>
MDM/Problems Addressed
Differential Diagnosis Includes:
Not limited to failed outpatient therapy/cellulitis
MDM/Problems Addressed:
Patient with cellulitis to right ankle foot despite being on Augmentin for the past 5 days complaining of increasing pain/redness. She is afebrile in no acute distress will check labs however will recommend admission for failure of antibiotics IV
antibiotics ordered. Patient complaining of some discomfort IV Toradol given. Patient used to be on Eliquis however is no longer.
Patient is nontoxic normal white count however with increasing symptoms admission still recommended.
<JOANNE King - Last Filed: 08/10/24 11:41>
*Critical Care Note
Total Time (30-74mins, 75-104mins- exclusive of procedures): Not Applicable
ED Attending Note
<JOANNE King - Last Filed: 08/10/24 11:41>
-
Portions of this chart may have been created with voice recognition software.� Occasional wrong word or��sound alike� substitutions may have occurred due to the inherent limitations of voice recognition software.
<Pramod Morgan DO - Last Filed: 08/10/24 10:54>
ED Attending Note
Patient seen and examined by attending physician: Yes
I performed the substantive portion of visit, reviewed & personally made and approve the management plan that is documented in note by myself or ALFREDO.: Yes
ED Attending Note:
I have seen and evaluated the patient with a [id number] encounter. I have spoken to the advance practicer provider and involved in the medical history, the physical exam, medical decision making.
Evaluation and management service: agree unless noted differently below.
Results interpretation: agree unless noted differently below.
Focused HPI: 78-year-old female presenting for evaluation of persistent cellulitis to her right ankle. Patient has been dealing with this for 2 weeks. She has been placed on Keflex but symptoms are worsening
Physical exam: Cellulitic changes noted to right ankle. Distal extremity neurovascularly intact
Medical Decision Making: Given failure of outpatient antibiotics, will start IV antibiotics and admit
Discharge Plan
Departure
Prescriptions:
No Action
atorvastatin 80 mg Tablet
80 mg PO HS
metoprolol succinate 50 mg Tablet Extended Release 24 Hr
50 mg PO BID
Eliquis 5 mg Tablet
5 mg PO BID
Jardiance 10 mg Tablet
10 mg PO DAILY
furosemide [Lasix] 40 mg tablet
40 mg PO DAILY Qty: 30 0RF
ergocalciferol (vitamin D2) 1,000 unit Capsule
2,000 unit PO DAILY
escitalopram oxalate [Lexapro] 20 mg Tablet
20 mg PO DAILY
valsartan 80 mg tablet
40 mg PO BID
Vitamin [id number] Tablet
1 tab PO DAILY
Calcium 600 Mg + Vitamin D 800 Mcg
1 tab PO DAILY
Referrals:
Dylan Hurst MD [Family Provider] -
Interventions
Interventions:
*Risk Screen - Suicide Last Done: 08/10/24 08:38
*General Assessment Last Done: 08/10/24 09:49
*Neglect/Abuse Screening Last Done: 08/10/24 08:38
*ED- Fall Risk Assessment Last Done: 08/10/24 09:49
*ED COVID-19 Vaccine History Last Done: 08/10/24 09:49
ED-Skin Assessment Last Done: 08/10/24 09:47
Discharge Date and Time
Print Language: LAO
--- NOTE | 2024-08-10 10:44 | EDRN ---
Dr. Morgan in to see pt. Rizwan Arrieta SOCIAL SERVICE TECHNICIAN was in prior to see pt.
--- NOTE | 2024-08-10 10:58 | EDRN ---
Pharmacy called to mix and tube the vancomycin.
[2024-08-10] MEDS: TORADOL 15 MG IV (11:27)
[2024-08-10 11:29] LABS: % Basophils 0.9 % (0-2); % Eosinophils 4.1 % (0-6); % Immature Granulocytes 0.4 % (0-0.5); % Neutrophils 58.6 % (42.2-75.2); Absolute Basophils 0.1 10^3/uL (0-0.2); Absolute Eosinophils 0.2 10^3/uL (0-0.7); Absolute Lymphocytes 1.2 10^3/uL (1.2-3.4); Absolute Monocytes 0.7 10^3/uL (0.1-0.6); Absolute Neutrophils 3.1 10^3/uL (1.4-6.5); Hemoglobin 14.4 g/dL (12.0-16.0); Mean Corp Hgb Conc. 33.5 g/dL (33.0-37.0); Mean Corpuscular Hgb 32.8 pg (27.0-31.0); Mean Corpuscular Volume 97.9 fL (81.0-99.0); Mean Platelet Volume 10.5 fL (7.4-10.4); Nucleated Red Blood Cells % 0 %; Platelet Count 119 10^3/uL (130-400); Red Blood Cell Count 4.39 10^6/uL (4.20-5.40); Red Cell Dist. Width 15.7 % (11.5-14.5); White Blood Cell Count 5.3 10^3/uL (4.8-10.8)
[2024-08-10 11:32] LABS: ALT (SGPT) 24 U/L (0-35); AST (SGOT) 32 U/L (14-36); Albumin 4.4 g/dl (3.5-5.0); Alkaline Phosphatase 97 U/L (38-126); Blood Urea Nitrogen 33 mg/dl (7-17); Calcium 9.5 mg/dl (8.4-10.2); Carbon Dioxide 31 mmol/L (22-30); Chloride 103 mmol/L (98-107); Estimated Creatinine Clearance 74 ml/min; Glucose 105 mg/dl (70-99); Sodium 138 mmol/L (135-145); Total Bilirubin 1.1 mg/dl (0.2-1.3); eGFR > 60.00
[2024-08-10] MEDS: VANCOCIN 540 MG IV (11:36)
--- NOTE | 2024-08-10 11:43 | EDRN ---
Pt is eating boxed lunch at this time. Rizwan Arrieta NP said pt can eat.
--- NOTE | 2024-08-10 11:48 | WOUNDNOTE ---
WOund/Skin care note: pt identified by name and
R lateral ankle
Top of R ankle
Medial R ankle
--- NOTE | 2024-08-10 12:10 | EDRN ---
Dr. Garcia in room w/ pt at this time.
--- NOTE | 2024-08-10 12:26 | CM ---
Patient seen at bedside with physician in ED. Patient states she lives with her in a one story home. Patient PCP is Dr. Hurst and she uses the [facility] in [place]. Patient stated that she was independent of ADL's and IADL's. Patient has no DME
at home. Patient plan is home with no needs. CM will continue to follow for discharge planning needs.
Plan; home with no needs anticipated
--- NOTE | 2024-08-10 12:28 | HPS.HSE ---
Family Physician
-
Family Physician: Dylan Hurst
Chief Complaint
-
right ankle cellulitis
History of Present Illness
Patient is a 78-year-old female who 2 weeks ago saw her primary care physician for right heel and ankle pain along with redness. She thought perhaps she had a foreign body in it and an x-ray was negative. She did not receive antibiotics at that
time. 1 week ago, patient went to urgent care since the right ankle area was worse. She describes it is more red, more swollen, increased pain and Keflex 500 mg every 6 hours for 7 days was prescribed. Patient feels that the ankle area is no
better despite being on 5 days of oral Keflex. She denies any fevers or chills. Patient will be admitted for failed outpatient antibiotic therapy.
Medical History
Past Medical History
Past Medical History: Reports Other
Additional Past Medical History:
Paroxysmal atrial fibrillation
essential hypertension
coronary artery disease
Anxiety/depression
B12 deficiency
Carotid artery stenosis
coronary artery disease status post quadruple bypass and aortic valve replacement now with leaky valve (moderate to severe aortic regurgitation, mild to moderate tricuspid regurgitation)
History of congestive heart failure with mildly reduced ejection fraction
Past Surgical History: Reports Other
Additional Past Surgical History:
CABG with aortic valve replacement
Pacemaker placement
Social History
Tobacco: Non-smoker
Alcohol: Daily (1 cocktail nightly with her )
Drug: None
Personal:
Living: With Family
Family History
Family History: Other (Father of an [place] at age 52, mother of colon cancer, sister of brain cancer)
Allergies / Home Medications
Allergies reflects when Allergies were last updated in [employer]
Home Medications with original date entered in [employer]
Allergy/Medication List:
Allergies
Allergy/AdvReac Type Severity Reaction Status Date / Time
No Known Allergies Allergy Verified 03/10/25 08:38
Home Medications
apixaban 5 mg tablet (Eliquis) 5 mg PO NOON Blood Clot Prevention/Tx 02/02/23
atorvastatin 80 mg tablet 80 mg PO HS High Cholesterol 02/02/23
metoprolol succinate 50 mg tablet,extended release 24 hr 50 mg PO BID Blood Pressure 02/02/23
empagliflozin 10 mg tablet (Jardiance) 10 mg PO DAILY Diabetes 04/01/23
furosemide 40 mg tablet (Lasix) 40 mg PO DAILY Heart disease/condition #30 tabs 07/17/23
escitalopram oxalate 20 mg tablet (Lexapro) 20 mg PO DAILY 09/25/23
valsartan 80 mg tablet 40 mg PO BID Blood pressure 09/25/23
Calcium 600 Mg + Vitamin D 800 Mcg 1 tab PO DAILY 07/23/24
cephalexin 500 mg capsule 1 mg Q6H 08/10/24
cyanocobalamin (vitamin B-12) 100 mcg tablet 100 mcg PO DAILY 08/10/24
ergocalciferol (vitamin D2) 50 mcg (2,000 unit) tablet 50 mcg PO DAILY 08/10/24
ibuprofen 200 mg tablet 400 mg PO Q6HPRN PRN mild pain 08/10/24
triamcinolone acetonide 0.1 % topical cream 1 applic topical DAILY 08/10/24
Review of Systems
-
History Source: Patient and Family
A 12 point ROS was completed and negative except as noted: Yes
Constitutional: Denies Fever or Chills
EENT: Reports No Symptoms
Respiratory: Reports No Symptoms
Cardiac: Reports No Symptoms
Abdomen/GI: Reports No Symptoms
: Reports No Symptoms
Musculoskeletal: Reports No Symptoms
Skin: Reports See HPI
Neurological: Reports No Symptoms
Endocrine: Reports No Symptoms
Hematologic/Lymphatic: Reports No Symptoms
Psych: Reports No Symptoms
Physical Exam
Vital Signs
Vital Signs
Temp Pulse Resp BP Pulse Ox
97.8 F 80 16 120/53 96
08/10/24 08:38 08/10/24 11:11 08/10/24 11:11 08/10/24 11:11 08/10/24 11:11
Physical Exam
General: Well Developed, Well Nourished and No Apparent Distress
HEENT: NormoCephalic and Anicteric; No Oxygen
Respiratory: Clear; No Wheezes, Rales, Rhonchi or Crackles
Cardiac: S1/S2, Regular Rhythm and Murmur (Has both systolic and diastolic murmurs present)
GI: Soft, Non Tender, Non Distended and Normal Bowel Sounds
Musculoskeletal: No Clubbing, No Cyanosis and No Edema
Skin: Other (On right lateral malleolus area there is a small scratch which is clean dry and intact--surrounding redness outlined by marker which appears improved--is not warm to touch)
Neuro: Awake and Alert
Psych: Calm
Laboratory Results
-
08/10/24 11:07
08/10/24 11:07
Laboratory Results
Total Bilirubin 1.1 mg/dl (0.2-1.3) 08/10/24 11:07
AST 32 U/L (14-36) 08/10/24 11:07
ALT 24 U/L (0-35) 08/10/24 11:07
Alkaline Phosphatase 97 U/L (38-126) 08/10/24 11:07
Impression/Plan
-
Patient is a 78-year-old female
Failed outpatient antibiotic cellulitis of right ankle--patient already receiving IV vancomycin in ED will continue--if improved, would discharge on doxycycline as opposed to continuing the Keflex--if worsens on IV Vanco would consult ID--given
abnormalities of the valves, would check blood cultures to make sure no bacteremia
Moderate to severe aortic regurgitation--in already replaced aortic valve--patient has upcoming appointment with cardiology (Dr. Donis) this coming Saturday
Paroxysmal atrial fibrillation--patient is only on Eliquis daily--continue for now
Heart failure with mildly reduced ejection fraction--no acute exacerbation--continue Jardiance, atorvastatin, Lasix, valsartan
Vitamin B12 deficiency--continue B12 supplements
Vitamin D deficiency--continue vitamin D supplements
DVT prophylaxis--Eliquis
CODE STATUS--full code
--- NOTE | 2024-08-10 13:43 | EDRN ---
No Delay Nurse report sent to 4th floor W for M/S bed 437.1 at this time w/ call placed to floor and message left for RN who will care for pt. Bed status 'IN PROGRESS' at this time.
--- NOTE | 2024-08-10 13:53 | PHA.VAN.IN ---
Assessment
- Assessment
Renal Function: Appears similar to baseline (SCR similar to baseline, BUN may be slightly elevated)
AUC Dosing Plan
- Dosing Variables
Dosing Weight (kg): 95
Dosing CrCl (ml/min): 74
Vd coefficient (L/kg): 0.7
- Empiric Dosing
Initial / Loading Dose: 2000mg - 08/10 11:36
Maintenance Regimen: Vanc 1000mg Q12H starting 08/11 0600
Estimated AUC (mcg*h/mL): 472
Estimated Peak (mcg*h/mL): 27.5
Estimated Trough (mcg/ml): 13.4
Estimated Half Life (H): 10.5
- Monitoring
No levels ordered at this time: consider levels in next few days; follow renal function
Pharmacokinetics Vancomycin I
- -
Patient Age: 78
Patient Sex: Female
Vancomycin Day #: 1
Indication: Skin And Soft Tissue
Requesting Provider: Dr. Burch
Pertinent Antimicrobial Allergies:
NKDA
Height / Weight:
Height 5 ft 11 in
Actual Weight 95.2 kg
- Vital Signs / Lab Results
Temp Pulse Resp BP Pulse Ox
97.8 F 80 16 120/53 96
08/10/24 08:38 08/10/24 11:11 08/10/24 11:11 08/10/24 11:11 08/10/24 11:11
Lab Results - Hematology
08/10/24
11:07
WBC 5.3
Lab Results - Chemistry
08/10/24
11:07
BUN 33 H
Creatinine 0.8
Estimated Creat Clear 74
Albumin 4.4
[2024-08-10] MEDS: ELIQUIS 5 MG PO (13:58)
[2024-08-10] MEDS: DIOVAN 40 MG PO (20:58)
[2024-08-10] MEDS: TOPROL XL 50 MG PO (20:59)
[2024-08-10] MEDS: LIPITOR 80 MG PO (20:59)
[2024-08-11 05:19] VITALS: BMI 29.0
[2024-08-11] MEDS: VANCOCIN 200 IV ×2 (05:20→18:25)
[2024-08-11 07:00] VITALS: BP 124/41
[2024-08-11 07:44] LABS: Hemoglobin 13.2 g/dL (12.0-16.0); Mean Corp Hgb Conc. 32.2 g/dL (33.0-37.0); Mean Corpuscular Volume 99.5 fL (81.0-99.0); Mean Platelet Volume 10.5 fL (7.4-10.4); Platelet Count 109 10^3/uL (130-400); Red Blood Cell Count 4.12 10^6/uL (4.20-5.40); Red Cell Dist. Width 15.7 % (11.5-14.5); White Blood Cell Count 5.1 10^3/uL (4.8-10.8)
[2024-08-11 08:43] LABS: Blood Urea Nitrogen 24 mg/dl (7-17); Calcium 9.2 mg/dl (8.4-10.2); Carbon Dioxide 28 mmol/L (22-30); Chloride 105 mmol/L (98-107); Estimated Creatinine Clearance 73 ml/min; Glucose 92 mg/dl (70-99); Potassium 4.7 mmol/L (3.5-5.1); Sodium 138 mmol/L (135-145); eGFR > 60.00
[2024-08-11] MEDS: FARXIGA 10 MG PO (09:20)
[2024-08-11] MEDS: VITAMIN B-12 100 MCG PO (09:20)
[2024-08-11] MEDS: DIOVAN 40 MG PO (09:20)
[2024-08-11] MEDS: LASIX 40 MG PO (09:21)
[2024-08-11] MEDS: OSCAL 500 + D 500 MG PO (09:21)
[2024-08-11] MEDS: TOPROL XL 50 MG PO ×2 (09:21→20:32)
[2024-08-11] MEDS: TRIAMCINOLONE ACETONIDE 0.1% CREAM 1 APPLIC TOPICAL (09:22)
[2024-08-11] MEDS: LEXAPRO 20 MG PO (09:22)
--- NOTE | 2024-08-11 09:22 | PHA.VAN.FU ---
Vancomycin Assessment / Plan
- Assessment
Renal Function: Stable
WBC's are: WNL
In the past 24 hrs, patient has been: Afebrile
- Dosing Plan
Continue: Vanc 1000mg Q12H
- Monitoring Plan
No level(s) ordered at this time: consider levels in next few days
- Follow Up
Pharmacy will continue to follow.
Vancomycin Follow UP
- -
Patient Age: 78
Patient Sex: Female
Vancomycin Day #: 2
Indication: Skin And Soft Tissue
Requesting Provider: Dr. Burch
Pertinent Antimicrobial Allergies:
NKDA
Height / Weight:
Height 5 ft 11 in
Actual Weight 94.347 kg
- Vital Signs / Lab Results
Temp Pulse Resp BP Pulse Ox
98.2 F 72 18 124/41 98
08/11/24 07:00 08/11/24 07:00 08/11/24 07:00 08/11/24 07:00 08/11/24 07:00
Lab Results - Hematology
08/10/24 08/11/24
11:07 07:02
WBC 5.3 5.1
Lab Results - Chemistry
08/10/24 08/11/24
11:07 07:32
BUN 33 H 24 H
Creatinine 0.8 0.8
Estimated Creat Clear 74 73
Albumin 4.4
[2024-08-11 09:27] LABS: Hepatitis C Antibody Negative (Negative)
[2024-08-11] MEDS: ELIQUIS 5 MG PO (12:03)
[2024-08-11] MEDS: VITAMIN D3 (cholecalciferol) 50 MCG PO (14:14)
--- NOTE | 2024-08-11 14:49 | W.PN.HOSP.TC ---
Today's Communication/Plan
-
vanco tonight
await blood culture
d/c in AM on doxycycline
Assessment / Plan
Assessment / Plan
Patient is a 78-year-old female
Failed outpatient antibiotic cellulitis of right ankle--patient already receiving IV vancomycin in ED will continue-- improved, would discharge on doxycycline --given abnormalities of the valves, would check blood cultures to make sure no bacteremia
Moderate to severe aortic regurgitation--in already replaced aortic valve--patient has upcoming appointment with cardiology (Dr. Donis) this coming Saturday
Paroxysmal atrial fibrillation--patient is only on Eliquis daily--continue for now
Heart failure with mildly reduced ejection fraction--no acute exacerbation--continue Jardiance, atorvastatin, Lasix, valsartan
Vitamin B12 deficiency--continue B12 supplements
Vitamin D deficiency--continue vitamin D supplements
DVT prophylaxis--Eliquis
CODE STATUS--full code
Anticipated Discharge: Within 24 hours
Subjective/Interval History
-
Date of Service: August 11, 2024
ankle looks better--no pain
Objective Data
-
Labs:
Laboratory Results
08/11/24 08/11/24
07:02 07:32
WBC 5.1
Hgb 13.2
Hct 41.0
Plt Count 109 L
Sodium 138
Potassium 4.7
Chloride 105
Carbon Dioxide 28
BUN 24 H
Creatinine 0.8
Glucose 92
Calcium 9.2
Vital Signs:
max temp for 24 hours
08/11/24
07:00
Temp 98.2 F
Vital Signs
Temp Pulse Resp BP Pulse Ox
98.2 F 72 18 124/41 98
08/11/24 07:00 08/11/24 07:00 08/11/24 07:00 08/11/24 07:00 08/11/24 07:00
I&O
08/10/24 08/11/24 08/12/24
06:59 06:59 06:59
Intake Total 480 / 480
Balance 480 / 480
Review of Systems
-
All other systems: Reviewed and negative
Physical Exam
-
General: Well Developed, Well Nourished and No Apparent Distress
HEENT: Normocephalic and Atraumatic
Respiratory: Clear to Auscultation; Negative Wheezes or Rhonchi
Cardiac: Regular Rhythm and S1/S2; Negative Murmur
GI: Soft, Nontender, Nondistended and Normal Bowel Sounds
Musculoskeletal: No Clubbing, No Cyanosis and No Edema
Skin: Other (right ankle much improved)
Neuro: Awake
[2024-08-11 15:00] VITALS: BP 123/52
--- NOTE | 2024-08-11 15:34 | WOUNDNOTE ---
R LATERAL ANKLE AND FOOT
--- NOTE | 2024-08-11 15:35 | WOUNDNOTE ---
RYAN RN note: Patient admitted with r ankle cellulitis.
See H&P for complete history.
PMH: From H&P report: Paroxysmal atrial fibrillation,essential hypertension,coronary artery disease
Anxiety/depression, B12 deficiency, Carotid artery stenosis
coronary artery disease status post quadruple bypass and aortic valve replacement now with leaky valve (moderate to severe aortic regurgitation, mild to moderate tricuspid regurgitation)
History of congestive heart failure with mildly reduced ejection fraction
Past Surgical History: CABG with aortic valve replacement, Pacemaker placement
Wound Location and type/assessment: Patient admitted with: R lateral ankle dried scab and resolving cellulitis surrounding area ,extending to medial foot. Patient reports she thinks her accidentally scratched her with his toe nail during
the night. 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 Skin on legs very dry, patient asking for recommendations regarding good skin cream. Patient states she uses triamcinolone cream (already
on order) for feet. Goes to a manager graphic for psoriasis issues. Heels and sacrum intact.
Appetite:Good.
Pressure redistribution devices in place: Accumax, is ad lambert.
Plan: Silicone foam applied to R ankle. Teaching done regarding skin care and to cover area until healed. Recommended to patient that if does not heal, follow up with manager graphic for a possible biopsy.
Will confirm orders with hospitalist and updated nurse. Updated care plan and will follow as needed.
Note to case management of equipment requested for discharge: None.
[2024-08-11 20:16] VITALS: BP 107/38
[2024-08-11] MEDS: DIOVAN PO (22:18)
[2024-08-11] MEDS: LIPITOR 80 MG PO (22:32)
[2024-08-11 22:38] VITALS: BP 121/49
--- NOTE | 2024-08-11 22:50 | PTCARENOTE ---
Patient due to received dose of Diovan 40mg and Toprol XL 50mg. Her BP is 107/38. HR 76. Contacted SUPERVISOR WELDING EQUIPMENT REPAIRER prior to administration. SUPERVISOR WELDING EQUIPMENT REPAIRER recommended to 'give metoprolol first. Then recheck bp in like 1or2 hrs. And we can decide on other.' Repeat BP 2 hrs
later was 121/49. Pt declined HS Valsartan dose.
[2024-08-12] MEDS: TYLENOL 650 MG PO ×2 (02:21→06:23)
[2024-08-12] MEDS: VANCOCIN 200 IV (05:42)
[2024-08-12 05:55] VITALS: BMI 27.8
[2024-08-12 07:30] VITALS: BP 110/43
[2024-08-12 07:41] LABS: Hematocrit 40.1 % (37.0-47.0); Hemoglobin 13.8 g/dL (12.0-16.0); Mean Corp Hgb Conc. 34.4 g/dL (33.0-37.0); Mean Corpuscular Volume 95.9 fL (81.0-99.0); Mean Platelet Volume 10.7 fL (7.4-10.4); Platelet Count 111 10^3/uL (130-400); Red Blood Cell Count 4.18 10^6/uL (4.20-5.40); Red Cell Dist. Width 15.3 % (11.5-14.5); White Blood Cell Count 5.7 10^3/uL (4.8-10.8)
[2024-08-12 08:14] LABS: Blood Urea Nitrogen 24 mg/dl (7-17); Calcium 9.4 mg/dl (8.4-10.2); Carbon Dioxide 26 mmol/L (22-30); Chloride 105 mmol/L (98-107); Estimated Creatinine Clearance 65 ml/min; Glucose 106 mg/dl (70-99); Magnesium 2.3 mg/dl (1.6-2.3); Potassium 4.3 mmol/L (3.5-5.1); Sodium 135 mmol/L (135-145); eGFR > 60.00
[2024-08-12] MEDS: DIOVAN 40 MG PO (08:31)
[2024-08-12] MEDS: OSCAL 500 + D 500 MG PO (08:31)
[2024-08-12] MEDS: LEXAPRO 20 MG PO (08:31)
[2024-08-12] MEDS: FARXIGA 10 MG PO (08:31)
[2024-08-12] MEDS: VITAMIN D3 (cholecalciferol) 50 MCG PO (08:31)
[2024-08-12] MEDS: VITAMIN B-12 100 MCG PO (08:32)
[2024-08-12] MEDS: TOPROL XL 50 MG PO (08:32)
[2024-08-12] MEDS: HYDROPHOR 1 APPLIC TOPICAL (08:32)
[2024-08-12] MEDS: LASIX 40 MG PO (08:32)
[2024-08-12] MEDS: TRIAMCINOLONE ACETONIDE 0.1% CREAM 1 APPLIC TOPICAL (08:50)
--- NOTE | 2024-08-12 09:18 | W.PN.HOSP.TC ---
Today's Communication/Plan
-
d/c
Assessment / Plan
Assessment / Plan
Patient is a 78-year-old female
Failed outpatient antibiotic cellulitis of right ankle--patient already receiving IV vancomycin in ED will continue-- improved, will discharge on doxycycline --given abnormalities of the valves, blood cultures neg
Moderate to severe aortic regurgitation--in already replaced aortic valve--patient has upcoming appointment with cardiology (Dr. Donis) this coming Saturday
Paroxysmal atrial fibrillation--patient is only on Eliquis daily--continue for now
Heart failure with mildly reduced ejection fraction--no acute exacerbation--continue Jardiance, atorvastatin, Lasix, valsartan
Vitamin B12 deficiency--continue B12 supplements
Vitamin D deficiency--continue vitamin D supplements
DVT prophylaxis--Eliquis
CODE STATUS--full code
Anticipated Discharge: Today
Subjective/Interval History
-
Date of Service: August 12, 2024
ready for d/c
Objective Data
-
Labs:
Laboratory Results
08/12/24
07:03
WBC 5.7
Hgb 13.8
Hct 40.1
Plt Count 111 L
Sodium 135
Potassium 4.3
Chloride 105
Carbon Dioxide 26
BUN 24 H
Creatinine 0.8
Glucose 106 H
Calcium 9.4
Vital Signs:
max temp for 24 hours
08/11/24
22:38
Temp 98.5 F
Vital Signs
Temp Pulse Resp BP Pulse Ox
97.3 F 79 20 110/49 95
08/12/24 07:30 08/12/24 08:31 08/12/24 07:30 08/12/24 08:32 08/12/24 07:30
I&O
08/11/24 08/12/24 08/13/24
06:59 06:59 06:59
Intake Total 480 / 480 0 / 0
Balance 480 / 480 0 / 0
Review of Systems
-
All other systems: Reviewed and negative
Physical Exam
-
General: Well Developed, Well Nourished and No Apparent Distress
HEENT: Normocephalic and Atraumatic
Respiratory: Clear to Auscultation; Negative Wheezes or Rhonchi
Cardiac: Regular Rhythm, S1/S2 and Murmur
GI: Soft, Nontender, Nondistended and Normal Bowel Sounds
Musculoskeletal: No Clubbing, No Cyanosis and No Edema
Skin: Other (right ankle/heel redness much improved)
Neuro: Awake and Alert
--- NOTE | 2024-08-13 06:49 | W.DCSUMMARY ---
Discharge Summary
Discharge Data
Date of Admission: 08/10/24
Date of Discharge: 08/12/24
-
Pending Results: No
Hospital Course
Primary care physician : Dylan Hurst
Principal Discharge diagnosis : Right ankle cellulitis with failed outpatient antibiotics
Chronic Discharge diagnosis : Moderate to severe aortic regurgitation, paroxysmal atrial fibrillation, congestive heart failure with mildly reduced ejection fraction, vitamin B12 deficiency, vitamin D deficiency
Hospital Course : Patient was a 78-year-old female who 2 weeks ago saw her primary care physician for right heel ankle pain along with redness. She thought perhaps she had a foreign body in it and an x-ray was negative. She did not receive
antibiotics at that time. 1 week prior to admission, the patient stated she went to urgent care since the right ankle area was worse. She described it as red, swollen, increased pain. Keflex was given every 6 hours for 7 days and she completed 5
days worth. She feels that the ankle area is no better. She denies fevers or chills. Patient was admitted.
Problem #1: Right ankle cellulitis due to failed outpatient antibiotics. Patient was admitted and started on IV vancomycin. Ankle improved. Blood cultures were obtained and were negative. She was discharged on doxycycline to complete her course.
Problem #2: All other medical issues. These include Moderate to severe aortic regurgitation, paroxysmal atrial fibrillation, congestive heart failure with mildly reduced ejection fraction, vitamin B12 deficiency, vitamin D deficiency. These
medical issues were stable during her hospitalization. Medications were continued as able.
Patient is stable for discharge home at this time. If there are any questions regarding this dictation or her hospital stay, please not hesitate to call. Our office number is [phone].
Discharge Plan
-
Patient Disposition: Home (Routine Discharge)
Discharge Diagnosis/Procedures: Right ankle cellulitis due to failed outpatient antibiotic, moderate to severe aortic regurgitation, paroxysmal atrial fibrillation, chronic heart failure with mildly reduced ejection fraction no exacerbation, vitamin
B12 deficiency, vitamin D deficiency
Condition: Good
Diet: As tolerated and Regular
Activity: As tolerated
Driving Restrictions: As prior to admission
Bathing Restrictions: None
Activity Restrictions/Additional Instructions:
Wound Care Instructions
R lateral ankle: clean with soap and water, dry dressing change q 2-3 days and prn soilage.
moisturize legs with mineral oil daily.
leg elevation when sitting
Follow up with earth science technician as scheduled.
Referrals:
Dylan Hurst MD [Family Provider] - in less than 1 week
Prescriptions:
New
acetaminophen 325 mg Tablet
650 mg PO Q4HPRN PRN (Reason: mild pain or temp > 100.4 F) Qty: 0 0RF
white petrolatum [Hydrophor] 42 % Ointment
1 applic topical DAILY Qty: 100 0RF
doxycycline hyclate 100 mg capsule
100 mg PO BID 7 Days Qty: 14 0RF
Continued
atorvastatin 80 mg Tablet
80 mg PO HS
metoprolol succinate 50 mg Tablet Extended Release 24 Hr
50 mg PO BID
Eliquis 5 mg Tablet
5 mg PO NOON
Jardiance 10 mg Tablet
10 mg PO DAILY
furosemide [Lasix] 40 mg tablet
40 mg PO DAILY Qty: 30 0RF
valsartan 80 mg tablet
40 mg PO BID
cyanocobalamin (vitamin B-12) 100 mcg Tablet
100 mcg PO DAILY Qty: 0 0RF
triamcinolone acetonide 0.1 % Cream
1 applic TOPICAL DAILY Qty: 0 0RF
Rx Instructions:
face,legs and feet
escitalopram oxalate [Lexapro] 20 mg Tablet
20 mg PO DAILY Qty: 0 0RF
ergocalciferol (vitamin D2) 50 mcg (2,000 unit) Tablet
50 mcg PO DAILY Qty: 0 0RF
Calcium 600 Mg + Vitamin D 800 Mcg
1 tab PO DAILY Qty: 0 0RF
Discontinued
cephalexin 500 mg Capsule
1 mg Q6H
ibuprofen 200 mg Tablet
400 mg PO Q6HPRN PRN (Reason: mild pain)
Discharge Orders:
Discharge Patient (As Directed); Ordered 08/12/24
Ordered By: Tracie Burch
Discharge Date and Time
Discharge Date/Time: 08/12/24 11:12
Print Language: KINYARWANDA
== END 2024-08-12 11:12 | disposition home or self-care (01) | DRG 603 ==
LOC: 4 WEST ACU 13:21
PROVIDERS: Nurse Practitioner; ADMITTING PHYSICIAN Internal Medicine; EMERGENCY PHYSICIAN Student in an Organized Health Care Education/Training Program; FAMILY PHYSICIAN Family Medicine
DX: L03.115 Cellulitis of right lower limb (principal); I50.22 Chronic systolic (congestive) heart failure; I48.0 Paroxysmal atrial fibrillation; Z79.01 Long term (current) use of anticoagulants; I11.0 Hypertensive heart disease with heart failure; E53.8 Deficiency of other specified B group vitamins; E55.9 Vitamin D deficiency, unspecified; I35.1 Nonrheumatic aortic (valve) insufficiency; I25.10 Atherosclerotic heart disease of native coronary artery without angina pectoris; F32.A Depression, unspecified; F41.9 Anxiety disorder, unspecified; Z95.2 Presence of prosthetic heart valve; Z95.1 Presence of aortocoronary bypass graft; Z95.0 Presence of cardiac pacemaker; Z80.0 Family history of malignant neoplasm of digestive organs; Z80.8 Family history of malignant neoplasm of other organs or systems; Z82.49 Family history of ischemic heart disease and other diseases of the circulatory system; Z79.84 Long term (current) use of oral hypoglycemic drugs; I07.1 Rheumatic tricuspid insufficiency; L40.8 Other psoriasis; Z96.659 Presence of unspecified artificial knee joint
CPT/HCPCS: 80048; 80053; 83735; 85025; 85027; 86803; 87040; 96365; 96366; 96375; 99285

== ENCOUNTER → 2024-08-13 11:19 | Outpatient (REF) | payer MEDICARE, SELFPAY | LOC: REG 11:19 | PROVIDERS: ATTENDING PHYSICIAN Internal Medicine Interventional Cardiology; FAMILY PHYSICIAN Family Medicine | DX: I48.0 Paroxysmal atrial fibrillation (principal); L03.90 Cellulitis, unspecified | CPT/HCPCS: 36415; 87040 ==

== ENCOUNTER 2024-08-17 06:16 | Day surgery (SDC) | payer MEDICARE, SELFPAY ==
[2024-08-17] VITALS (14 sets, daily range): BP systolic 108–146; BP diastolic 36–65; BMI 27.9
--- NOTE | 2024-08-17 07:03 | PTCARENOTE ---
Pt is here for a cardiac catheterization. Pt has been taking aspirin 81mg daily since 08/15/2024. Pt also takes jardiance 10mg daily with last dose this morning. Dr Donis made aware of above. No further treatment ordered at this time. Will continue
to monitor.
[2024-08-17] MEDS: NSS 272 ML IV (07:05)
--- NOTE | 2024-08-17 09:40 | PTCARENOTE ---
Pt c/o left sided chest 'tightness' rated 4/10 post cardiac catheterization. Lucero RUBIO made aware. EKG ordered and given to Lucero RUBIO. No change from previous EKG per Lucero May PHOTO EDITOR. Will continue to monitor.
[2024-08-17] MEDS: LASIX 40 MG IV (10:23)
--- NOTE | 2024-08-17 15:18 | CONSULT.STRU ---
Consultation
-
Date/Time Consultation Requested: 08/17/2024
Date/Time Consultation Performed: 08/17/2024
Requesting Provider: Jessica Donis
Performing Provider: JOANNE Botello
Reason for Consultation: Aortic insufficiency of bioprosthetic valve/ ARUN TAVR evaluation
Patient History
Physicians
Family Physician: Dr. Dylan Hurst
Outpatient Prison Guard Supervisor: Jessica Donis
Primary Prison Guard Supervisor: Jessica Donis
History of Present Illness
Ms Land is a very pleasant 78-year-old female with a past medical history significant for paroxysmal atrial fibrillation but no evidence of recurrence since ablation 09/25/2023. Eliquis d/c'ed by Dr. Donis and patient started on aspirin 81mg daily.
She also has a history of HFpEF, HTN, HLD, CAD s/p CABG x3 (patent NELSON to D1 to LAD, patent SVG to OM, patent SVG to OM on 2019 cath) in 2014 at [facility] in [place], former smoker, quit 23yrs ago, aortic stenosis s/p bioprosthetic
AVR also in 2014, obesity, RBBB, LAFB, lower back pain who presents today for cardiac cath as part of her ongoing evaluation of her valve disease.�She has had ongoing dyspnea on exertion for some time which has worsened recently. Her transthoracic
echocardiogram on 05/14/2024 suggested possible moderate to severe aortic regurgitation. A KG was completed on July 23, 2024. It showed normal LV systolic function with mild to moderate concentric LVH, LVEF of 55 to 60%, normal RV size and
function, moderately dilated left atrium, mildly dilated right atrium, irregular large mobile, elongated right atrial echodensity present on pacemaker wire in right atrium. Thickened mitral valve leaflets with mitral annular calcification and mildly
restricted posterior leaflet with a central jet of moderate mitral regurgitation. A bioprosthetic aortic valve is in place with moderate to severe stenosis and moderate to severe regurgitation. The regurgitation is within the struts of the
bioprosthetic valve. Cardiac cath today with some disease noted in her vein graft and the plan will be to discuss her at the heart team meeting on Saturday to decide if intervention is needed. She denies chest pain, palpitations, PND, Orthopnea,
peripheral edema. She denies fatigue, weakness or near syncope.
Reviewed the pathophysiology of aortic stenosis/ aortic insufficiency and the degeneration of her bioprosthetic valve. Explained the treatment options of SAVR and TAVR. Explained the TAVR evaluation process including follow up BMP, CT TAVR scan, CT
surgery consult and Heart Team discussion. Provided with script for BMP next week, script and appointment for CT TAVR, Consult appointment with Dr. Carney and a copy of the TAVR education booklet with contact information. Allowed for and answered
questions.
Past Medical History
Past Medical History: Atrial Fib (history of, s/p ablation), CAD (CABG 2013), OROZCO, HTN, Hypercholesterolemia, NIDDM (pre-diabetic), Valvular Disease (Moderate to severe AI, moderate MR, mild to moderate TR) and Other (obesity, psoriasis,
Osteoarthritis, recent cellulitis right ankle, carotid stenosis-<50% bilaterally, h/o R-BBB)
Past Surgical History
Past Surgical History: CABG (CABG x 3 NELSON-D1 to LAD, SVG to OM 2013 in [place], [place] Orthopedic (Right TKR, Left TKR, Right THR), Valve (SAVR 2013 [facility] Trifecta pericardial valve #23) and Other (cardiac ablation 09/25/2023, PPM 07/2023- medtronic
dual chamber)
Dental History
Regular dental care: Dr. Barker at [facility]
Family History
Mother: at Age (78yo, colon cancer)
Father: at Age (52yo, [place])
Social History
Alcohol: Daily (one martini )
Tobacco: Former Smoker (quit 20 years ago)
Personal:
Living: With Spouse
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
Allergies
Allergy/AdvReac Type Severity Reaction Status Date / Time
No Known Allergies Allergy Verified 08/10/24 08:38
Home Medications
�Medication �Instructions �Recorded �Confirmed �Type
atorvastatin 80 mg tablet 80 mg PO HS High Cholesterol 02/02/23 08/17/24 History
metoprolol succinate 50 mg 50 mg PO BID Blood Pressure 02/02/23 08/17/24 History
tablet,extended release 24 hr
empagliflozin 10 mg tablet 10 mg PO DAILY Diabetes 04/01/23 08/17/24 History
(Jardiance)
valsartan 80 mg tablet 40 mg PO BID Blood pressure 09/25/23 08/17/24 History
Calcium 600 Mg + Vitamin D 800 Mcg 1 tab PO DAILY Supplement ##0 08/12/24 08/17/24 Rx
acetaminophen 325 mg tablet 650 mg (2 x 325 mg) PO Q4HPRN PRN 08/12/24 08/17/24 Rx
mild pain or temp > 100.4 F #0 tabs
doxycycline hyclate 100 mg capsule 100 mg PO BID Skin issues 7 days 08/12/24 08/17/24 Rx
#14 caps
ergocalciferol (vitamin D2) 50 mcg 50 mcg PO DAILY Supplement #0 tabs 08/12/24 08/17/24 Rx
(2,000 unit) tablet
escitalopram oxalate 20 mg tablet 20 mg PO DAILY Mental 08/12/24 08/17/24 Rx
(Lexapro) Health/Anxiety #0 tabs
triamcinolone acetonide 0.1 % 1 applic topical DAILY Skin issues 08/12/24 08/17/24 Rx
topical cream #0 grams
white petrolatum 42 % topical 1 applic topical DAILY Skin issues 08/12/24 08/17/24 Rx
ointment (Hydrophor) #100 grams
Vitamin B-12 1 tab PO DAILY 08/17/24 08/17/24 History
aspirin 81 mg tablet,delayed 81 mg PO DAILY #1 tab 08/17/24 Rx
release
furosemide 40 mg tablet (Lasix) 60 mg (1.5 x 40 mg) PO BID Heart 08/17/24 08/17/24 Rx
disease/condition #0 tabs
STS%
STS %: 2.98%
Review of Systems
-
History Source: Patient and Family
General: Reports No Symptoms
HEENT: Reports No Symptoms
Respiratory: Reports OROZCO; Denies Cough, Asthma or PND
Cardiac: Reports CAD; Denies Chest Pain, Palpitations or Edema
Abdomen/GI: Reports No Symptoms; Denies Abdominal Pain, Reflux, Indigestion, Nausea or Vomiting
: Reports No Symptoms
Musculoskeletal: Reports No Symptoms
Skin: Reports Other (recent admission for right ankle cellulitis)
Neurological: Reports No Symptoms; Denies CVA, TIA, Headaches, Syncope or Dizzy
Vascular: Reports No Symptoms; Denies Claudication or PVD
Physical Exam
Vital Signs
Temp 97.0 F 08/17/24 06:25
Temp route: Temporal 08/17/24 06:25
Pulse 73 08/17/24 11:37
Resp Rate 17 08/17/24 11:37
Blood pressure 108/48 08/17/24 11:37
Blood pressure extremity used: Right upper arm 08/17/24 09:25
Position: Lying 08/17/24 09:25
MAP (cuff-Ariel Monitor) 66 08/17/24 11:37
SaO2 97 08/17/24 11:37
Oxygen Mode of Delivery Room air 08/17/24 12:39
Can the patient verbally communicate their pain? Yes 08/17/24 12:39
Pain scale ratin 08/17/24 10:10
Actual Weight 90.71 kg 08/17/24 06:25
Body Mass Index (BMI) 27.9 08/17/24 06:25
Labs
08/12/2024
H/H: 13.8/40.1
WBC: 5.7
Platelets: 194420
BUN/Creat: 24/0.8
GFR: >60
Diagnostic Studies
05/14/2024 Echocardiogram:
CONCLUSIONS
Left ventricle is severely dilated with mildly increased left ventricular wall
thickness. Mildly reduced left ventricular systolic function. Left ventricular
ejection fraction is 45-50% by Valenzuela's method of disc. Global hypokinesis.
Abnormal (paradoxical) septal motion consistent with RV pacemaker. Stage I
diastolic dysfunction suggestive of abnormal relaxation.
Normal right ventricular size and function. Pacer wire seen in right ventricle.
Moderate mitral regurgitation.
Bioprosthetic aortic valve replacement with peak/mean gradients across the
aortic valve 42/24 mmHg
Moderate to severe aortic regurgitation.
Mild to moderate tricuspid regurgitation. Estimated pulmonary artery pressure
of 28 mmHg assuming a right atrial pressure of 3 mmHg.
Compared to transesophageal echo dated 04/08/2023, aortic regurgitation was
previously reported as mild and now appears to be at least moderate
Indications:
H/O aortic valve replacement
Rhythm: Paced
Portable Study: No
Technical Quality: Fair
Contrast: None
BP: 118 / 66
PROCEDURE
A complete Transthoracic Echocardiogram was performed utilizing two-dimensional
evaluation with color flow and spectral Doppler analysis.
FINDINGS
Left Ventricle
Left ventricle is severely dilated with mildly increased left ventricular wall
thickness. Mildly reduced left ventricular systolic function. Left ventricular
ejection fraction is 45-50% by Valenzuela's method of disc. Global hypokinesis.
Abnormal (paradoxical) septal motion consistent with RV pacemaker. Stage I
diastolic dysfunction suggestive of abnormal relaxation.
Right Ventricle
Normal right ventricular size and function. Pacer wire seen in right ventricle.
Left Atrium
Indexed LA volume is severely abnormal (> 48 mL/m2).
Right Atrium
Normal right atrial size. Catheter/pacemaker wire present in the right atrial
cavity.
Mitral Valve
Thickened mitral valve leaflets with moderate mitral regurgitation. Peak/mean
gradients across the mitral valve are 7/4 mmHg, respectively.
Aortic Valve
Bioprosthetic aortic valve replacement with peak/mean gradients across the
aortic valve 42/24 mmHg, respectively. AV Dimensionless Index is 0.4. Moderate
to severe aortic regurgitation.
Tricuspid Valve
Tricuspid valve opens normally with mild to moderate tricuspid regurgitation.
Estimated pulmonary artery pressure of 28 mmHg assuming a right atrial pressure
of 3 mmHg.
Pulmonic Valve
Pulmonic valve opens normally with mild pulmonic regurgitation.
Pericardium\\Pleura
No pericardial or pleural effusions seen.
Aorta
The ascending aorta and aortic arch are normal in caliber.
Other Finding
The IVC is of normal size and demonstrates normal respiratory variation.
Interatrial septum is intact with no evidence of shunting by color flow
Doppler.
07/23/2024 KG:
PROCEDURE
After confirming that the patient was in a fasting state, the procedure and
risks were explained to the patient and informed consent was obtained. A time
out was performed and the patient was prepped. Propofol was administered by
anesthesia. The Omniplane probe was passed into the posterior pharynx, mid-
esophagus, distal esophagus, and gastric fundus without difficulty. Two
dimensional evaluation, color flow and spectral doppler imaging was obtained at
multiple levels. The patient remained stable throughout the procedure.
Medications
The patient was sedated per Anesthesia protocol with IV Propofol.
Complications
None.
FINDINGS
Left Ventricle
Normal left ventricular chamber size. Normal left ventricular systolic
function. Normal regional wall motion. Mild-moderate concentric left
ventricular hypertrophy. Left ventricular ejection fraction is 55-60%.
Right Ventricle
Normal right ventricular size and function.
Left Atrium
Moderately dilated left atrium.
Right Atrium
Mildly dilated right atrium. Irregular large, mobile, elongated right atrial
echodensity present on pacemaker wire in right atrium.
LA Appendage
Left atrial appendage is normal in size. No thrombus detected in the left
atrial appendage. Peak velocities within the left atrial appendage are
30cm/sec.
Mitral Valve
Thickened mitral valve leaflets. Mitral annular calcification. Mildly
restricted posterior leaflet with a central jet of moderate mitral
regurgitation. No significant mitral stenosis.
Aortic Valve
A bioprosthetic aortic valve is in place with moderate to severe stenosis and
moderate to severe regurgitation. The regurgitation is within the struts of
the bioprosthetic valve.
Tricuspid Valve
The tricuspid valve is structurally and functionally normal. Trace tricuspid
regurgitation.
Pulmonic Valve
The pulmonic valve is structurally and functionally normal. Trace pulmonic
regurgitation.
Pericardium\\Pleura
Trivial pericardial effusion.
Aorta
Moderate aortic plaque seen.
IA Septum
Normal interatrial septum. No evidence of shunt by color flow Doppler.
Pulmonary Vein
Normal pulmonary veins. Systolic blunting of the pulmonary venous flow.
Exam
General: Well Developed, Well Nourished, No Apparent Distress and Comfortable
HEENT: Moist Mucous Membranes, PERRLA and EOMI
Neck: Trachea Midline
Respiratory: Clear; Negative Wheezes, Crackles or Rhonchi
Cardiac: S1/S2, Regular Rhythm and Murmur (Grade III/)
GI: Soft, Non Tender, Non Distended and Normal Bowel Sounds
Rectal: Deferred by Provider
Skin: Warm, Dry and Other (small scabbed area right lateral ankle, mild erythema)
Neuro: AO x 3, No Motor Deficits and Nonfocal/Grossly Intact
Extremities: Pulses (+1 palpable pedal pulses); Negative Lower Level Edema
Psych: Calm
Assessment / Plan
-
Procedure Type:�Isolated AVR
Perioperative Outcome Estimate %
Operative Mortality 2.98%
Morbidity & Mortality 18.8%
Stroke 2.48%
Renal Failure 1.78%
Reoperation 5.94%
Prolonged Ventilation 14%
Deep Sternal Wound Infection 0.136%
Long Hospital Stay (>14 days) 8.31%
Short Hospital Stay (<6 days)* 20.6%
Severe Aortic insufficiency of bioprosthetic valve:
����������� Continue evaluation for aortic insufficiency as outpatient
����������� BMP next week
����������� CT TAVR scan 08/31/2024 at
����������� CT surgery consult with Dr. Carney� 09/08/2024
����������� Dental Clearance (Dr. Barker)
����������� Heart team discussion at [facility]
Data Reviewed
-
EKG: Report Reviewed by me (AV Dual paced)
Wind Projects Supervisor: Report Reviewed by me and Discussed with Physician
Echo: Report Reviewed by me and Discussed with Physician
Labs: Labs Reviewed by me
Old Records: Reviewed (Cardiology office notes, recent hospitalization records)
Total Time Spent with Patient (in minutes): 30
--- NOTE | 2024-08-18 18:37 | ITS.CL.CATH ---
Gypsum Block Setter - Catheterization
Cardiac Catheterization
Procedure Report:
LEFT AND RIGHT HEART CATHETERIZATION
Date of Procedure: August 18, 2024
Referring: Jessica Donis MD, [facility], [facility]
PROCEDURES:
1. Left heart catheterization, coronary angiogram.
2. Selective graft angiography.
3. Right heart catheterization.
4. Aortogram
5. Ultrasound-guided access.
INDICATION: Ongoing dyspnea on exertion with most recent echocardiogram showing moderate to severe aortic stenosis and moderate to severe aortic regurgitation of her bioprosthetic AVR from 2013, prior coronary artery bypass grafting in 2013 with
NELSON to LAD, skip 2 diagonal, SVG to RPDA and SVG to OM, paroxysmal atrial fibrillation status post ablation about a year ago with no recurrent A-fib since September 2023.
ACCESS:
1. Left radial artery, 6 [place] sheath, under ultrasound guidance.
2. Right common femoral vein, 6 [place] sheath, under ultrasound guidance using a micropuncture kit.
Ultrasound was utilized for vascular access. The left radial artery and right common femoral vein were visualized under ultrasound, and the vessel was patent and the artery was pulsatile. The images were stored permanently in the patient's medical
record. Under direct ultrasound guidance, a 6 [place] sheath was inserted into the artery and vein, respectively using a micropuncture kit through a modified Seldinger technique.
HEMODYNAMICS : (mmHg)
RA (m) : 10
RV (s/d,m) : 43/7, 14
PA (s/d, m) : 42/21, 30
PCWP (m) : 22
PA saturation: 66.2% on room air
AO saturation: 93.4% on room air
Cardiac Output : 3.92 L/min
Cardiac Index : 1.87 L/min/m-2
Systemic vascular resistance: 1712 dsc^(-5)
Pulmonary vascular resistance: 2.04 gaines unit
AO (s/d) : 159/53
LV (s/d) : 178/19
LVEDP : 32
Invasive transaortic mean gradient of 27 mmHg, aortic valve area of 0.72 cm�
Aortogram: There is evidence of 3+ aortic regurgitation in the setting of a presence of a bioprosthetic AVR
CORONARY FINDINGS
DOMINANCE: Right
LEFT MAIN: The left main artery is a large-caliber vessel which gives rise to the left anterior descending artery and the left circumflex artery. There is mild distal tapering.
LEFT ANTERIOR DESCENDING: The left anterior descending artery is a medium caliber vessel which gives rise to multiple small to medium caliber diagonal branches. There is occlusion in the mid LAD with competitive flow noted from a patent NELSON graft
which skips to D2 and the LAD.
CIRCUMFLEX: The left circumflex artery is a medium caliber vessel with occlusion in the proximal portion of the OM1 with competitive flow noted from a patent saphenous vein graft.
RIGHT CORONARY ARTERY: The right coronary artery is a medium caliber vessel with 100% occlusion in the midportion with a patent saphenous vein graft to RPDA.
GRAFT ANATOMY: The NELSON graft was selectively engaged using a 6 [place] merit KEKE diagnostic catheter, and both saphenous vein grafts were selectively engaged using 5 [place] JR4 diagnostic catheters.
1. NELSON graft skip to LAD and diagonal: Widely patent.
2. Saphenous vein graft to RPDA: Patent with diffuse mild to moderate plaque in the proximal and midportion with NICK-3 flow.
3. Saphenous vein graft to left circumflex/OM: Widely patent with 30 to 40% anastomotic stenosis. NICK-3 flow was noted.
SEDATION: 62 minutes of procedural sedation was utilized. An independent medical imaging specialist was present to assist with and help manage the patient's level of consciousness and physiologic status.
RADIATION SUMMARY: Fluoro Time (min): 14.5, Dose (mGy): 625.68, DAP (Gy.cm2) : 43.7
Closure Device: 1. Vascular band over left radial artery, 10 cc of air.
2. Manual pressure was held over the right common femoral venous access site with successful hemostasis.
CONCLUSIONS
1. Significant [place] coronary artery disease.
2. NELSON graft skipped to LAD and diagonal is widely patent.
3. Diffuse mild to moderate plaque in the proximal and midportion of the saphenous vein graft to RPDA with NICK-3 flow.
4. Widely patent saphenous vein graft to OM 2 with 30 to 40% anastomotic stenosis.
5. Significantly elevated right left-sided filling pressures with reduced cardiac output in the setting of elevated systemic vascular resistance.
6. Invasive transaortic mean gradient of 27 mmHg, aortic valve area of 0.72 cm� consistent with moderate to severe bioprosthetic aortic stenosis.
7. There is evidence of 3+ aortic regurgitation in the setting of a presence of a bioprosthetic AVR
RECOMMENDATIONS
1. Optimize medications to improve filling pressures and SVR.
2. Proceed with CTA of chest, abdomen and pelvis per TAVR protocol to evaluate feasibility of valve in valve TAVR and CT surgical evaluation prior to discussion at the structural heart meeting.
3. Aggressive management of cardiovascular risk factors.
4. Wean radial band per protocol.
Jessica Donis MD, FACC, [facility]
== END 2024-08-17 12:39 | disposition home or self-care (01) ==
LOC: CATH 06:16
PROVIDERS: ATTENDING PHYSICIAN Internal Medicine Interventional Cardiology; FAMILY PHYSICIAN Family Medicine
DX: I25.10 Atherosclerotic heart disease of native coronary artery without angina pectoris (principal); I25.810 Atherosclerosis of coronary artery bypass graft(s) without angina pectoris; R06.09 Other forms of dyspnea; Z95.1 Presence of aortocoronary bypass graft; I48.0 Paroxysmal atrial fibrillation; Z98.890 Other specified postprocedural states; Z95.3 Presence of xenogenic heart valve; I48.92 Unspecified atrial flutter; E78.2 Mixed hyperlipidemia; I08.3 Combined rheumatic disorders of mitral, aortic and tricuspid valves; I45.10 Unspecified right bundle-branch block; Z79.01 Long term (current) use of anticoagulants; Z79.84 Long term (current) use of oral hypoglycemic drugs; Z79.899 Other long term (current) drug therapy; I11.0 Hypertensive heart disease with heart failure; I50.32 Chronic diastolic (congestive) heart failure; Z87.891 Personal history of nicotine dependence; E11.9 Type 2 diabetes mellitus without complications; E66.9 Obesity, unspecified; E78.00 Pure hypercholesterolemia, unspecified; Z79.82 Long term (current) use of aspirin; Z68.27 Body mass index [BMI] 27.0-27.9, adult; Z80.0 Family history of malignant neoplasm of digestive organs
CPT/HCPCS: 99152; 99153; 76937; 93005; 93461; 93567; C1894; Q9967

== ENCOUNTER 2024-08-21 15:52 | Emergency (ER) | payer MEDICARE, SELFPAY ==
[2024-08-21 15:53] VITALS: BP 133/55
--- NOTE | 2024-08-21 17:05 | ED.GENMED ---
History of Present Illness
General
Chief Complaint: Skin Problem
Source: patient
Exam Limitations: none
Time Seen by Provider: 08/21/24 16:15
History of Present Illness
History of Present Illness:
78-year-old female on aspirin presents for evaluation of bruising noted to the left wrist. 4 days ago, she had left radial access for heart catheterization. Since then she has noted increasing bruising to the area. She denies pain shortness of
breath or chest pain. She spoke with the cardiology office today and was referred here for evaluation. No other complaints at this
Past History
Past History
ED Past Medical History: Arrthythmia, CAD, CHF, HTN and Other (Psoriasis)
ED Past Surgical History: Cardiac (Aortic valve replacement, CABG) and Orthopedic (Knee replacement)
Social History
Tobacco: Non-smoker
Alcohol: None
Drug: None
Personal:
Living: with family
Employment: Retired
Family History
Family History: Negative Early CAD
Phy Exam
Physical Exam
Physical Exam:
General: Well-appearing female no acute respiratory distress
HEENT: Normocephalic atraumatic
Heart: Regular rate and rhythm
Lungs: Clear no wheeze
Abd: soft, nontender
Ext: no cyanosis
Course
Orders/Labs/Results
Orders:
Orders
08/21/24 17:07
Vascular Exam Limited US [US Vascular Exam Limited] Urgent
Comment:
Reason For Exam: left wrist ecchymosis, eval for pseudoaneurysm
Vital Signs
Initial and Last Documented VS:
Initial Vital Signs
Temp Pulse Resp BP Pulse Ox
97.5 F 82 18 133/55 97
08/21/24 15:53 08/21/24 15:53 08/21/24 15:53 08/21/24 15:53 08/21/24 15:53
Last Documented Vital Signs
Temp Pulse Resp BP Pulse Ox
97.5 F 82 18 133/55 97
08/21/24 15:53 08/21/24 15:53 08/21/24 15:53 08/21/24 15:53 08/21/24 15:53
MDM/Problems Addressed
Differential Diagnosis Includes:
Left wrist ecchymosis following catheterization procedure 4 days ago. Discussed with cardiology who requested ultrasound to evaluate for pseudoaneurysm.
*Critical Care Note
Total Time (30-74mins, 75-104mins- exclusive of procedures): Not Applicable
Update Note
Update Note:
Vascular ultrasound performed and there is no evidence of pseudoaneurysm. Patient stable for discharge with hematoma
ED Attending Note
-
Portions of this chart may have been created with voice recognition software.� Occasional wrong word or��sound alike� substitutions may have occurred due to the inherent limitations of voice recognition software.
Discharge Plan
Departure
Patient Disposition: Home (Routine Discharge)
Date of Disposition: 08/21/24
Time of Disposition: 18:45
Patient with high blood pressure during this ER visit?: No
Discharge Problem:
Hematoma
Instructions: Hematoma
Prescriptions:
No Action
atorvastatin 80 mg Tablet
80 mg PO HS
metoprolol succinate 50 mg Tablet Extended Release 24 Hr
50 mg PO BID
Jardiance 10 mg Tablet
10 mg PO DAILY
valsartan 80 mg tablet
40 mg PO BID
acetaminophen 325 mg Tablet
650 mg PO Q4HPRN PRN (Reason: mild pain or temp > 100.4 F) Qty: 0 0RF
white petrolatum [Hydrophor] 42 % Ointment
1 applic topical DAILY Qty: 100 0RF
doxycycline hyclate 100 mg capsule
100 mg PO BID 7 Days Qty: 14 0RF
triamcinolone acetonide 0.1 % Cream
1 applic TOPICAL DAILY Qty: 0 0RF
Rx Instructions:
face,legs and feet
escitalopram oxalate [Lexapro] 20 mg Tablet
20 mg PO DAILY Qty: 0 0RF
ergocalciferol (vitamin D2) 50 mcg (2,000 unit) Tablet
50 mcg PO DAILY Qty: 0 0RF
Calcium 600 Mg + Vitamin D 800 Mcg
1 tab PO DAILY Qty: 0 0RF
Vitamin B-12
1 tab PO DAILY
aspirin 81 mg tablet,delayed release (DR/EC)
81 mg PO DAILY Qty: 1 0RF
furosemide [Lasix] 40 mg tablet
60 mg PO BID Qty: 0 0RF
Referrals:
Dylan Hurst MD [Family Provider] -
Activity Restrictions/Additional Instructions:
As discussed, there is no concern for clot or pseudoaneurysm. This is a hematoma as a result of the procedure. You may ice for swelling or elevate. Return if needed. 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
Interventions
Interventions:
*Risk Screen - Suicide Last Done: 08/21/24 15:53
*General Assessment Last Done: 08/21/24 15:53
*Neglect/Abuse Screening Last Done: 08/21/24 15:53
*ED- Fall Risk Assessment Last Done: 08/21/24 17:36
ED-Skin Assessment Last Done: 08/21/24 17:36
Discharge Date and Time
Print Language: BOTSWANAN
[2024-08-21 18:54] VITALS: BP 128/47
== END 2024-08-21 18:57 | disposition home or self-care (01) ==
LOC: EMR 15:52
PROVIDERS: EMERGENCY PHYSICIAN Student in an Organized Health Care Education/Training Program; FAMILY PHYSICIAN Family Medicine
DX: S60.212A Contusion of left wrist, initial encounter (principal); X58.XXXA Exposure to other specified factors, initial encounter; I11.0 Hypertensive heart disease with heart failure; I25.10 Atherosclerotic heart disease of native coronary artery without angina pectoris; I50.9 Heart failure, unspecified; Z95.1 Presence of aortocoronary bypass graft; Z95.2 Presence of prosthetic heart valve; Z96.659 Presence of unspecified artificial knee joint
CPT/HCPCS: 99284; 93926

== ENCOUNTER → 2024-08-24 13:32 | Outpatient (REF) | payer MEDICARE, SELFPAY ==
[2024-08-24 14:30] LABS: Blood Urea Nitrogen 41 mg/dl (7-17); Calcium 9.4 mg/dl (8.4-10.2); Carbon Dioxide 33 mmol/L (22-30); Chloride 98 mmol/L (98-107); Glucose 125 mg/dl (70-99); Sodium 142 mmol/L (135-145); eGFR 46.33
== END ==
LOC: REG 13:32
PROVIDERS: ATTENDING PHYSICIAN Nurse Practitioner Adult Health
DX: I35.1 Nonrheumatic aortic (valve) insufficiency (principal); I50.33 Acute on chronic diastolic (congestive) heart failure
CPT/HCPCS: 36415; 80048

== ENCOUNTER 2024-08-25 07:19 | Day surgery (SDC) | payer MEDICARE, SELFPAY ==
[2024-08-25] VITALS (21 sets, daily range): BP systolic 84–140; BP diastolic 26–79; BMI 27.9
[2024-08-25 11:39] LABS: ACT-LR - POC 334 Seconds (116-155)
[2024-08-25 12:14] LABS: ACT-LR - POC 282 Seconds (116-155)
== END 2024-08-25 18:03 | disposition home or self-care (01) ==
LOC: CATH 07:19
PROVIDERS: ATTENDING PHYSICIAN Internal Medicine Interventional Cardiology; FAMILY PHYSICIAN Family Medicine
DX: I25.10 Atherosclerotic heart disease of native coronary artery without angina pectoris (principal); Z95.3 Presence of xenogenic heart valve; I50.33 Acute on chronic diastolic (congestive) heart failure; Z95.1 Presence of aortocoronary bypass graft; I48.0 Paroxysmal atrial fibrillation; E78.2 Mixed hyperlipidemia; I45.10 Unspecified right bundle-branch block; R73.03 Prediabetes; Z79.01 Long term (current) use of anticoagulants; Z79.899 Other long term (current) drug therapy; Z79.84 Long term (current) use of oral hypoglycemic drugs
CPT/HCPCS: 93799; 99152; 99153; 85347; 93459; C1769; C1887; C1894; Q9967

== ENCOUNTER → 2024-08-28 08:34 | Outpatient (REF) | payer MEDICARE, SELFPAY ==
[2024-08-28 09:50] LABS: Blood Urea Nitrogen 25 mg/dl (7-17); Calcium 9.8 mg/dl (8.4-10.2); Carbon Dioxide 34 mmol/L (22-30); Chloride 102 mmol/L (98-107); Glucose 96 mg/dl (70-99); Potassium 4.6 mmol/L (3.5-5.1); Sodium 142 mmol/L (135-145); eGFR 57.66
== END ==
LOC: REG 08:34
PROVIDERS: ATTENDING PHYSICIAN Nurse Practitioner Adult Health
DX: I35.1 Nonrheumatic aortic (valve) insufficiency (principal); I50.33 Acute on chronic diastolic (congestive) heart failure
CPT/HCPCS: 36415; 80048

== ENCOUNTER 2024-08-30 21:43 | Emergency (ER) | payer MEDICARE, SELFPAY ==
[2024-08-30 22:00] VITALS: BP 116/41
[2024-08-30 23:57] VITALS: BP 116/42; BMI 29.2
--- NOTE | 2024-08-30 23:57 | ED.GENMED ---
History of Present Illness
General
Chief Complaint: Skin Surface Trauma
Time Seen by Provider: 08/30/24 23:33
History of Present Illness
History of Present Illness:
Patient presents to the emergency department after head injury. Per patient, she was drinking martinis tonight which she does not typically do. She went to the kitchen to get a snack and fell backwards striking her head on the stove. There is no
loss of consciousness. She feels back to her baseline. She has a history of aortic valve replacement and CABG status post ablation and pacemaker placement. She notes that she is being evaluated for valve repair and has been having worsening
exertional dyspnea subacutely.
Past History
Past History
ED Past Medical History: Arrthythmia, CAD, CHF, HTN and Other (Psoriasis)
ED Past Surgical History: Cardiac (Aortic valve replacement, CABG) and Orthopedic (Knee replacement)
Social History
Tobacco: Non-smoker
Alcohol: None
Drug: None
Personal:
Living: with family
Employment: Retired
Family History
Family History: Negative Early CAD
Phy Exam
Physical Exam
Physical Exam:
GENERAL APPEARANCE: NAD, well developed/ well nourished
EYES lids/conjunctiva normal
EARS/NOSE/THROAT Mucous membranes moist, uvula midline without oral pharyngeal erythema, exudate or swelling
HEAD/NECK deep abrasion to crown of head there is no arterial bleeding no foreign bodies on thorough cleaning
RESPIRATORY respiratory effort normal, speaks in full sentences, no accessory muscle use. Lungs clear to auscultation without rhonchi, wheezes, rales
CARDIAC Regular rate and rhythm, no edema.
ABDOMINAL Soft, ND/NT. No pulsatile masses on exam, rebound tenderness, Holt sign or pain over Mcburney's point.
MUSCLES/EXTREMITIES No abnormal range of motion, no swelling.
SKIN Warm, pink and dry. No rashes
NEUROLOGICAL Speech is clear and appropriate. Normal level of consciousness. 5/5 strength in all extremities.
PSYCH Normal mood and affect. Judgement/competence is appropriate
Course
Orders/Labs/Results
Orders:
Orders
08/30/24 21:[address] [CT Head W/o Iv Contrast] Urgent
Comment:
Reason For Exam: FALL STRUCK POSTERIOR HEAD
08/30/24 23:51
Basic Metabolic Panel Urgent
Complete Blood Count/With Diff Urgent
Troponin I Urgent
08/30/24 23:52
Electrocardiogram (*1) Urgent
Reason for Study: Shortness of Breath
08/31/24 00:00
CR Chest - 2 Views Urgent
Reason For Exam: sob
Abnormal Lab Results
08/31/24
00:00
RBC 4.19 L 10^6/uL
(4.20-5.40)
MCH 32.7 H pg
(27.0-31.0)
RDW 14.8 H %
(11.5-14.5)
MPV 10.5 H fL
(7.4-10.4)
Abs Immat Gran (auto) 0.1 H 10^3/uL
(0-0.05)
Absolute Monos (auto) 0.9 H 10^3/uL
(0.1-0.6)
Immature Gran % 1.3 H %
(0-0.5)
Monocytes % 11.9 H %
(1.7-9.3)
BUN 29 H mg/dl
(7-17)
Glucose 113 H mg/dl
(70-99)
08/31/24 00:00
08/31/24 00:00
Vital Signs
Initial and Last Documented VS:
Initial Vital Signs
Temp Pulse Resp BP Pulse Ox
98.2 F 70 18 116/41 98
08/30/24 22:00 08/30/24 22:00 08/30/24 22:00 08/30/24 22:00 08/30/24 22:00
Last Documented Vital Signs
Temp Pulse Resp BP Pulse Ox
98.2 F 71 16 116/42 95
08/30/24 22:00 08/30/24 23:57 08/30/24 23:57 08/30/24 23:57 08/30/24 23:57
*Critical Care Note
Total Time (30-74mins, 75-104mins- exclusive of procedures): Not Applicable
ED Attending Note
ED Attending Note
ED Attending Note:
Patient presents with likely mechanical fall in the setting of alcohol use. However given her complex medical history, will check baseline labs and chest x-ray to rule out alternative causes.
-
Portions of this chart may have been created with voice recognition software.� Occasional wrong word or��sound alike� substitutions may have occurred due to the inherent limitations of voice recognition software.
Discharge Plan
Departure
Patient Disposition: Home (Routine Discharge)
Date of Disposition: 08/31/24
Time of Disposition: 01:00
Patient with high blood pressure during this ER visit?: No
Discharge Problem:
CHI (closed head injury), Alcohol intoxication
Prescriptions:
No Action
atorvastatin 80 mg Tablet
80 mg PO QPM
metoprolol succinate 50 mg Tablet Extended Release 24 Hr
50 mg PO BID
Jardiance 10 mg Tablet
10 mg PO DAILY
valsartan 80 mg tablet
40 mg PO BID
acetaminophen 325 mg Tablet
650 mg PO Q4HPRN PRN (Reason: mild pain or temp > 100.4 F) Qty: 0 0RF
white petrolatum [Hydrophor] 42 % Ointment
1 applic topical DAILY Qty: 100 0RF
triamcinolone acetonide 0.1 % Cream
1 applic TOPICAL DAILY Qty: 0 0RF
Rx Instructions:
face,legs and feet
ergocalciferol (vitamin D2) 50 mcg (2,000 unit) Tablet
50 mcg PO DAILY Qty: 0 0RF
Calcium 600 Mg + Vitamin D 800 Mcg
1 tab PO DAILY Qty: 0 0RF
Vitamin B-12
1 tab PO DAILY
aspirin 81 mg tablet,delayed release (DR/EC)
81 mg PO DAILY Qty: 1 0RF
escitalopram oxalate [Lexapro] 20 mg tablet
20 mg PO HS
furosemide [Lasix] 40 mg tablet
60 mg PO BID AT 0800,1600 Qty: 90 5RF
Referrals:
Dylan Hurst MD [Family Provider] -
Interventions
Interventions:
*Risk Screen - Suicide Last Done: 08/30/24 22:01
*General Assessment Last Done: 08/30/24 22:01
*Neglect/Abuse Screening Last Done: 08/30/24 22:01
*ED- Fall Risk Assessment Last Done: 08/30/24 23:57
*ED COVID-19 Vaccine History Last Done: 08/30/24 22:01
*Nursing Disposition Last Done: 08/31/24 01:15
ED- Neurological Assessment Last Done: 08/30/24 23:57
ED-Skin Assessment Last Done: 08/30/24 23:57
Discharge Date and Time
Discharge Date/Time: 08/31/24 01:15
Print Language: ECUADOREAN
[2024-08-31 00:26] LABS: Blood Urea Nitrogen 29 mg/dl (7-17); Calcium 9.9 mg/dl (8.4-10.2); Carbon Dioxide 28 mmol/L (22-30); Chloride 104 mmol/L (98-107); Estimated Creatinine Clearance 65 ml/min; Glucose 113 mg/dl (70-99); Potassium 4.3 mmol/L (3.5-5.1); Sodium 143 mmol/L (135-145); eGFR > 60.00
[2024-08-31 00:31] LABS: % Basophils 0.9 % (0-2); % Eosinophils 4.5 % (0-6); % Immature Granulocytes 1.3 % (0-0.5); % Lymphocytes 26.1 % (20.5-51.1); % Monocytes 11.9 % (1.7-9.3); % Neutrophils 55.3 % (42.2-75.2); Absolute Basophils 0.1 10^3/uL (0-0.2); Absolute Eosinophils 0.3 10^3/uL (0-0.7); Absolute Immature Granulocytes 0.1 10^3/uL (0-0.05); Absolute Monocytes 0.9 10^3/uL (0.1-0.6); Absolute Neutrophils 4.1 10^3/uL (1.4-6.5); Hematocrit 40.8 % (37.0-47.0); Hemoglobin 13.7 g/dL (12.0-16.0); Mean Corp Hgb Conc. 33.6 g/dL (33.0-37.0); Mean Corpuscular Hgb 32.7 pg (27.0-31.0); Mean Corpuscular Volume 97.4 fL (81.0-99.0); Mean Platelet Volume 10.5 fL (7.4-10.4); Nucleated Red Blood Cells % 0 %; Platelet Count 150 10^3/uL (130-400); Red Blood Cell Count 4.19 10^6/uL (4.20-5.40); Red Cell Dist. Width 14.8 % (11.5-14.5); White Blood Cell Count 7.5 10^3/uL (4.8-10.8)
[2024-08-31 00:35] LABS: Troponin I 0.026 ng/ml
== END 2024-08-31 01:15 | disposition home or self-care (01) ==
LOC: EMR 21:43
PROVIDERS: EMERGENCY PHYSICIAN Emergency Medicine; FAMILY PHYSICIAN Family Medicine
DX: S09.90XA Unspecified injury of head, initial encounter (principal); W19.XXXA Unspecified fall, initial encounter; Y90.9 Presence of alcohol in blood, level not specified; I25.10 Atherosclerotic heart disease of native coronary artery without angina pectoris; I11.0 Hypertensive heart disease with heart failure; I50.9 Heart failure, unspecified; F10.129 Alcohol abuse with intoxication, unspecified; Z95.0 Presence of cardiac pacemaker; Z95.1 Presence of aortocoronary bypass graft; Z95.2 Presence of prosthetic heart valve; Z96.659 Presence of unspecified artificial knee joint
CPT/HCPCS: 99284; 70450; 71046; 80048; 84484; 85025; 93005

== ENCOUNTER → 2024-08-31 09:17 | Outpatient (REF) | payer MEDICARE, SELFPAY | LOC: RAD 09:17 | PROVIDERS: ATTENDING PHYSICIAN Nurse Practitioner Adult Health; FAMILY PHYSICIAN Family Medicine | DX: I35.1 Nonrheumatic aortic (valve) insufficiency (principal) | CPT/HCPCS: 74174; 75572; Q9967 ==

== ENCOUNTER 2024-09-24 05:29 | Inpatient (IN) | payer MEDICARE, SELFPAY ==
[2024-09-18 09:15] LABS: % Basophils 0.7 % (0-2); % Eosinophils 4.2 % (0-6); % Immature Granulocytes 0.3 % (0-0.5); % Lymphocytes 23.6 % (20.5-51.1); % Monocytes 12.5 % (1.7-9.3); % Neutrophils 58.7 % (42.2-75.2); Absolute Basophils 0.1 10^3/uL (0-0.2); Absolute Eosinophils 0.3 10^3/uL (0-0.7); Absolute Lymphocytes 1.6 10^3/uL (1.2-3.4); Absolute Monocytes 0.8 10^3/uL (0.1-0.6); Hematocrit 41.6 % (37.0-47.0); Hemoglobin 14.1 g/dL (12.0-16.0); Mean Corp Hgb Conc. 33.9 g/dL (33.0-37.0); Mean Corpuscular Volume 100.2 fL (81.0-99.0); Mean Platelet Volume 10.6 fL (7.4-10.4); Nucleated Red Blood Cells % 0 %; Platelet Count 137 10^3/uL (130-400); Red Blood Cell Count 4.15 10^6/uL (4.20-5.40); Red Cell Dist. Width 15.5 % (11.5-14.5); White Blood Cell Count 6.7 10^3/uL (4.8-10.8)
[2024-09-18 09:30] LABS: INR 0.93; PT 12.7 Sec (11.4-14.6)
[2024-09-18 09:31] LABS: APTT 26.5 Sec (23.4-35.0)
[2024-09-18 09:38] LABS: NT-proBNP 2660 pg/ml; Urine Albumin Negative (Neg - Trace); Urine Bilirubin Negative (Negative); Urine Character Clear (Clear); Urine Color Yellow; Urine Glucose 3+ (Negative); Urine Ketone Negative (Negative); Urine Leukocyte Negative (Negative); Urine Nitrite Negative (Negative); Urine Occult Blood Negative (Negative); Urine Urobilinogen Negative (Neg - 1+); Urine pH 6.5 (5.0-9.0)
[2024-09-18 09:48] LABS: ALT (SGPT) 25 U/L (0-35); AST (SGOT) 42 U/L (14-36); Albumin 4.2 g/dl (3.5-5.0); Alkaline Phosphatase 122 U/L (38-126); Blood Urea Nitrogen 31 mg/dl (7-17); Calcium 9.7 mg/dl (8.4-10.2); Carbon Dioxide 30 mmol/L (22-30); Chloride 105 mmol/L (98-107); Direct Bilirubin 0.2 mg/dl (0.0-0.4); Glucose 87 mg/dl (70-99); Potassium 4.6 mmol/L (3.5-5.1); Sodium 143 mmol/L (135-145); Total Bilirubin 0.8 mg/dl (0.2-1.3); eGFR 51.43
--- NOTE | 2024-09-18 09:55 | CM ---
Chart reviewed. Met with the patient and her in [facility]. Reviewed preoperative and postoperative instructions and restrictions, along with showering instructions. Gave patient 2 soaps. Patient is agreeable to a home visit by CT
Transitional RN. Patient is independent of ADLS, lives with her in a [address], [facility], ambulates with a SPC when walking long distances. Patient is leaving for [place] on -, so patient will need postop appointment prior to. Depending
on echo results at discharge, patient may have her repeat echo done when she comes back from [place]. Plan is for the patient to return home with CT Transitional RN.
[2024-09-18 11:09] LABS: Glycohemoglobin (HgbA1c) 5.4 % (4.0-5.6)
[2024-09-22 13:45] VITALS: BMI 32.6
[2024-09-24] VITALS (22 sets, daily range): BP systolic 81–134; BP diastolic 37–61; BMI 28.2
--- NOTE | 2024-09-24 06:00 | PTCARENOTE ---
Pt arrived to IVU for TAVR procedure. X2 home showers confirmed. Pt clipped and cleaned with CHG wipes. gown and socks provided. IV place. all admission questions answered. Tele monitor place on pt for strip, pt is V paced with PPM. home medications
confirmed. pt awaiting laboratory engineer
--- NOTE | 2024-09-24 06:04 | W.CVOR.SURPR ---
CVOR Surgeon Immed Pre Op
-
I have examined this patient prior to performance of the scheduled procedure.
The patient's condition is unchanged from the time of the dictated/written History and
Physical and the patient is able to undergo the scheduled procedure.
TAVR in SAVR, limited rescue, ok for CPR/Shocks, she has stated that she will leave it up to the surgeon to
decision if the situation is futile (i.e. root rupture with cardiovascular collapse) or if it is stable enough that she can under go redo surgery (i.e. valve embolization)
[2024-09-24 06:51] LABS: Glucose - Point of Care 84 mg/dl (70-99)
[2024-09-24 08:16] LABS: ACT-LR - POC 300 Seconds (116-155)
--- NOTE | 2024-09-24 08:27 | CM ---
Reviewed chart. Mrs. Land is in [facility] today. Prior to admission she resides with her spouse in a one story home with four steps to enter. Prior to admission she ambulates long distances with a single point cane and independent with
adls. Medical work-up in progress. The discharge plan is to return home with her spouse and a home visit by the Transitional Care Nurse when medically medically stable.
--- NOTE | 2024-09-24 08:42 | W.PN.CT.SURG ---
CT Surgery Operative Note
-
OPERATIVE REPORT
Preoperative Diagnosis: Severe aortic valve stenosis, symptomatic
Postoperative Diagnosis: Same
Procedure(s) Performed: Right trans femoral TAVR in SAVR with a 26 mm Medtronic Evolut FX+ device with post deployment balloon valvuloplasty
Date of Procedure: 09/24/2024
Comorbidities:
1. 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
2. Acute on chronic systolic and diastolic heart failure with hemodynamic instability during TAVR deployment
3. Atrial fibrillation with slow ventricular response
4. Status post permanent pacemaker implantation
5. History of CAD status post CABG and aortic valve replacement
6. Carotid artery stenosis
Cardiac Surgeon: Sanjay Jin MD, MS
Furnace Stock Inspector: Jessica Donis MD
Anesthesia: Conscious Sedation, Local
EBL: 80cc
Products: none
Implant: Medtronic Evolut FX + 26mm SN: [id number]
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 Symptomatic with reduced left ventricular ejection fraction. CT-TAVR protocol revealed acceptable
anatomy for a self-expanding TAVR valve inside SAVR.
Start time: 0752hrs
Deployment time: 0819hrs
End time: 0833hrs
Radiation Dose (mGy): 168.08
DAP (cm2.Gy): 15.5091
Fluoroscopy time (minutes): 9.9
Contrast volume (ml):
TAVR gradient (mmHg): 11mmHg
Protamine Dose: 30mg
Final Valve Positioninmm:4mm
Findings: Preoperative LVEF was 40-45% and was 40-45% following TAVR without inotropic support. Overall function remained as it was preoperatively with the same regional wall motion abnormalities and dyskinesis. The aortic valve was well seated
without significant PVL, mean gradient across the new valve was 8 mmHg status post balloon valvuloplasty. The patient did not require additional pacing postoperative as they already had a permanent pacemaker. There was successful placement of 26 mm
Evolut FX + TAVR valve in the side of a 23 mm trifecta surgical valve without acute complications. Of note, her diastolic pressure did improve significantly from the 20 to 30s to 60 to 70s. During the case there was time in which she was
hemodynamically unstable requiring significant pressor support indicating acute on chronic decompensated systolic and diastolic heart failure as she had mixed valvular pathology that included both aortic valve stenosis and aortic valve insufficiency.
Access:
1. Device -right common femoral artery, perclose x 2
2. 5 [place] sheath in the left common femoral artery for arterial pressure monitoring-manual hold
3. Transvenous Pacer -left common femoral vein
Description of Procedure: The patient was taken to the cathode ray tube assembler. Their identity and procedure to be performed were verified and they were positioned supine on the cathode ray tube assembler table. Induction via conscious sedation with local analgesia. The patient was
then prepped and draped from chin to thigh in a sterile fashion. A preoperative time-out was performed with all members of the team present. Using fluoroscopy, bilateral femoral heads and their margins were identified. Arterial and venous access
were done with a micropuncture needle with Seldinger technique. Test pacing revealed capture with excellent threshold. Angiography confirmed proper puncture site and femoral artery integrity. Two Per-Close devices were used on the TAVR side. An AL1
catheter was used to deliver a extrastiff wire and insertion of the working sheath. An AL1 catheter with a J wire was used to access the LV this was subsequently switched over to a angled pigtail catheter. The valve was prepped and mounted on to
the device carrier. An ACT of >250 was achieved. We verified x 3 under fluoroscopy that the valve was mounted correctly with paddles in appropriate position. We than set our parameters to achieve a co-planar view using the valved metal frame and
core knots in order to remove all parallax, this was achieved in AP. We advanced the device with it's in-line sheath into the descending thoracic aorta and over the arch into the root and positioned across the aortic valve. Contrast fluoroscopy was
used to visualize the prosthesis across the valve. We performed a quick pre-deployment time out. The valve was slowly deployed under pacing at 140 bpm to just before annular contact. At this point the valve was functional and pacing was stopped and
we slowly continued to deploy the valve until the crowns and paddles were free from the device. We slowly continued to deploy the valve until the crowns and paddles were free from the device. The deployment device was withdrawn into the descending
thoracic aorta while maintaining wire access across the valve. As the valve did appear to be somewhat constrained and angled/canted we opted to use a 21 mm balloon to perform a balloon valvuloplasty. The device with his inline sheath was removed
and a new sheath was reinserted over a stiff wire. A 21 Morgan balloon was prepped and advanced over the stiff wire until across the TAVR inside SAVR. Under rapid pacing at 180 bpm we performed a balloon valvuloplasty which did show a minor
improvement. The balloon valvuloplasty was then removed leaving wire access. A transthoracic echocardiogram was performed. The device was removed from the groin as we cinched down the perclose devices while maintaining wire access. There was
acceptable hemostasis. All wires were removed and perclose snugged and cut. There was acceptable hemostasis of bilateral groins.
All instrument, sponge, and needle counts were confirmed to be correct x 2 at the end of the operation. The patient was transferred to the cardiac intensive care unit in stable condition.
I, Dr. Sanjay Jin, was present, scrubbed for, and performed all critical elements of this procedure.
Sanjay Jin MD, MS
Cardiothoracic Surgeon
[facility]
This operative dictation was created using the [employer] dictation system. Please excuse any grammatical, typographical, or 'sound alike' errors
[2024-09-24] MEDS: LEVOPHED 250 IV (09:12)
--- NOTE | 2024-09-24 09:15 | ITS.CL.TAVR ---
Tap Out Operator - TAVR Report
TAVR PRocedure
Procedure Report:
TRANSCATHETER AORTIC VALVE REPLACEMENT
Date of Procedure: September 24, 2024
Operators: Drs. Jessica Donis and Sanjay Jin MD
PROCEDURE PERFORMED:
1. Successful placement of 26 mm Medtronic Evolut FX+ valve via right femoral artery.
ACCESS:
1. Right common femoral artery, 14 [place] sheath, under ultrasound guidance using a micropuncture kit.
2. Left common femoral vein, 6 [place] sheath, under ultrasound guidance using a micropuncture kit.
Ultrasound was utilized for vascular access. The right femoral artery and left common femoral vein were visualized under ultrasound, and the vessels was patent and arteries were pulsatile. An image was stored permanently in the patient's medical
record. Under direct ultrasound guidance, a 6 [place] sheaths was inserted into the left common femoral vein, and an 8 [place] sheath in the left common femoral artery, respectively, using a micropuncture kit through a modified Seldinger technique.
PREPROCEDURE NYHA CLASS: II
DESCRIPTION OF PROCEDURE: The patient was referred for assessment of severe symptomatic aortic stenosis and following a comprehensive evaluation it was felt that transcatheter aortic valve replacement (TAVR) would be the most appropriate treatment.
Informed consent was obtained prior to the procedure. A 'time-out' was called and the procedural plan was verbally confirmed by anesthesia, surgery, perfusion, and label printer staff.
Venous access were obtained in the left common femoral vein using a micropuncture technique and 6 Fr. sheath was inserted. A 5 Fr. transvenous pacing wire was then advanced to the right ventricle where excellent pacing thresholds were obtained.
We found AP view to allow for coplanar review of the old valve which is what we use for deployment.
Ultrasound guidance was then used to obtain arterial access in the right common femoral artery and a 8 Fr. sheath was inserted. Angiography was performed and the arteriotomy site appeared appropriate for preclosure with two Perclose devices. An 8
[place] sheath was then inserted back into the common femoral artery over a J-tipped guidewire. An AL1 catheter was then advanced to the proximal descending aorta. A Double-curve Lunderquist 0.035' wire was placed in the proximal descending
thoracic aorta to facilitate delivery of a 14 Fr / 13 cm Cook sheath.
An AL1 catheter was then positioned just above the aortic valve and a 0.035' Straight tip wire probed the aortic valve and crossed the stenotic leaflets. The AL1 was then advanced to the mid left ventricle. A long J-wire was advanced to the left
ventricular apex and was followed to the apex with an angled pig-tail catheter. The Double Curve Lunderquist was then positioned in the left ventricular apex. The Evolut Pro+ stent was inspected under fluoroscopy/cine while rotating the stent
delivery system. The stent paddles were within the pocket and no significant crown overlap noted.
The 14 Fr. sheath was exchanged for the Evolut InLine delivery system. The26 mm Evolut Pro+ stent was advanced across the stenotic leaflets. The Evolut FX+ valve was slowly deployed in the leaflet overlap view until the stent flared achieving
contact at 3-4 below the noncoronary cusp. The stent continued to flared achieving contact with the left coronary cusp. WE were happy with valve depth and continued valve deployment with controlled pacing. We transitioned quickly through the
rumble strips on the InLine delivery sheath until the marker band was positioned just below the paddle attachment. Angiography was performed. The valve structure was released from the delivery system when we were happy with the valve position.
Given valve angiographically appeared somewhat constrained at the old valve frame, we performed postdilatation with a 21 mmTRU balloon with good expansion. Post deployment angiography had no aortic insufficiency and a mean gradient of 11 mmHg.
The Evolut FX+ delivery system capsule was reunited to the body of the delivery system. The Evolut InLine sheath was removed and the Perclose knots were advanced to the arteriotomy site resulting in excellent hemostasis.
Fluoro Time (min): 9.9, Dose (mGy): 168.0, DAP (Gy.cm2) : 15.5
CONCLUSIONS:
1. Severe symptomatic aortic stenosis. Successful deployment of a 26 mm Evolut FX+ valve with minimal aortic insufficiency post procedure
2. Successful arteriotomy closure with 2 Perclose devices.
3. Normal LVEDP at 10 mmHg.
Jessica Donis MD, FACC, [facility]
[2024-09-24 09:33] LABS: Glucose - Point of Care 117 mg/dl (70-99)
--- NOTE | 2024-09-24 10:47 | PTCARENOTE ---
Received pt post TAVR. VSS. GCS 15. Neuro checks obtained as ordered. B/L groin sites w/ dressings clean and intact. Pt arrived on levophed at 2 mcg/min. Levophed adjusted per MD order. Will monitor.
[2024-09-24] MEDS: TYLENOL 650 MG PO ×2 (11:46→22:08)
[2024-09-24] MEDS: ANCEF 10 IV ×2 (11:46)
[2024-09-24 13:16] LABS: Glucose - Point of Care 86 mg/dl (70-99)
[2024-09-24] MEDS: ANCEF 5 IV (13:42)
[2024-09-24] MEDS: LEXAPRO PO (13:42)
[2024-09-24] MEDS: LIPITOR 80 MG PO (18:25)
--- NOTE | 2024-09-24 21:37 | PTCARENOTE ---
Rec'd pt at change of shift. Bilateral groin sites CDI. Pt agreed to activity restrictions. AAO*3, VSS, and AV paced on TELE monitor. Pt denies any pain or discomfort. Pt resting with call mistry in reach and plan of care ongoing. Plan of care
ongoing, see MAR and flowchart for full pt care and assessment.
[2024-09-24 22:34] LABS: Glucose - Point of Care 121 mg/dl (70-99)
[2024-09-25] VITALS (7 sets, daily range): BP systolic 134–164; BP diastolic 48–83; PULSE 71; O2SAT 94–99; BMI 28.5
--- NOTE | 2024-09-25 02:17 | W.PN.CT ---
Today's Communication / Plan
-
-POD #1
-Levo in PACU, off in IVU. BB/ARB held post op
-no overnight issues, V paced
-echo today
-current meds: ASA, lipitor, Farxiga, lasix, Toprol 50 mg, valsartan
-IS/OOB
Assessment / Plan
-
Severe s/p : Right trans femoral TAVR in SAVR with a 26 mm Medtronic Evolut FX+ device with post deployment balloon valvuloplasty 09/24/[address] Jin POD #1
post KG: Global hypokinesis. Abnormal (paradoxical) septal motion consistent with RV pacemaker. LVEF 45% by visual estimate. No aortic regurgitation is seen. Peak/mean gradients across the aortic valve are 20/11 mmHg respectively. no pericardial
effusion
1. 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
2. Acute on chronic systolic and diastolic heart failure with hemodynamic instability during TAVR deployment
3. Atrial fibrillation with slow ventricular response
4. Status post permanent pacemaker implantation
5. History of CAD status post CABG and aortic valve replacement
6. Carotid artery stenosis
Subjective
-
Date of Service: September 25, 2024
Objective Data
-
PT 12.7 Sec (11.4-14.6) 09/18/24 08:28
INR 0.93 09/18/24 08:28
APTT 26.5 Sec (23.4-35.0) 09/18/24 08:28
Vital Signs
Vital Signs
Temp Pulse Resp BP Pulse Ox
98.5 F 70 18 116/49 95
09/24/24 22:28 09/24/24 22:28 09/24/24 22:28 09/24/24 22:28 09/24/24 23:46
CT Intake/Output/Weight
09/24/24 09/24/24 09/25/24
06:59 18:59 06:59
Intake Total 1499
Balance 1499
SaO2: 95
Physical Exam
-
General: Awake and Oriented
Cardiovascular: Regular rate & rhythm, No Murmurs and No Rub
Respiratory: Clear and Equal
Incision: Dry and Intact
Extremities: No Edema
groins soft, no hematoma or induration
Data Reviewed
-
Lab Results: Results Reviewed
Medications: Active Meds Reviewed
Chest X-Ray: Report Reviewed
ECG: Report Reviewed
[2024-09-25 04:17] LABS: Hematocrit 35.5 % (37.0-47.0); Hemoglobin 12.4 g/dL (12.0-16.0); Mean Corp Hgb Conc. 34.9 g/dL (33.0-37.0); Mean Corpuscular Hgb 34.1 pg (27.0-31.0); Mean Corpuscular Volume 97.5 fL (81.0-99.0); Mean Platelet Volume 10.6 fL (7.4-10.4); Platelet Count 104 10^3/uL (130-400); Red Blood Cell Count 3.64 10^6/uL (4.20-5.40); Red Cell Dist. Width 14.6 % (11.5-14.5); White Blood Cell Count 5.2 10^3/uL (4.8-10.8)
[2024-09-25 04:43] LABS: Blood Urea Nitrogen 31 mg/dl (7-17); Calcium 9.3 mg/dl (8.4-10.2); Carbon Dioxide 29 mmol/L (22-30); Chloride 105 mmol/L (98-107); Estimated Creatinine Clearance 65 ml/min; Glucose 93 mg/dl (70-99); Sodium 139 mmol/L (135-145); eGFR > 60.00
--- NOTE | 2024-09-25 07:42 | W.PN.ANS.POP ---
Anesthesia Post Operative
- Anesthesia Post Op Note
Vital Signs Stable-See Nursing Note: Yes
Airway Patent: Yes
Adequate Pain Control: Yes
Change in Mental Status: No
Current Postoperative Nausea & Vomiting: No
Anesthesia Complications: No
General Anesthetic Recall: No
Unplanned Admission: No
Post Op Hydration Adequate: Yes
--- NOTE | 2024-09-25 08:15 | W.PN.CARDCBS ---
Today's Communication / Plan
-
Resume valsartan and metoprolol this a.m.
Echocardiogram
Outpatient cardiology follow-up arranged
Discharge later today
Impression / Plan
-
PCP: Dylan Hurst MD
Primary Cardiology: Jessica Donis MD
Impression:
Severe symptomatic aortic stenosis/regurgitation
Valve in valve TAVR s/p #26 mm Evolut FX+ valve (09/24/2024)
s/p tissue AVR 2013
Paroxysmal Afib
Chronic Eliquis OAC
Chronic amiodarone therapy
SSS
s/p Medtronic DC PPM 07/12/23
CAD
s/p CABG with NELSON to LAD seq to Diag-1 and SVG to OM 2013
Right bundle branch block
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
Psoriasis
Hypertension
Hyperlipidemia
Anxiety/depression
B12 deficiency
Left heart catheterization 08/18/2024: LM: Distal tapering. LAD: Mid LOAD PLANNER with competitive flow noted from patent NELSON which skips to D2 and LAD. Circumflex: Proximal OM1 occlusion with competitive flow from patent saphenous vein graft. RCA: 100%
mid occlusion with patent saphenous vein graft PDA. Patent NELSON to LAD and diagonal. SVG to PDA patent. SVG to left circumflex/OM patent with 30 to 40% anastomotic stenosis
Echo 09/25/2024: Pending
Echo 09/24/2024: EF 45%. Mild concentric LVH. Mid to distal anteroseptal moderate hypokinesis. Number 26 mm Medtronic evolute valve in valve TAVR with peak/mean gradient 20/11 mmHg and no paravalvular leak. No pericardial effusion
KG 07/23/2024: EF 55 to 60%. Mild to moderate concentric LVH. Moderately dilated left atrium. Mildly dilated right atrium with irregular large mobile elongated right atrial echodensity present on pacemaker wire in right
atrium. Moderate MR. Bioprosthetic aortic valve with moderate to severe aortic stenosis and moderate to severe regurgitation.
Echo 05/14/2024: EF 45 to 50%. Global hypokinesis. Abnormal paradoxical septal motion consistent with RV pacemaker. Stage I DD. Bioprosthetic aortic valve with peak/mean gradient 42/24 mmHg with moderate to severe MR. Mild to moderate TR with
PAP 28 mmHg
KG 04/08/23: LVEF 45-50%, mild enlarged RV, biatrial enlargement, moderate MR, well seated AVR with mild AR, Moderate TR
Plan:
- Elective admission 09/24/2024 for severe symptomatic aortic stenosis.
- Status post valve in valve TAVR with 26 mm Evolut FX valve 09/24/2024.
- Patient doing well with no events overnight.
- Initially required Levophed postprocedure which was weaned off later that evening.
- Valsartan and metoprolol held 09/24/2024 for postop hypotension. Blood pressure has improved. Would resume both agents this a.m. 09/25/2024
- Postprocedural EKG on 09/25/2024 reviewed by me shows AV paced rhythm
- Chest x-ray no acute cardiopulmonary abnormality
- Echo 09/25/2024 pending
Progress Note - Accountant Controller
Subjective
Date of Service: September 25, 2024
Patient seen and examined. Patient lying in bed getting echocardiogram. Reports felt well overnight and was able to ambulate to bathroom and around the room this morning without difficulty. Denies pain discomfort at procedural site
Objective
Labs:
09/25/24 03:59
09/25/24 03:59
Labs
Hgb 12.4 g/dL (12.0-16.0) 09/25/24 03:59
Hct 35.5 % (37.0-47.0) L 09/25/24 03:59
Plt Count 104 10^3/uL (130-400) L D 09/25/24 03:59
PT 12.7 Sec (11.4-14.6) 09/18/24 08:28
INR 0.93 09/18/24 08:28
APTT 26.5 Sec (23.4-35.0) 09/18/24 08:28
Sodium 139 mmol/L (135-145) 09/25/24 03:59
Potassium 4.0 mmol/L (3.5-5.1) 09/25/24 03:59
BUN 31 mg/dl (7-17) H 09/25/24 03:59
Creatinine 0.9 mg/dL (0.6-1.0) 09/25/24 03:59
Glucose 93 mg/dl (70-99) 09/25/24 03:59
Vital Signs and I&O:
Vital Signs
Temp Pulse Resp BP Pulse Ox
97.7 F 74 20 150/62 96
09/25/24 06:58 09/25/24 06:00 09/25/24 06:58 09/25/24 04:06 09/25/24 06:58
Vital Signs
Temp Pulse Resp BP Pulse Ox
97.7 F 74 20 150/62 96
09/25/24 06:58 09/25/24 06:00 09/25/24 06:58 09/25/24 04:06 09/25/24 06:58
Intake & Output
09/23/24 09/24/24 09/25/24 09/26/24
06:59 06:59 06:59 06:59
Intake Total 1979
Balance 1979
Physical Exam
Physical Exam
GEN: No distress, awake, Ox3
HEENT: supple, anicteric, mmm
LUNGS: CTA, no wheezes/rales
CV: Reg, S1/S2, no murmur, rub or gallop
ABD: soft, BS+, NT/ND
EXT: No edema, clubbing or cyanosis
NEURO: Gross non-focal
SKIN: No rash, warm, dry, pink
[2024-09-25] MEDS: ASPIR LOW (ENTERIC COATED) 81 MG PO (08:37)
[2024-09-25] MEDS: FARXIGA 10 MG PO (08:37)
[2024-09-25] MEDS: LASIX 40 MG PO (08:38)
[2024-09-25] MEDS: DIOVAN 40 MG PO (08:38)
[2024-09-25] MEDS: TOPROL XL 50 MG PO (08:38)
[2024-09-25] MEDS: LEXAPRO 20 MG PO (08:38)
--- NOTE | 2024-09-25 09:26 | W.DCSUMMARY ---
Discharge Summary
Discharge Data
Date of Admission: 09/24/24
Date of Discharge: 09/25/24
-
Pending Results: No
Hospital Course
Primary care physician: Dylan Hurst
Outpatient seamless hosiery knitter: Jessica Donis
Inpatient consultants: [facility]
Procedures:
1. TAVR
Primary Diagnosis:
1. 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
Secondary Diagnoses:
1. Acute on chronic systolic and diastolic heart failure with hemodynamic instability during TAVR deployment
2. Atrial fibrillation with slow ventricular response s/p ablation
3. Status post MDT permanent pacemaker implantation
4. History of CAD status post CABG and aortic valve replacement (2013). Moderate stenosis SVG-PDA
5. Carotid artery stenosis
6. HFpEF (50%)
7. Chronic RBBB
8. HTN
9. HLD\\10. hx osteoarthritis s/p B/L TOSHIA
10. Anxiety
11. Transient post-op hypotension-expected
HPI: 78-year-old female was electively admitted on for TAVR due to prosthetic aortic stenosis and aortic insufficiency.
Hospital course: Patient underwent Right trans femoral TAVR in SAVR #26 mm Medtronic Evolut FX+ device with post deployment balloon valvuloplasty by Drs. Sanjay Jin and Jessica Donis. Patient required Levophed infusion in PACU due to mild
hypotension. Levophed was turned off and patient transition to IVU. Patient will require aspirin only as anticoagulation for TAVR. Bilateral femoral sites intact without edema or bleeding. Morning chest x-ray without congestion. Postop day #1
EKG reported AV dual pacing. Hemoglobin 12.4 creatinine 0.9 on day of discharge. Predischarge TTE reported EF of 45-50%, moderate MR (unchanged form prior) and AV gradients of 32/17mmHg, no AI. Results reviewed with surgeon and patient will
continue on all preop medications including diuretic therapy twice daily. Patient deemed stable for discharge home.
Home medication changes:
NONE
Discharge Plan
-
Patient Disposition: Home (Routine Discharge)
Discharge Diagnosis/Procedures: TF-TAVR
Condition: Good
Diet: Low Cholesterol and 2 Gram Sodium
Activity: As tolerated
Driving Restrictions: No driving for 1 week
Bathing Restrictions: OK to Shower
Others Tests: Follow Up Echocardiogram: 10/23/2024 at 11:20am at [facility]
Other Services: Cardiac Rehab
Wound Care: Please do not apply lotions, creams or powders to groin areas. Please monitor for increased redness, pain, swelling and drainage. If any occur please contact your doctor.
Specialty Instructions: Weigh Daily- Call MD for wt gain/loss 3 lbs overnight/5 lbs in 1 week
Referrals:
CT Transitional Care Nurse [Outside] - in one to two days
(
The Cardiothoracic Transitional Care Nurse will call you to set up a visit in 1-2 days.)
[facility]. Cardiac Rehab [Outside] - 10/30/24 1:00 pm
(Cardiac Rehab Orientation appointment is on 10/30/24 at 1:00 pm
The Cardiac Rehab gym is located on the first floor of the [facility].)
Gabby Leos PA-C [Specified Professional Personl] - 10/14/24 2:40 pm
Dylan Hurst MD [Family Provider] - in four to six weeks (Please make an appointment in four to six weeks. )
Prescriptions:
Continued
atorvastatin 80 mg Tablet
80 mg PO QPM
metoprolol succinate 50 mg Tablet Extended Release 24 Hr
50 mg PO BID
Jardiance 10 mg Tablet
10 mg PO DAILY
valsartan 80 mg tablet
40 mg PO BID
acetaminophen 325 mg Tablet
650 mg PO Q4HPRN PRN (Reason: mild pain or temp > 100.4 F) Qty: 0 0RF
white petrolatum [Hydrophor] 42 % Ointment
1 applic topical DAILY Qty: 100 0RF
Calcium 600 Mg + Vitamin D 800 Mcg
1 tab PO DAILY Qty: 0 0RF
Vitamin B-12
1 tab PO DAILY
aspirin 81 mg tablet,delayed release (DR/EC)
81 mg PO DAILY Qty: 1 0RF
escitalopram oxalate [Lexapro] 20 mg tablet
20 mg PO BID
furosemide [Lasix] 20 mg Tablet
20 mg PO 1600
furosemide [Lasix] 40 mg tablet
40 mg PO DAILY
Discharge Orders:
Discharge Patient (As Directed); Ordered 09/25/24
Ordered By: Rosamaria Munson
Discharge Date and Time
Print Language: GRENADIAN
--- NOTE | 2024-09-25 09:41 | CM ---
Reviewed chart. Met with Mrs. Land to review discharge plans. She states she is feeling well and maybe able to go home soon. She states she ambulated in the hallway. She ambulated 500 feet and went up a flight of stairs today. She states prior to
admission she resides with her spouse in a one story home with four steps to enter. She states she has a full flight of steps to go downstairs to the basement where her studio is located. She states prior to admission she was independent with
ambulation and adls. She states she has a single point cane at home but currently not using the cane. She states she has a prescription plan and uses [facility]. We reviewed a home visit by the Transitional Care Nurse. She is agreeable to a
home visit. She states her spouse will be home to assist in her care if needed. Medical work-up in progress. The discharge plan is to return home with her spouse and a home visit by the Transitional Care Nurse when medically stable.
== END 2024-09-25 13:58 | disposition home or self-care (01) | DRG 266 ==
LOC: IVU 05:29
PROVIDERS: Physician Assistant Medical; ADMITTING PHYSICIAN Thoracic Surgery (Cardiothoracic Vascular Surgery); CONSULT PHYSICIAN Internal Medicine Interventional Cardiology; FAMILY PHYSICIAN Family Medicine
PROC: 02RF38Z Replacement of Aortic Valve with Zooplastic Tissue, Percutaneous Approach (ICD-10-PCS; 2024-09-24)
DX: T82.858A Stenosis of other vascular prosthetic devices, implants and grafts, initial encounter (principal); Z00.6 Encounter for examination for normal comparison and control in clinical research program; I50.43 Acute on chronic combined systolic (congestive) and diastolic (congestive) heart failure; I35.2 Nonrheumatic aortic (valve) stenosis with insufficiency; I11.0 Hypertensive heart disease with heart failure; I25.10 Atherosclerotic heart disease of native coronary artery without angina pectoris; I45.10 Unspecified right bundle-branch block; E78.5 Hyperlipidemia, unspecified; I95.81 Postprocedural hypotension; F41.9 Anxiety disorder, unspecified; I48.0 Paroxysmal atrial fibrillation; L40.9 Psoriasis, unspecified; F32.A Depression, unspecified; E53.8 Deficiency of other specified B group vitamins; E66.9 Obesity, unspecified; E11.9 Type 2 diabetes mellitus without complications; Y83.2 Surgical operation with anastomosis, bypass or graft as the cause of abnormal reaction of the patient, or of later complication, without mention of misadventure at the time of the procedure; Z68.28 Body mass index [BMI] 28.0-28.9, adult; Z79.01 Long term (current) use of anticoagulants; Z79.84 Long term (current) use of oral hypoglycemic drugs; Z79.899 Other long term (current) drug therapy; Z95.0 Presence of cardiac pacemaker; Z95.1 Presence of aortocoronary bypass graft
CPT/HCPCS: 93308; 33361; 36415; 71045; 71046; 80048; 80053; 81003; 82248; 82962; 83036; 83880; 85025; 85027; 85347; 85610; 85730; 86850; 86900; 86901; 87070; 93005; 93321; 93325; C1760; C1769; C1894; Q9967

== ENCOUNTER 2024-11-02 04:22 | Emergency (ER) | payer MEDICARE, SELFPAY ==
[2024-11-02 04:25] VITALS: BP 161/78
--- NOTE | 2024-11-02 06:31 | ED.GENMED ---
History of Present Illness
General
Chief Complaint: Skin Problem
Source: patient
Exam Limitations: none
Time Seen by Provider: 11/02/24 06:17
History of Present Illness
History of Present Illness:
78yoF with history of CHF, atrial fibrillation s/p ablation, coronary artery disease s/p CABG, aortic stenosis s/p TAVR, hypertension, hyperlipidemia, psoriasis presenting with her for evaluation of right ankle pain. Patient has had
intermittent right ankle pain and redness over the past 2 months. She has been treated for cellulitis several times. Symptoms go away while on antibiotics but recur. She was hospitalized in August 2024 for 2 days for the cellulitis. She was on a
trip to [place] recently and returned 5 days ago. She was given a prescription for penicillin while on her vacation which she finished about a week ago. She saw her PCP 3 days ago and was instructed to start dressings with honey. She is here with
worsening pain to her right ankle. Pain is present to the right lateral malleolus and radiates up the leg. Pain seems to be worse at nighttime and improves during the day. She took an oxycodone overnight due to the pain. She has a small area of
redness to her right ankle and admits that the redness has been much worse previously. She denies any wound drainage, fevers, chills.
Past History
Past History
ED Past Medical History: Arrthythmia, CAD, CHF, HTN and Other (Psoriasis)
ED Past Surgical History: Cardiac (Aortic valve replacement, CABG) and Orthopedic (Knee replacement)
Social History
Tobacco: Non-smoker
Alcohol: None
Drug: None
Personal:
Living: with family
Employment: Retired
Family History
Family History: Negative Early CAD
Phy Exam
General Physical Exam
General Presentation: well appearing and no apparent distress
General Skin: warm and dry
General Habitus: normal
General Mental: alert
ENT Exam
ENT Exam: normocephalic
Pulmonary Exam
Pulmonary Exam: no respiratory distress
Neurological Exam
Neurological Exam: alert
[place] Coma Scale
Eye Opening: Spontaneous
Verbal Response: Oriented
Motor Response: Obeys Commands
GCS Total Score: 15
Musculoskeletal Exam
Musculoskeletal Exam: other (R ankle: There is a focal area of redness overlying the lateral malleolus with tenderness. No drainage or fluctuance. No proximal red streaking. ROM intact. 2+ DP pulse.)
Skin Exam
Skin Exam: warm/dry
Psychiatric Exam
Psychiatric Exam: normal mood/affect
Course
Orders/Labs/Results
Orders:
Orders
11/02/24 06:29
CR Ankle - Right Min 3 Views * Urgent
Comment:
Reason For Exam: pain, wound to lateral malleolus
Venous Doppler Lwr Ext Rt [US Periph Venous LOWER Ext RT] Urgent
Comment:
Reason For Exam: R leg pain
11/02/24 07:26
Complete Blood Count/With Diff Urgent
Comprehensive Metabolic Panel Urgent
Abnormal Lab Results
11/02/24
07:26
RBC 4.08 L 10^6/uL
(4.20-5.40)
MCV 100.0 H fL
(81.0-99.0)
MCH 33.6 H pg
(27.0-31.0)
Abs Immat Gran (auto) 0.1 H 10^3/uL
(0-0.05)
Absolute Monos (auto) 0.7 H 10^3/uL
(0.1-0.6)
Immature Gran % 1.6 H %
(0-0.5)
Monocytes % 11.5 H %
(1.7-9.3)
BUN 22 H mg/dl
(7-17)
11/02/24 07:26
11/02/24 07:26
Vital Signs
Initial and Last Documented VS:
Initial Vital Signs
Temp Pulse Resp BP Pulse Ox
98.0 F 74 16 161/78 97
11/02/24 04:25 11/02/24 04:25 11/02/24 04:25 11/02/24 04:25 11/02/24 04:25
Last Documented Vital Signs
Temp Pulse Resp BP Pulse Ox
97.6 F 70 20 126/58 100
11/02/24 07:35 11/02/24 07:35 11/02/24 07:35 11/02/24 08:00 11/02/24 08:45
MDM/Problems Addressed
Differential Diagnosis Includes:
78yoF here with R ankle pain. Hx of recurrent cellulitis x 2 months with several rounds of abx. Recently returned home from a trip to [place]. No trauma. C/o worsening pain to ankle that radiates to the calf. No f/c. She is hypertensive with
otherwise stable vitals. There is a focal wound/redness to the lateral malleolus with tenderness. No evidence of lymphangitis or any convincing evidence of cellulitis. Differential diagnosis includes but is not limited to: cellulitis, pressure
wound, osteomyelitis, musculoskeletal pain, less likely DVT
Initial ED plan: Check CBC, CMP, right ankle x-rays, and venous duplex.
*Critical Care Note
Total Time (30-74mins, 75-104mins- exclusive of procedures): Not Applicable
Update Note
Update Note:
Labs unremarkable including normal white count. Venous duplex negative for DVT. X-rays appear normal per my interpretation. No evidence of fracture or osteomyelitis. No clinical evidence to suggest cellulitis or warrant additional antibiotics.
Patient's pain does seem to be worse at nighttime. Will trial gabapentin QHS. Advised f/u with PCP and podiatry. ED return precautions reviewed. Patient in agreement with plan and was discharged in stable condition.
ED Attending Note
-
Portions of this chart may have been created with voice recognition software.� Occasional wrong word or��sound alike� substitutions may have occurred due to the inherent limitations of voice recognition software.
Discharge Plan
Departure
Patient Disposition: Home (Routine Discharge)
Date of Disposition: 11/02/24
Time of Disposition: 08:47
Patient with high blood pressure during this ER visit?: Yes
Discharge Problem:
Pain in right ankle
Instructions: Muscle, joint, and bone pain - Discharge instructions
Prescriptions:
New
gabapentin 100 mg capsule
100 mg PO HS Qty: 14 0RF
No Action
atorvastatin 80 mg Tablet
80 mg PO QPM
metoprolol succinate 50 mg Tablet Extended Release 24 Hr
50 mg PO BID
valsartan 80 mg tablet
40 mg PO BID
acetaminophen 325 mg Tablet
650 mg PO Q4HPRN PRN (Reason: mild pain or temp > 100.4 F) Qty: 0 0RF
white petrolatum [Hydrophor] 42 % Ointment
1 applic topical DAILY Qty: 100 0RF
Calcium 600 Mg + Vitamin D 800 Mcg
1 tab PO DAILY Qty: 0 0RF
Vitamin B-12
1 tab PO DAILY
aspirin 81 mg tablet,delayed release (DR/EC)
81 mg PO DAILY Qty: 1 0RF
escitalopram oxalate [Lexapro] 20 mg tablet
20 mg PO BID
furosemide [Lasix] 20 mg Tablet
20 mg PO 1600
furosemide [Lasix] 40 mg tablet
40 mg PO DAILY
Referrals:
Dylan Hurst MD [Family Provider, Family Practice]
Maile Galindo DPM [Specified Professional Personl, Podiatry]
Activity Restrictions/Additional Instructions:
Take gabapentin at nighttime to help with pain. Continue honey dressings as instructed by your family doctor.
Please call today to schedule a follow-up with podiatry and your family doctor. Return to the ER with any new or worsening symptoms including spreading redness and fevers.
Interventions
Interventions:
*Risk Screen - Suicide Last Done: 11/02/24 04:25
*General Assessment Last Done: 11/02/24 04:25
*Neglect/Abuse Screening Last Done: 11/02/24 04:25
*ED- Fall Risk Assessment Last Done: 11/02/24 04:25
*ED COVID-19 Vaccine History Last Done: 11/02/24 07:35
ED-Skin Assessment Last Done: 11/02/24 07:35
Discharge Date and Time
Print Language: [email or web address]
[2024-11-02 07:30] VITALS: BMI 29.3
[2024-11-02 07:34] LABS: % Basophils 1.3 % (0-2); % Eosinophils 3.7 % (0-6); % Immature Granulocytes 1.6 % (0-0.5); % Lymphocytes 20.9 % (20.5-51.1); % Monocytes 11.5 % (1.7-9.3); Absolute Basophils 0.1 10^3/uL (0-0.2); Absolute Eosinophils 0.2 10^3/uL (0-0.7); Absolute Immature Granulocytes 0.1 10^3/uL (0-0.05); Absolute Lymphocytes 1.3 10^3/uL (1.2-3.4); Absolute Monocytes 0.7 10^3/uL (0.1-0.6); Absolute Neutrophils 3.8 10^3/uL (1.4-6.5); Hematocrit 40.8 % (37.0-47.0); Hemoglobin 13.7 g/dL (12.0-16.0); Mean Corp Hgb Conc. 33.6 g/dL (33.0-37.0); Mean Corpuscular Hgb 33.6 pg (27.0-31.0); Mean Platelet Volume 9.8 fL (7.4-10.4); Nucleated Red Blood Cells % 0 %; Platelet Count 177 10^3/uL (130-400); Red Blood Cell Count 4.08 10^6/uL (4.20-5.40); Red Cell Dist. Width 13.5 % (11.5-14.5); White Blood Cell Count 6.3 10^3/uL (4.8-10.8)
[2024-11-02 07:35] VITALS: BP 137/114
[2024-11-02 07:44] LABS: ALT (SGPT) 24 U/L (0-35); AST (SGOT) 33 U/L (14-36); Albumin 4.1 g/dl (3.5-5.0); Alkaline Phosphatase 119 U/L (38-126); Blood Urea Nitrogen 22 mg/dl (7-17); Calcium 9.2 mg/dl (8.4-10.2); Carbon Dioxide 30 mmol/L (22-30); Chloride 106 mmol/L (98-107); Estimated Creatinine Clearance 66 ml/min; Glucose 97 mg/dl (70-99); Potassium 4.5 mmol/L (3.5-5.1); Sodium 141 mmol/L (135-145); Total Bilirubin 0.8 mg/dl (0.2-1.3); eGFR > 60.00
[2024-11-02 08:00] VITALS: BP 126/58
== END 2024-11-02 09:05 | disposition home or self-care (01) ==
LOC: EMR 04:22
PROVIDERS: Physician Assistant; EMERGENCY PHYSICIAN Emergency Medicine; FAMILY PHYSICIAN Family Medicine
DX: M25.571 Pain in right ankle and joints of right foot (principal); M79.604 Pain in right leg; L53.9 Erythematous condition, unspecified; I11.0 Hypertensive heart disease with heart failure; I50.9 Heart failure, unspecified; I48.91 Unspecified atrial fibrillation; I25.10 Atherosclerotic heart disease of native coronary artery without angina pectoris; I35.0 Nonrheumatic aortic (valve) stenosis; E78.5 Hyperlipidemia, unspecified; L40.9 Psoriasis, unspecified; Z95.1 Presence of aortocoronary bypass graft; Z95.2 Presence of prosthetic heart valve; Z79.82 Long term (current) use of aspirin
CPT/HCPCS: 99284; 73610; 80053; 85025; 93971

== ENCOUNTER → 2024-11-05 09:07 | Outpatient (REF) | payer MEDICARE, SELFPAY | LOC: RCS 09:07 | PROVIDERS: ATTENDING PHYSICIAN Internal Medicine Interventional Cardiology; FAMILY PHYSICIAN Family Medicine | DX: Z95.2 Presence of prosthetic heart valve (principal) | CPT/HCPCS: 93306 ==

== ENCOUNTER 2024-11-10 11:58 | Outpatient (RCR) | payer MEDICARE, SELFPAY | END 2024-11-10 23:59 | disposition home or self-care (01) | LOC: CRHB 11:58 | PROVIDERS: ATTENDING PHYSICIAN Internal Medicine Interventional Cardiology | DX: I25.10 Atherosclerotic heart disease of native coronary artery without angina pectoris (principal); Z95.2 Presence of prosthetic heart valve; Z95.1 Presence of aortocoronary bypass graft; I50.32 Chronic diastolic (congestive) heart failure | CPT/HCPCS: G0422; G0423 ==

== ENCOUNTER 2024-11-23 09:33 | Emergency (ER) | payer MEDICARE, SELFPAY ==
[2024-11-23 09:45] VITALS: BP 137/68
--- NOTE | 2024-11-23 12:18 | ED.SKININJ ---
HPI-Injury
General
Chief Complaint: Skin Problem
Source: patient and spouse
Exam Limitations: none
Time Seen by Provider: 11/23/24 10:43
Nursing documentation reviewed up to this point in time: agreed with
History of Present Illness-Injury
Initial Injury comments:
The patient is a 79-year-old female with a history of atrial fibrillation on ASA, pacemaker, and recent aortic valve replacement (TAVR) a month and a half ago, presenting with a fall this morning. While getting out of bed at approximately 7 a.m.,
the patient lost balance and fell onto a hardwood floor, landing on her back. She denies loss of consciousness and neck pain but reports pain across her lower back since the fall. Also hit the left back of her head. No LOC, denies headache. Denies
neck pain.
For the past three and a half months, she has had pain in the right lateral ankle, more pronounced at night, which impairs her sleep. She was previously hospitalized for three days due to cellulitis and received intravenous antibiotics, as well
as oral antibiotics during a trip to [place] from October 15 to October 28, 2024. The patient reports that a recent dermatological biopsy from the ankle was normal. The pain is described as severe, especially during this chemicals distiller around 4 a.m.,
affecting sleep and ambulation. Previous treatments with acetaminophen and oxycodone have been ineffective.
Saw patent attorney 3 days ago and ordered MARIE US
Past History
Past History
ED Past Medical History: Arrthythmia, CAD, CHF, HTN and Other (Psoriasis)
ED Past Surgical History: Cardiac (Aortic valve replacement, CABG) and Orthopedic (Knee replacement)
Social History
Tobacco: Non-smoker
Alcohol: None
Drug: None
Personal:
Living: with family
Employment: Retired
Family History
Family History: Negative Early CAD
Review of Systems
Review of Systems
Allergies reviewed?: Yes
All Other Systems: ROS reviewed and negative except as documented in HPI and ROS
Constitutional: Denies fever or chills
Respiratory: Denies trouble breathing
Cardiac: Denies chest pain
ABD/GI: Denies abdominal pain or nausea
: Denies dysuria, frequency or difficulty voiding
Musculoskeletal: Reports other (low back pain); Denies back pain
Skin: Reports other (wound inner right ankle, painful, not improving)
Neurological: Reports no symptoms
Phy Exam
Physical Exam
Physical Exam:
GENERAL: No acute distress. A&Ox3.
CONSTITUTIONAL: Afebrile.
Head: Small hematoma left occipital scalp
EYES: clear, conjunctivae normal
ENMT: moist mucus membranes, Pharynx nl
RESPIRATORY: Regular respirations, nonlabored, lungs clear.
CARDIOVASCULAR: Regular rate and rhythm, no murmurs, no rubs. Both feet warm, pink. PT and DP pulses both palpable, thready both feet, strong with doppler. Brisk capillary refill.
GI: Soft, nontender, normal BS
MUSCULOSKELETAL: Tender across lower back, mid L spine, Moves with ease. Well perfused.
SKIN: Warm, dry, pink 3 mm round opening with yellow eschar in center, no drainage. 2 x 2 cm area of redness, then mild erythema to heel. no lymphangitis. Area very tender
PSYCH: Normal mood and affect. Well kept, interactive and appropriate
NEUROLOGIC: Awake, alert and oriented. Strength equal throughout. No focal neurological deficits
Course
Orders/Labs/Results
Orders:
Orders
11/23/24 12:16
Lumbar Spine Complete, 4 View [CR Lumbar Spine Comp Min 4 Vw*] Urgent
Comment:
Reason For Exam: pain after fall
11/23/24 12:33
Complete Blood Count/With Diff Urgent
Comprehensive Metabolic Panel Urgent
Wound Culture [Wound/Abscess/Other Culture] Urgent
SHAY Source: Ankle
Specimen Description: Right
Date Specimen was Collected: 11/23/24
Time Specimen was Collected: 12:26
Abnormal Lab Results
11/23/24
12:33
MCH 33.4 H pg
(27.0-31.0)
Abs Immat Gran (auto) 0.1 H 10^3/uL
(0-0.05)
Absolute Monos (auto) 0.7 H 10^3/uL
(0.1-0.6)
Immature Gran % 0.7 H %
(0-0.5)
Lymphocytes % 15.6 L %
(20.5-51.1)
Carbon Dioxide 31 H mmol/L
(22-30)
BUN 23 H mg/dl
(7-17)
11/23/24 12:33
11/23/24 12:33
Vital Signs
Initial and Last Documented VS:
Initial Vital Signs
Temp Pulse Resp BP Pulse Ox
98.2 F 77 18 137/68 98
11/23/24 09:45 11/23/24 09:45 11/23/24 09:45 11/23/24 09:45 11/23/24 09:45
Last Documented Vital Signs
Temp Pulse Resp BP Pulse Ox
98.7 F 75 16 132/57 97
11/23/24 13:04 11/23/24 13:04 11/23/24 14:00 11/23/24 13:04 11/23/24 13:04
MDM/Problems Addressed
Differential Diagnosis Includes:
cellulitis
contusion vs strain vs fx spine
MDM/Problems Addressed:
The patient is a 79-year-old female with a history of atrial fibrillation on ASA, pacemaker, and recent aortic valve replacement (TAVR) a month and a half ago, presenting with a fall this morning. While getting out of bed at approximately 7 a.m.,
the patient lost balance and fell onto a hardwood floor, landing on her back. She denies loss of consciousness and neck pain but reports pain across her lower back since the fall. Also hit the left back of her head. No LOC, denies headache. Denies
neck pain.
For the past three and a half months, she has had pain in the right lateral ankle, more pronounced at night, which impairs her sleep. She was previously hospitalized for three days due to cellulitis and received intravenous antibiotics, as well
as oral antibiotics during a trip to [place] from October 15 to October 28, 2024. The patient reports that a recent dermatological biopsy from the ankle was normal. The pain is described as severe, especially during this chemicals distiller around 4 a.m.,
affecting sleep and ambulation. Previous treatments with acetaminophen and oxycodone have been ineffective.
Saw patent attorney 3 days ago and ordered MARIE US
Afebrile, NAD
1:30 p.m.
CBC normal
CMP with no clinically significant abnormality
L-S spine xray initially read by this examiner: There is a compression fracture of T12, most likely old, no new fracture noted. awaiting radiology report.
Plan: Patient states that the area improved much with Keflex in October.
Will order Keflex, Neurontin for pain as it worked before. Keep appt. for MRI and f/u with your Airport Operations Duty Manager as scheduled.
*Pulse Oximetry
SaO2: 98
Oxygen Mode of Delivery: Room air
Patient hypoxic: not evaluated
*Critical Care Note
Total Time (30-74mins, 75-104mins- exclusive of procedures): Not Applicable
ED Attending Note
-
Portions of this chart may have been created with voice recognition software.� Occasional wrong word or��sound alike� substitutions may have occurred due to the inherent limitations of voice recognition software.
Discharge Plan
Departure
Patient Disposition: Home (Routine Discharge)
Date of Disposition: 11/23/24
Time of Disposition: 13:47
Patient with high blood pressure during this ER visit?: No
Condition: Fair
Discharge Problem:
Open wound of right ankle, Cellulitis of right ankle, Low back strain, Fall from bed
Instructions: Low back pain in adults, Wound Care (DC), Cellulitis (Skin Infection), Adult (DC)
Prescriptions:
New
gabapentin [Neurontin] 100 mg capsule
100 mg PO HS PRN (Reason: Pain) Qty: 20 0RF
cephalexin 500 mg capsule
500 mg PO QID 7 Days Qty: 28 0RF
No Action
atorvastatin 80 mg Tablet
80 mg PO QPM
metoprolol succinate 50 mg Tablet Extended Release 24 Hr
50 mg PO BID
valsartan 80 mg tablet
40 mg PO BID
acetaminophen 325 mg Tablet
650 mg PO Q4HPRN PRN (Reason: mild pain or temp > 100.4 F) Qty: 0 0RF
white petrolatum [Hydrophor] 42 % Ointment
1 applic topical DAILY Qty: 100 0RF
Calcium 600 Mg + Vitamin D 800 Mcg
1 tab PO DAILY Qty: 0 0RF
Vitamin B-12
1 tab PO DAILY
aspirin 81 mg tablet,delayed release (DR/EC)
81 mg PO DAILY Qty: 1 0RF
escitalopram oxalate [Lexapro] 20 mg tablet
20 mg PO BID
furosemide [Lasix] 20 mg Tablet
20 mg PO 1600
furosemide [Lasix] 40 mg tablet
40 mg PO DAILY
gabapentin 100 mg capsule
100 mg PO HS Qty: 14 0RF
Referrals:
Dylan Hurst MD [Family Provider, Family Practice]
Sharon Gaona DPM [Specified Professional Personl, Podiatry] - Keep scheduled appt
Activity Restrictions/Additional Instructions:
As we discussed, I sent a prescription to your pharmacy for Neurontin to take at bedtime for pain and also for Keflex antibiotic to take 4 times a day for the next 7 days.
Your lab work is normal
Your lumbar spine x-ray shows no new fractures
Tylenol or ibuprofen as needed for pain
Keep your appointment for your MRI this week and then follow-up with your patent attorney
Keep the wound clean, dry and covered till then
Interventions
Interventions:
*Risk Screen - Suicide Last Done: 11/23/24 14:11
*General Assessment Last Done: 11/23/24 12:36
*Neglect/Abuse Screening Last Done: 11/23/24 14:12
*ED- Fall Risk Assessment Last Done: 11/23/24 12:36
*ED COVID-19 Vaccine History Last Done: 11/23/24 12:36
*Nursing Disposition Last Done: 11/23/24 14:11
ED-Skin Assessment Last Done: 11/23/24 12:36
Discharge Date and Time
Discharge Date/Time: 11/23/24 14:12
Print Language: STATELESS
[2024-11-23 12:36] VITALS: BMI 27.9
[2024-11-23 12:51] LABS: % Basophils 0.4 % (0-2); % Eosinophils 2.1 % (0-6); % Immature Granulocytes 0.7 % (0-0.5); % Lymphocytes 15.6 % (20.5-51.1); % Monocytes 8.3 % (1.7-9.3); % Neutrophils 72.9 % (42.2-75.2); Absolute Eosinophils 0.2 10^3/uL (0-0.7); Absolute Immature Granulocytes 0.1 10^3/uL (0-0.05); Absolute Lymphocytes 1.3 10^3/uL (1.2-3.4); Absolute Monocytes 0.7 10^3/uL (0.1-0.6); Hemoglobin 14.2 g/dL (12.0-16.0); Mean Corp Hgb Conc. 33.8 g/dL (33.0-37.0); Mean Corpuscular Hgb 33.4 pg (27.0-31.0); Mean Corpuscular Volume 98.8 fL (81.0-99.0); Nucleated Red Blood Cells % 0 %; Platelet Count 147 10^3/uL (130-400); Red Blood Cell Count 4.25 10^6/uL (4.20-5.40); Red Cell Dist. Width 13.5 % (11.5-14.5); White Blood Cell Count 8.3 10^3/uL (4.8-10.8)
[2024-11-23 13:04] VITALS: BP 132/57
[2024-11-23 13:19] LABS: ALT (SGPT) 24 U/L (0-35); AST (SGOT) 32 U/L (14-36); Albumin 4.2 g/dl (3.5-5.0); Alkaline Phosphatase 119 U/L (38-126); Blood Urea Nitrogen 23 mg/dl (7-17); Calcium 9.3 mg/dl (8.4-10.2); Carbon Dioxide 31 mmol/L (22-30); Chloride 105 mmol/L (98-107); Estimated Creatinine Clearance 64 ml/min; Glucose 86 mg/dl (70-99); Potassium 4.1 mmol/L (3.5-5.1); Sodium 142 mmol/L (135-145); Total Bilirubin 0.8 mg/dl (0.2-1.3); Total Protein 6.9 g/dl (6.3-8.2); eGFR > 60.00
== END 2024-11-23 14:12 | disposition home or self-care (01) ==
LOC: EMR 09:33
PROVIDERS: Registered Nurse; EMERGENCY PHYSICIAN Emergency Medicine; FAMILY PHYSICIAN Family Medicine
DX: S91.001A Unspecified open wound, right ankle, initial encounter (principal); L03.115 Cellulitis of right lower limb; S39.012A Strain of muscle, fascia and tendon of lower back, initial encounter; W06.XXXA Fall from bed, initial encounter; I25.10 Atherosclerotic heart disease of native coronary artery without angina pectoris; I11.0 Hypertensive heart disease with heart failure; I50.9 Heart failure, unspecified; I48.91 Unspecified atrial fibrillation; Z95.0 Presence of cardiac pacemaker; Z95.1 Presence of aortocoronary bypass graft; Z95.2 Presence of prosthetic heart valve; Z96.659 Presence of unspecified artificial knee joint
CPT/HCPCS: 99283; 72110; 80053; 85025; 87070; 87205

== ENCOUNTER 2024-11-29 18:43 | Emergency (ER) | payer MEDICARE, SELFPAY ==
[2024-11-29 18:47] VITALS: BMI 29.0
[2024-11-29 18:52] VITALS: BP 138/61
[2024-11-29 19:00] VITALS: BP 125/64
[2024-11-29 20:00] VITALS: BP 112/55
[2024-11-29 21:00] VITALS: BP 123/62
[2024-11-29] MEDS: TYLENOL 650 MG PO (21:08)
[2024-11-29 22:47] VITALS: BP 101/56
--- NOTE | 2024-11-29 22:47 | ED.GENMED ---
History of Present Illness
General
Chief Complaint: Fall
Source: patient
Exam Limitations: none
Time Seen by Provider: 11/29/24 19:31
Nursing documentation reviewed up to this point in time: agreed with
History of Present Illness
History of Present Illness:
Patient presents to ED for evaluation after losing balance and falling onto her buttocks, and subsequently hitting back of her head against the corner of a furniture. Patient presents with injury to back of her head, along with back pain. Of note,
patient unfortunately fell recently as well, resulting in head injury as well as back pain. Patient has been taking Tylenol at home with minimal relief in symptoms. Denies urinary or bowel incontinence. Denies leg weakness or numbness. Denies
fever or chills. Denies blurred vision. Denies dizziness. Denies difficulty with speech. Denies chest pain. Denies abdominal pain. Patient does not take any blood thinning medications. Patient does admit to having had couple of glasses of
joselito this evening, prior to falling, when she pivoted while using the walker and missed the couch.
Past History
Past History
ED Past Medical History: Arrthythmia, CAD, CHF, HTN and Other (Psoriasis)
ED Past Surgical History: Cardiac (Aortic valve replacement, CABG) and Orthopedic (Knee replacement)
Social History
Tobacco: Non-smoker
Alcohol: None
Drug: None
Personal:
Living: with family
Employment: Retired
Family History
Family History: Negative Early CAD
Review of Systems
Review of Systems
Allergies reviewed?: Yes
All Other Systems: ROS reviewed and negative except as documented in HPI and ROS
Constitutional: Reports no symptoms
Cardiac: Reports no symptoms; Denies palpitations
ABD/GI: Reports no symptoms; Denies nausea or vomiting
: Reports no symptoms; Denies incontinence
Musculoskeletal: Reports back pain
Skin: Reports other (scalp abrasion/laceration)
Neurological: Reports no symptoms; Denies dizzy or headache
Phy Exam
Physical Exam
Physical Exam:
Physical Exam
General: mild painful distress, not acutely ill. afebrile
Head: abrasion/erythema noted over mid posterior scalp without active bleeding
Neck: supple. normal range of motion.
Heart: s1/s2 regular rate and rhythm
Lungs: no acute respiratory distress. clear bilaterally
Abdomen: normal bowel sounds. not tender.
Back: mild left mid back tenderness to palpation, without ecchymosis/swelling/erythema
Neuro: alert and oriented x 3. no focal neurological deficits
Skin: no rash
Psychiatric: well kept. interactive and cooperative
Extremities: no edema. no calf tenderness.
Course
Orders/Labs/Results
Orders:
Orders
11/29/24 21:02
Acetaminophen [Tylenol] 650 mg PO NOW STA
11/29/24 21:03
CT Head W/o Iv Contrast Urgent
Comment:
Reason For Exam: trauma to back of head
11/29/24 21:33
CR Lumbar Spine Comp Min 4 Vw* Urgent
Comment:
Reason For Exam: left lower back pain after fall
Vital Signs
Initial and Last Documented VS:
Initial Vital Signs
Temp Pulse Resp Pulse Ox
97.9 F 76 10 98
11/29/24 18:48 11/29/24 18:48 11/29/24 18:48 11/29/24 18:48
Last Documented Vital Signs
Temp Pulse Resp BP Pulse Ox
97.9 F 70 14 101/56 93
11/29/24 18:48 11/29/24 22:04 11/29/24 22:04 11/29/24 22:47 11/29/24 22:47
MDM/Problems Addressed
MDM/Problems Addressed:
CT and x-ray report reviewed with patient and family. Patient will be treated conservatively with ice/warm compress, along with Tylenol, as well as PCP follow-up as an outpatient. Patient will return to ED with worsening symptoms. Patient and
spouse agree with treatment plan.
*Pulse Oximetry
SaO2: 93
Oxygen Mode of Delivery: Room air
Patient hypoxic: no
*Critical Care Note
Total Time (30-74mins, 75-104mins- exclusive of procedures): Not Applicable
ED Attending Note
-
Portions of this chart may have been created with voice recognition software.� Occasional wrong word or��sound alike� substitutions may have occurred due to the inherent limitations of voice recognition software.
Discharge Plan
Departure
Patient Disposition: Home (Routine Discharge)
Date of Disposition: 11/29/24
Time of Disposition: 22:47
Patient with high blood pressure during this ER visit?: Yes
Condition: Good
Discharge Problem:
Compression fracture of lumbar vertebra, Head injury
Instructions: Head Injury in Adults (DC), Vertebral Compression Fracture ED
Prescriptions:
No Action
atorvastatin 80 mg Tablet
80 mg PO HS
metoprolol succinate 50 mg Tablet Extended Release 24 Hr
50 mg PO BID
valsartan 80 mg tablet
40 mg PO BID
Calcium 600 Mg + Vitamin D 800 Mcg
1 tab PO DAILY Qty: 0 0RF
Vitamin B-12
1 tab PO DAILY
aspirin 81 mg tablet,delayed release (DR/EC)
81 mg PO DAILY Qty: 1 0RF
escitalopram oxalate [Lexapro] 20 mg tablet
20 mg PO BID
furosemide [Lasix] 20 mg Tablet
20 mg PO HS
furosemide [Lasix] 40 mg tablet
40 mg PO DAILY
cephalexin 500 mg capsule
500 mg PO QID 7 Days Qty: 28 0RF
Patient Comments:
11/30/2024, filled on 11/23/2024 and instructed to take 1 capsule QID for 7 days.
acetaminophen-codeine 300-30 mg Tablet
1 tab PO BID PRN (Reason: mild pain)
acetaminophen [Tylenol Extra Strength] 500 mg Tablet
1,000 mg PO BIDPRN PRN (Reason: mild pain)
triamcinolone acetonide 0.1 % Cream
1 applic TOPICAL BID PRN (Reason: B/L elbows psoriasis)
Eliquis 5 mg Tablet
5 mg PO BID
Jardiance 10 mg Tablet
10 mg PO DAILY
Referrals:
Dylan Hurst MD [Family Provider, Family Practice]
Activity Restrictions/Additional Instructions:
As discussed, please follow-up with your primary care physician tomorrow morning, as scheduled, for reevaluation.
Interventions
Interventions:
*Risk Screen - Suicide Last Done: 11/29/24 18:52
*General Assessment Last Done: 11/29/24 18:52
*Neglect/Abuse Screening Last Done: 11/29/24 18:52
*ED- Fall Risk Assessment Last Done: 11/29/24 18:52
*ED COVID-19 Vaccine History Last Done: 11/29/24 18:52
*Nursing Disposition Last Done: 11/29/24 23:07
ED-Musculoskeletal Assessment Last Done: 11/29/24 18:59
ED- Neurological Assessment Last Done: 11/29/24 18:59
ED-Skin Assessment Last Done: 11/29/24 18:59
Discharge Date and Time
Discharge Date/Time: 11/29/24 23:07
Print Language: SINHALA
== END 2024-11-29 23:07 | disposition home or self-care (01) ==
LOC: EMR 18:43
PROVIDERS: EMERGENCY PHYSICIAN Emergency Medicine; FAMILY PHYSICIAN Family Medicine
DX: S09.90XA Unspecified injury of head, initial encounter (principal); S32.008A Other fracture of unspecified lumbar vertebra, initial encounter for closed fracture; W01.0XXA Fall on same level from slipping, tripping and stumbling without subsequent striking against object, initial encounter; M54.9 Dorsalgia, unspecified; I25.10 Atherosclerotic heart disease of native coronary artery without angina pectoris; I11.0 Hypertensive heart disease with heart failure; I50.9 Heart failure, unspecified; L40.9 Psoriasis, unspecified; Z95.1 Presence of aortocoronary bypass graft; Z95.2 Presence of prosthetic heart valve; Z96.659 Presence of unspecified artificial knee joint
CPT/HCPCS: 99284; 70450; 72110

== ENCOUNTER 2024-11-30 17:15 | Inpatient (IN) | payer MEDICARE, SELFPAY ==
[2024-11-30] VITALS (13 sets, daily range): BP systolic 97–158; BP diastolic 47–88; PULSE 71–77; BMI 28.3; BMI 28.4
[2024-11-30 12:37] LABS: Hematocrit 42.8 % (37.0-47.0); Hemoglobin 14.4 g/dL (12.0-16.0); Mean Corp Hgb Conc. 33.6 g/dL (33.0-37.0); Mean Corpuscular Volume 97.9 fL (81.0-99.0); Nucleated Red Blood Cells % 0 %; Platelet Count 188 10^3/uL (130-400); Red Cell Dist. Width 13.5 % (11.5-14.5)
[2024-11-30 12:58] LABS: ALT (SGPT) 20 U/L (0-35); AST (SGOT) 29 U/L (14-36); Albumin 4.4 g/dl (3.5-5.0); Alkaline Phosphatase 112 U/L (38-126); Blood Urea Nitrogen 35 mg/dl (7-17); Calcium 9.3 mg/dl (8.4-10.2); Carbon Dioxide 30 mmol/L (22-30); Glucose 99 mg/dl (70-99); Total Protein 7.3 g/dl (6.3-8.2); eGFR 51.11
[2024-11-30 13:06] LABS: Chloride 104 mmol/L (98-107); Sodium 141 mmol/L (135-145)
[2024-11-30 14:21] LABS: Potassium 4.1 mmol/L (3.5-5.1)
--- NOTE | 2024-11-30 14:37 | ED.GENMED ---
History of Present Illness
General
Chief Complaint: Blood Pressure Problem
Source: patient
Time Seen by Provider: 11/30/24 14:10
History of Present Illness
History of Present Illness:
79-year-old female on [place] presents for evaluation from family doctor's office. She was seen here yesterday after a fall and was diagnosed with a new compression fracture. She was following up with her doctor today and was complaining of
fatigue and weakness. She was found to be hypotensive in the office with a blood pressure of 60/40. EMS was called and she was brought here. Currently she denies chest pain. Currently she denies lightheadedness. She denies any new leg pain.
She has been eating and drinking. No black or dark or tarry stools. No recent fever. No chest pain. No other complaints
Past History
Past History
ED Past Medical History: Arrthythmia, CAD, CHF, HTN and Other (Psoriasis)
ED Past Surgical History: Cardiac (Aortic valve replacement, CABG) and Orthopedic (Knee replacement)
Social History
Tobacco: Non-smoker
Alcohol: None
Drug: None
Personal:
Living: with family
Employment: Retired
Family History
Family History: Negative Early CAD
Phy Exam
Physical Exam
Physical Exam:
General: Well-appearing female no acute respiratory distress
HEENT: Normocephalic atraumatic
Heart: Regular rate and rhythm lungs: Clear no wheeze
Extremities: No cyanosis or edema
Course
Orders/Labs/Results
Orders:
Orders
11/30/24 12:32
Complete Blood Count/With Diff Urgent
Comprehensive Metabolic Panel Urgent
11/30/24 14:15
Acetaminophen [Tylenol] 650 mg PO NOW STA
11/30/24 14:33
Orthostatic VS- Treatment ONCE
11/30/24 14:35
CR Chest - 2 Views Urgent
Comment:
Reason For Exam: weakness, sob
11/30/24 16:16
0.9% Sodium Chloride 500 ml [Nss] 500 ml IV BOLUS
Abnormal Lab Results
11/30/24
12:32
MCH 33.0 H pg
(27.0-31.0)
Absolute Monos (auto) 1.0 H 10^3/uL
(0.1-0.6)
Lymphocytes % 17.5 L %
(20.5-51.1)
Monocytes % 12.2 H %
(1.7-9.3)
BUN 35 H mg/dl
(7-17)
Creatinine 1.1 H mg/dL
(0.6-1.0)
11/30/24 12:32
11/30/24 12:32
Vital Signs
Initial and Last Documented VS:
Initial Vital Signs
Temp Pulse Resp BP Pulse Ox
98 F 70 16 97/48 98
11/30/24 12:28 11/30/24 12:28 11/30/24 12:28 11/30/24 12:28 11/30/24 12:28
Last Documented Vital Signs
Temp Pulse Resp BP Pulse Ox
98 F 73 23 118/70 98
11/30/24 12:28 11/30/24 14:30 11/30/24 14:30 11/30/24 14:00 11/30/24 14:39
MDM/Problems Addressed
Differential Diagnosis Includes:
Patient was hypotensive at the family doctor's office. She was here yesterday and has a compression fracture. Initial blood pressure normotensive here. Will check orthostatics and labs.
*Pulse Oximetry
SaO2: 98
Oxygen Mode of Delivery: Room air
Patient hypoxic: no
*Critical Care Note
Total Time (30-74mins, 75-104mins- exclusive of procedures): Not Applicable
Update Note
Update Note:
Patient does drop slightly upon standing with her blood pressure. She may be getting orthostatic when she stands causing her to be weak and falling. She was here yesterday and discharged and sent back by family doctor today secondary to low blood
pressure readings in the office. Fluids ordered will admit to hospital for further evaluation
ED Attending Note
-
Portions of this chart may have been created with voice recognition software.� Occasional wrong word or��sound alike� substitutions may have occurred due to the inherent limitations of voice recognition software.
Discharge Plan
Departure
Patient Disposition: Home (Routine Discharge)
Date of Disposition: 11/30/24
Time of Disposition: 16:19
Patient with high blood pressure during this ER visit?: No
Discharge Problem:
Orthostatic hypotension, Compression fracture
Prescriptions:
No Action
atorvastatin 80 mg Tablet
80 mg PO QPM
metoprolol succinate 50 mg Tablet Extended Release 24 Hr
50 mg PO BID
valsartan 80 mg tablet
40 mg PO BID
acetaminophen 325 mg Tablet
650 mg PO Q4HPRN PRN (Reason: mild pain or temp > 100.4 F) Qty: 0 0RF
white petrolatum [Hydrophor] 42 % Ointment
1 applic topical DAILY Qty: 100 0RF
Calcium 600 Mg + Vitamin D 800 Mcg
1 tab PO DAILY Qty: 0 0RF
Vitamin B-12
1 tab PO DAILY
aspirin 81 mg tablet,delayed release (DR/EC)
81 mg PO DAILY Qty: 1 0RF
escitalopram oxalate [Lexapro] 20 mg tablet
20 mg PO BID
furosemide [Lasix] 20 mg Tablet
20 mg PO 1600
furosemide [Lasix] 40 mg tablet
40 mg PO DAILY
gabapentin 100 mg capsule
100 mg PO HS Qty: 14 0RF
gabapentin [Neurontin] 100 mg capsule
100 mg PO HS PRN (Reason: Pain) Qty: 20 0RF
cephalexin 500 mg capsule
500 mg PO QID 7 Days Qty: 28 0RF
Referrals:
Dylan Hurst MD [Family Provider, Family Practice]
Interventions
Interventions:
*Risk Screen - Suicide Last Done: 11/30/24 12:29
*General Assessment Last Done: 11/30/24 13:45
*Neglect/Abuse Screening Last Done: 11/30/24 12:29
*ED- Fall Risk Assessment Last Done: 11/30/24 13:45
*ED COVID-19 Vaccine History Last Done: 11/30/24 13:45
ED- Cardiac Assessment Last Done: 11/30/24 13:46
ED- Neurological Assessment Last Done: 11/30/24 13:46
ED- Pulmonary Assessment Last Done: 11/30/24 13:46
Discharge Date and Time
Print Language: SWEDISH
[2024-11-30] MEDS: TYLENOL 650 MG PO (14:40)
[2024-11-30] MEDS: NSS 500 IV (16:20)
--- NOTE | 2024-11-30 16:51 | HPS.HSE ---
Family Physician
-
Family Physician: Dylan Hurst
Chief Complaint
-
low blood pressure
History of Present Illness
79-year-old female past medical history of systolic suggestive of heart failure, atrial fibrillation with permanent pacemaker, CAD status post CABG, aortic valve replacement, carotid artery stenosis, chronic grade 1 dementia, hypertension,
hyperlipidemia, osteoarthritis, anxiety, presenting from doctors office for hypotension.
She was seen here yesterday after a fall and was diagnosed with a new compression fracture. She has had a few falls recently due to balance dysfunction. She followed up with her doctor today and was complaining of fatigue and weakness. She was
found to be hypotensive with blood pressure of 60/40. EMS was called and she was brought here. She denies any chest pain. Denies lightheadedness. Denies leg pain. She has been eating and drinking. Denies black stool or blood in stool. Denies
fever. Denies chest pain. Denies any other complaints.
She has had cellulitis of the right ankle intermittently a few times. She is currently finishing a 1 week course of Keflex which completes tomorrow. Denies any fevers or chills.
No recent changes to her cardiac medications apart from increase in Lasix in August. She was also recently started back on Eliquis due to recurrence of atrial fibrillation.
Drinks a cocktail every day. Former smoker.
Medical History
Past Medical History
Past Medical History: Reports Other (systolic suggestive of heart failure, atrial fibrillation with permanent pacemaker, CAD status post CABG, aortic valve replacement, carotid artery stenosis, chronic grade 1 dementia, hypertension, hyperlipidemia,
osteoarthritis, anxiety, )
Past Surgical History: Reports Other (Cardiac (Aortic valve replacement, CABG) and Orthopedic (Knee replacement))
Social History
Tobacco: Former Smoker
Alcohol: Daily
Drug: None
Family History
Family History: Not pertinent
Allergies / Home Medications
Allergies reflects when Allergies were last updated in [facility].
Home Medications with original date entered in [facility]
Allergy/Medication List:
Allergies
Allergy/AdvReac Type Severity Reaction Status Date / Time
No Known Allergies Allergy Verified 11/02/24 04:25
Home Medications
atorvastatin 80 mg tablet 80 mg PO QPM High Cholesterol 02/02/23
metoprolol succinate 50 mg tablet,extended release 24 hr 50 mg PO BID Blood Pressure 02/02/23
valsartan 80 mg tablet 40 mg PO BID Blood pressure 09/25/23
Calcium 600 Mg + Vitamin D 800 Mcg 1 tab PO DAILY Supplement ##0 08/12/24
acetaminophen 325 mg tablet 650 mg (2 x 325 mg) PO Q4HPRN PRN mild pain or temp > 100.4 F #0 tabs 08/12/24
white petrolatum 42 % topical ointment (Hydrophor) 1 applic topical DAILY Skin issues #100 grams 08/12/24
Vitamin B-12 1 tab PO DAILY Supplement 08/17/24
aspirin 81 mg tablet,delayed release 81 mg PO DAILY #1 tab 08/17/24
escitalopram oxalate 20 mg tablet (Lexapro) 20 mg PO BID Mental Health/Anxiety 08/25/24
furosemide 20 mg tablet (Lasix) 20 mg PO 1600 Fluid Retention/Swelling 09/17/24
furosemide 40 mg tablet (Lasix) 40 mg PO DAILY Fluid Retention/Swelling 09/17/24
gabapentin 100 mg capsule 100 mg PO HS #14 caps 11/02/24
cephalexin 500 mg capsule 500 mg PO QID 7 days #28 caps 11/23/24
gabapentin 100 mg capsule (Neurontin) 100 mg PO HS PRN Pain #20 caps 11/23/24
Review of Systems
-
Constitutional: Reports No Symptoms
EENT: Reports No Symptoms
Respiratory: Reports No Symptoms
Cardiac: Reports No Symptoms
Abdomen/GI: Reports No Symptoms
: Reports No Symptoms
Musculoskeletal: Reports No Symptoms
Skin: Reports No Symptoms
Neurological: Reports No Symptoms
Endocrine: Reports No Symptoms
Hematologic/Lymphatic: Reports No Symptoms
Psych: Reports No Symptoms
Physical Exam
Vital Signs
Vital Signs
Temp Pulse Resp BP Pulse Ox
98 F 70 23 122/64 96
11/30/24 12:28 11/30/24 15:15 11/30/24 15:15 11/30/24 15:00 11/30/24 15:15
Physical Exam
General: Well Developed, Well Nourished and No Apparent Distress
HEENT: NormoCephalic, Moist mucous membranes and Atraumatic
Respiratory: Clear
Cardiac: S1/S2 and Regular Rhythm; No Murmur or Rub
GI: Soft, Non Tender, Non Distended and Normal Bowel Sounds; No Organomegaly
Rectal: Deferred by Provider
Musculoskeletal: No Clubbing, No Cyanosis and No Edema
Skin: No Rash
Neuro: Nonfocal/grossly intact
Laboratory Results
-
11/30/24 12:32
11/30/24 12:32
Laboratory Results
Total Bilirubin 0.8 mg/dl (0.2-1.3) 11/30/24 12:32
AST 29 U/L (14-36) 11/30/24 12:32
ALT 20 U/L (0-35) 11/30/24 12:32
Alkaline Phosphatase 112 U/L (38-126) 11/30/24 12:32
Data Reviewed
-
Lab Data: Labs Reviewed by me
Old Records: Reviewed
Impression/Plan
-
IMPRESSION:
PLAN:
# Hypotension secondary to hypovolemia from anti-hypertensive/cardiac medications
- Orthostatics negative
-Chest x-ray negative, urinalysis negative
- IV fluids given
- Hold beta-tanesha, Lasix, SGLT2 inhibitor, valsartan for now, will need medication titration
-Check orthostatics daily
# Acute kidney injury
-Continue IV fluids
- Hold valsartan
# Cellulitis of right lower ankle
- Finishes Keflex tomorrow
Fall yesterday likely secondary to orthostatic hypotension resulting in L2 compression fracture
Chronic systolic/diastolic heart failure
- Hold Lasix, SGLT2 inhibitor,
Paroxysmal atrial fibrillation post ablation with pacemaker
- Hold metoprolol
CAD status post CABG
- Continue aspirin, statin
Aortic valve replacement
Carotid artery stenosis
Chronic right bundle branch block
Essential hypertension
- Hold valsartan
Hyperlipidemia
Osteoarthritis
- Continue gabapentin
Anxiety/depression
- Continue Lexapro
Full code
DVT prophylaxis�Eliquis
Regular diet
--- NOTE | 2024-11-30 17:05 | PHANOTE ---
Addendum entered by Chaka Andres 11/30/24 19:28:
11/30/2024, pt.'s spouse was able to confirm that pt. is not taking Gabapentin.
Original Note:
11/30/2024, pt. does not know if they are taking Gabapentin or not; pt.'s spouse manages her meds.; I attempted to call spouse but was unsuccessful; could not confirm this med.
[2024-11-30] MEDS: NSS 1000 IV (18:24)
[2024-11-30] MEDS: ELIQUIS 5 MG PO (20:07)
[2024-11-30] MEDS: LIPITOR 80 MG PO (20:09)
[2024-11-30] MEDS: KEFLEX 500 MG PO (21:00)
[2024-11-30] MEDS: TYLENOL 1000 MG PO (21:49)
[2024-12-01] VITALS (8 sets, daily range): BP systolic 93–167; BP diastolic 49–80; PULSE 73–86; BMI 28.5
[2024-12-01] MEDS: TYLENOL #3 1 TABLET PO (00:15)
[2024-12-01] MEDS: ROXICODONE 5 MG PO ×2 (02:15→20:18)
[2024-12-01] MEDS: NSS 1000 IV (05:33)
[2024-12-01] MEDS: ASPIR LOW (ENTERIC COATED) 81 MG PO (08:06)
[2024-12-01] MEDS: LEXAPRO 20 MG PO (08:06)
[2024-12-01] MEDS: KEFLEX 500 MG PO (08:06)
[2024-12-01] MEDS: ELIQUIS 5 MG PO ×2 (08:06→20:16)
[2024-12-01] MEDS: TRIAMCINOLONE ACETONIDE 0.1% CREAM 1 APPLIC TOPICAL (08:07)
[2024-12-01 08:12] LABS: Hematocrit 36.8 % (37.0-47.0); Hemoglobin 12.2 g/dL (12.0-16.0); Mean Corp Hgb Conc. 33.2 g/dL (33.0-37.0); Mean Corpuscular Volume 99.2 fL (81.0-99.0); Nucleated Red Blood Cells % 0 %; Platelet Count 147 10^3/uL (130-400); Red Cell Dist. Width 13.5 % (11.5-14.5)
[2024-12-01 08:28] LABS: ALT (SGPT) 16 U/L (0-35); AST (SGOT) 25 U/L (14-36); Albumin 3.5 g/dl (3.5-5.0); Alkaline Phosphatase 104 U/L (38-126); Blood Urea Nitrogen 31 mg/dl (7-17); Calcium 8.5 mg/dl (8.4-10.2); Carbon Dioxide 28 mmol/L (22-30); Chloride 108 mmol/L (98-107); Estimated Creatinine Clearance 57 ml/min; Glucose 83 mg/dl (70-99); Potassium 4.0 mmol/L (3.5-5.1); Sodium 140 mmol/L (135-145); Total Protein 5.9 g/dl (6.3-8.2); eGFR 57.31
--- NOTE | 2024-12-01 09:50 | W.PN.HOSP.TC ---
Today's Communication/Plan
-
see bold
Assessment / Plan
Assessment / Plan
HPI: 79-year-old female past medical history of systolic suggestive of heart failure, atrial fibrillation with permanent pacemaker, CAD status post CABG, aortic valve replacement, carotid artery stenosis, chronic grade 1 dementia, hypertension,
hyperlipidemia, osteoarthritis, anxiety, presenting from doctors office for hypotension. She was seen here yesterday after a fall and was diagnosed with a new compression fracture. She has had a few falls recently due to balance dysfunction. She
followed up with her doctor today and was complaining of fatigue and weakness. She was found to be hypotensive with blood pressure of 60/40. EMS was called and she was brought here. She denies any chest pain. Denies lightheadedness. Denies leg
pain. She has been eating and drinking. Denies black stool or blood in stool. Denies fever. Denies chest pain. Denies any other complaints.
She has had cellulitis of the right ankle intermittently a few times. She is currently finishing a 1 week course of Keflex which completes tomorrow. Denies any fevers or chills.
No recent changes to her cardiac medications apart from increase in Lasix in August. She was also recently started back on Eliquis due to recurrence of atrial fibrillation.
Drinks a cocktail every day. Former smoker.
# Hypotension secondary to hypovolemia from anti-hypertensive/cardiac medications
Orthostatics negative
Chest x-ray negative, urinalysis negative
Hypotension resolved, will monitor off IV fluids
Continue holding beta-tanesha, Lasix, SGLT2 inhibitor, valsartan for now, will need medication titration
Consult PT/OT
# Acute kidney injury
Resolved, stop IV fluids after current bag
Continue holding valsartan
# Cellulitis of right lower ankle
Last dose of Keflex today
Wound care nurse reports mucopurulent discharge
Consult podiatry, check ABIs, check right ankle x-ray, treat with IV Ancef
#Fall yesterday likely secondary to orthostatic hypotension
#L2 compression fracture
Continue Tylenol, add lidocaine patch, add oxycodone as needed
Chronic systolic/diastolic heart failure
- Hold Lasix, SGLT2 inhibitor
Essential hypertension
- Hold valsartan
Paroxysmal atrial fibrillation post ablation with pacemaker
- Resume metoprolol at decreased dose with hold parameters, continue Eliquis
CAD status post CABG
- Continue aspirin, statin
Aortic valve replacement
Carotid artery stenosis
Chronic right bundle branch block
Hyperlipidemia
Osteoarthritis
- Continue gabapentin
Anxiety/depression
- Continue Lexapro
DVT prophylaxis�Eliquis
Full code
Total time spent to see the patient on the floor, examine the patient, review data and lab results, discuss treatment plan with patient, nursing staff around 51 minutes.
Physical Exam
General: No acute distress
HEENT: Normocephalic, Atraumatic, EOMI, MMM
Respiratory: Clear to Auscultation bilaterally
Cardiac: Normal S1/S2, Regular Rate and Rhythm
GI: Soft, Nontender, Nondistended, Normal Bowel Sounds
Extremities: No Clubbing, Cyanosis, or Edema
Neuro: Nonfocal/Grossly Intact
Psych: Calm, Cooperative
Derm: No Visible lesions
Anticipated Discharge: 24 - 48 hours
Subjective/Interval History
-
Date of Service: December 01, 2024
Dizziness resolved. Complains of lower back pain from her fall. She also has right ankle pain for her chronic right ankle wound. Denies chest pain, denies shortness of breath. No fever, no vomiting.
Objective Data
-
Labs:
Laboratory Results
12/01/24
06:27
WBC 5.7
Hgb 12.2
Hct 36.8 L
Plt Count 147 D
Sodium 140
Potassium 4.0
Chloride 108 H
Carbon Dioxide 28
BUN 31 H
Creatinine 1.0
Glucose 83
Calcium 8.5
Total Bilirubin 0.7
AST 25
ALT 16
Alkaline Phosphatase 104
Vital Signs:
Vital Signs
Temp Pulse Resp BP Pulse Ox
98.3 F 75 16 123/63 97
12/01/24 07:00 12/01/24 07:00 12/01/24 07:00 12/01/24 07:00 12/01/24 08:00
I&O
11/30/24 12/01/24 12/02/24
06:59 06:59 06:59
Intake Total 480 / 480
Balance 480 / 480
--- NOTE | 2024-12-01 10:53 | CM ---
Patient seen bedside, initial assessment completed. Patient is a 79-year-old female past medical history of systolic suggestive of heart failure, atrial fibrillation with permanent pacemaker, CAD status post CABG, aortic valve replacement, carotid
artery stenosis, chronic grade 1 dementia, hypertension, hyperlipidemia, osteoarthritis, anxiety, presenting from doctors office for hypotension.
Patient resides w/ spouse in a single story home, 4 steps to enter. Patient ambulates w/ a cane, no other DME reported. Denies SNF/HC hx. Patient engaged in OP therapy a few years ago. Patient had heart surgery in September at [facility], was supposed to
start cardiac rehab last Saturday.
Address, point of contact and insurance verified
PCP: Dylan Hurst
Pharmacy: [facility]
PT/OT eval ordered, will watch for recommendations
Plan: CM will cont to follow for d/c planning
[2024-12-01] MEDS: LIDOCAINE 4% PATCH 1 PATCH TOPICAL (11:12)
--- NOTE | 2024-12-01 12:01 | WOUNDNOTE ---
WON RN note: Patient admitted with orthostatic hypotension and compression fracture.
See H&P for complete history.
PMH: From H&P report: Paroxysmal atrial fibrillation,essential hypertension,coronary artery disease
Anxiety/depression, B12 deficiency, Carotid artery stenosis
coronary artery disease status post quadruple bypass and aortic valve replacement now with leaky valve (moderate to severe aortic regurgitation, mild to moderate tricuspid regurgitation)
History of congestive heart failure with mildly reduced ejection fraction
Past Surgical History: CABG with aortic valve replacement, Pacemaker placement
Wound Location and type/assessment: Patient known to service, last seen 08/11/24 for R ankle intact scab and cellulitis. Today asked to see patient by nurse Easley for same R ankle, now open and draining pus, redness surrounding, suspect abscess. +
palpable pedal pulse, heel intact. Patient reports her accidentally scratched her with his toe nail several months ago. Patient said she goes to a land classifier for psoriasis issues, and derm looked at ankle, unable to figure out solution.
Heels and sacrum intact per nurse Easley. Was going to see Rake Operator Dr. Gaona but then had to cancel since admitted to hospital.
Appetite:Good.
Pressure redistribution devices in place: Accumax, is ad lambert, sitting in recliner chair.
Plan: Swab wound culture and local wound care done to R ankle. Confirmed with Dr. Muñiz wound care and culture orders. Recommended Podiatry follow up for R ankle, Dr. Muñiz placed consult.
Updated nurse Easley, care plan and will follow as needed.
Note to case management of equipment requested for discharge: TBD.
[2024-12-01] MEDS: ANCEF 5 IV ×2 (12:04→20:17)
[2024-12-01] MEDS: TYLENOL 1000 MG PO (12:20)
--- NOTE | 2024-12-01 13:25 | W.PN.UPDATE ---
Update Note
Progress Note Update
Patient seen at bedside for chronic right lateral malleolar wound, x-rays negative for ossesous involvment, will defer managment to Dr Gaona
-No acute surgical needs
-Patient will benefit form work up including:
MARIE/PVR with segmental pressures
MRI Right Ankle
ABx per cultures, taken bedside
-Given chronic wound outpatient work up is approriate
-Recommend local wound care and possible home wound care
Full consult to follow
[2024-12-01] MEDS: NSS IV (14:37)
[2024-12-01] MEDS: TOPROL XL 25 MG PO (16:55)
[2024-12-01] MEDS: REMOVE LIDOCAINE PATCH 1 PATCH REMOVE (20:17)
[2024-12-01] MEDS: LIPITOR 80 MG PO (20:17)
[2024-12-02] VITALS (7 sets, daily range): BP systolic 113–139; BP diastolic 49–78; BMI 29.0
[2024-12-02] MEDS: NSS IV (01:01)
[2024-12-02] MEDS: ROXICODONE 5 MG PO ×3 (01:01→20:23)
[2024-12-02] MEDS: ANCEF 5 IV ×3 (04:39→20:03)
[2024-12-02] MEDS: TYLENOL 1000 MG PO ×2 (04:43→11:32)
--- NOTE | 2024-12-02 07:44 | W.PN.UPDATE ---
Update Note
Progress Note Update
In setting of chronic wound with diminished arterial supply and MARIE of 0.56 to right lower extremity, will defer to vascular intervention/optimization
no surgical intervention given negative radiographs
Will sign off, reassess likely outpatient with Malamed or Myself after vascular intervention
Recommend wound care
[2024-12-02] MEDS: LIDOCAINE 4% PATCH 1 PATCH TOPICAL (08:10)
[2024-12-02] MEDS: ELIQUIS 5 MG PO (08:10)
[2024-12-02] MEDS: TOPROL XL 25 MG PO ×2 (08:10→20:04)
[2024-12-02] MEDS: LEXAPRO 20 MG PO (08:10)
[2024-12-02] MEDS: ASPIR LOW (ENTERIC COATED) 81 MG PO (08:10)
[2024-12-02] MEDS: TRIAMCINOLONE ACETONIDE 0.1% CREAM 1 APPLIC TOPICAL (08:11)
--- NOTE | 2024-12-02 08:59 | W.PN.HOSP.TC ---
Today's Communication/Plan
-
For right lower extremity angiogram tomorrow
Assessment / Plan
Assessment / Plan
HPI: 79-year-old female past medical history of systolic suggestive of heart failure, atrial fibrillation with permanent pacemaker, CAD status post CABG, aortic valve replacement, carotid artery stenosis, chronic grade 1 dementia, hypertension,
hyperlipidemia, osteoarthritis, anxiety, presenting from doctors office for hypotension. She was seen here yesterday after a fall and was diagnosed with a new compression fracture. She has had a few falls recently due to balance dysfunction. She
followed up with her doctor today and was complaining of fatigue and weakness. She was found to be hypotensive with blood pressure of 60/40. EMS was called and she was brought here. She denies any chest pain. Denies lightheadedness. Denies leg
pain. She has been eating and drinking. Denies black stool or blood in stool. Denies fever. Denies chest pain. Denies any other complaints.
She has had cellulitis of the right ankle intermittently a few times. She is currently finishing a 1 week course of Keflex which completes tomorrow. Denies any fevers or chills.
No recent changes to her cardiac medications apart from increase in Lasix in August. She was also recently started back on Eliquis due to recurrence of atrial fibrillation.
Drinks a cocktail every day. Former smoker.
# Hypotension secondary to hypovolemia from anti-hypertensive/cardiac medications
Orthostatics negative. Chest x-ray negative, urinalysis negative
Hypotension resolved off of IV fluids
Continue holding Lasix, SGLT2 inhibitor, valsartan for now, will need medication titration
PT/OT recommends home care
# Acute kidney injury
Resolved with IV fluids
Continue holding valsartan
#Cellulitis of right lower ankle
#Peripheral artery disease
Last dose of Keflex sched 12/01
Wound care nurse reports mucopurulent discharge
Appreciate podiatry input, no urgent surgical intervention recommended (R ankle XR neg for cortical bony destructive process)
Recommend patient follows up with her usual outpatient buncher operator, Dr. Sharon Gaona
Give IV Ancef while in the hospital, anticipate she will need Keflex upon discharge
Appreciate vascular surgery input, for right lower extremity angiogram tomorrow (R MARIE moderately reduced at 0.56)
#Fall yesterday likely secondary to orthostatic hypotension
#L2 compression fracture
Continue Tylenol, add lidocaine patch, add oxycodone as needed
Chronic systolic/diastolic heart failure
- Hold Lasix, SGLT2 inhibitor
Essential hypertension
- Hold valsartan
Paroxysmal atrial fibrillation post ablation with pacemaker
- Resumed metoprolol at decreased dose at 25 mg BID with hold parameters, hold Eliquis for right lower extremity angiogram
CAD status post CABG
- Continue aspirin, statin
Aortic valve replacement
Carotid artery stenosis
Chronic right bundle branch block
Hyperlipidemia
Osteoarthritis
- Continue gabapentin
Anxiety/depression
- Continue Lexapro
DVT prophylaxis� SCDs, holding Eliquis for right lower extremity angiogram
Full code
Total time spent to see the patient on the floor, examine the patient, review data and lab results, discuss treatment plan with patient, nursing staff around 51 minutes.
Physical Exam
General: No acute distress
HEENT: Normocephalic, Atraumatic, EOMI, MMM
Respiratory: Clear to Auscultation bilaterally
Cardiac: Normal S1/S2, Regular Rate and Rhythm
GI: Soft, Nontender, Nondistended, Normal Bowel Sounds
Extremities: No Clubbing, Cyanosis, or Edema
Neuro: Nonfocal/Grossly Intact
Psych: Calm, Cooperative
Derm:
Right ankle wound dressed
Anticipated Discharge: 24 - 48 hours
Subjective/Interval History
-
Date of Service: December 02, 2024
Patient reports feeling better. No recurrence of lightheadedness or dizziness. Her lower back pain is improved. No fever, no vomiting.
Objective Data
-
Vital Signs:
Vital Signs
Temp Pulse Resp BP Pulse Ox
97.5 F 73 18 134/57 95
12/02/24 03:53 12/02/24 03:53 12/02/24 03:53 12/02/24 03:53 12/02/24 03:53
I&O
12/01/24 12/02/24 12/03/24
06:59 06:59 06:59
Intake Total 480 / 480 1730 / 1730
Balance 480 / 480 1730 / 1730
--- NOTE | 2024-12-02 10:57 | WOUNDNOTE ---
RYAN RN NOTE: Reviewed Dr. Davila's report and arterial study. TBI is 0.20 with monophasic WF, vascular consult recommended and MRI by Podiatry. Dr Muñiz made aware of the above. Wound culture so far negative. Will follow along and wound care can
assist as needed.
--- NOTE | 2024-12-02 16:08 | CON.VAS ---
Addendum entered and electronically signed by Helder Barclay III, MD 12/03/24 13:47:
This patient was seen and examined in collaboration with JOANNE Love and Blanche. I agree with the history and physical exam as well as the assessment and plan. I have the following additions:
History reviewed
Lower extremity arterial studies personally reviewed
Chronic right lateral ankle ulcer
Nonpalpable pedal pulses
Plan is for right lower extremity arteriogram today. Technical aspects of the procedure were discussed with her in detail. The benefits and rationale for this approach were discussed with her in detail. Operative risks were discussed with her in
detail including but not limited to arterial access site injury, bleeding, infection, contrast nephropathy, distal embolization and the inability to successfully complete endovascular intervention. She expressed clear understanding of our
conversation and agrees to proceed with surgery as detailed above.
Signed:
Helder Barclay III, MD
Vascular Surgery
[facility]
Original Note:
Consultation
Consultation Request
Date/Time Consultation Performed: 12/02/24 1530
Requesting Provider: Hospitalist
Performing Provider: Sherine Souza NP-C for Helder Barclay III, MD
Reason for Consultation: RLE ankle wound
Medical History
-
Chief Complaint: Hypotension, right lateral ankle wound
History of Present Illness:
This is a 79 year old female with significant pas medical history for systolic suggestive of heart failure, atrial fibrillation with permanent pacemaker, CAD status post CABG, aortic valve replacement, carotid artery stenosis, hypertension,
hyperlipidemia, osteoarthritis, and anxiety who presented to [facility] on 11/30/2024 with reports of syncope and fall. She was subsequently admitted for management of hypotension, which is now resolved. However, she notes chronic
non-healing right lateral ankle wound that has erythema and purulent drainage. Of note she is known to our service for surveillance of her carotid stenosis, but has failed to follow up in the outpatient setting. She is not certain how wound started
but her and suspect one night he must have scratched her with his toenails during sleep because when they awoke she had a new cut on her ankle and blood on the sheets. They believe this was late July/early August of 2024. Since onset she
has seen her PCP at least three times and was evaluated in our ED twice for various cellulitis management of the right ankle wound. She reports she has completed 5 PO antibiotics treatments with no resolution of wound or complete resolution of
cellulitis. She denies prior peripheral artery intervention or claudication/rest pain. Does endorse tobacco history, she quit in and reports 15 year smoking history of one pack per day. Currently comfortable, unless wound is palpated.
Arterial ultrasound obtained and resulted demonstrated, right MARIE moderately reduced at 0.56. TBI severely reduced at 0.20. and ultrasound evdience of infrapopliteal disease.
Past Medical History
Past Medical History: Other (systolic suggestive of heart failure, atrial fibrillation with permanent pacemaker, CAD status post CABG, aortic valve replacement, carotid artery stenosis, dementia, hypertension, hyperlipidemia, osteoarthritis,
anxiety)
Past Surgical History: Cardiac (cardiac cath, TAVR, CABG) and Orthopedic (knee replacement )
Social History
Tobacco: Former Smoker
Alcohol: Daily
Drug: None
Personal:
Living: With Family
Allergies / Home Medications
Allergy/AdvReac Type Severity Reaction Status Date / Time
No Known Allergies Allergy Verified 11/02/24 04:25
�Medication �Instructions �Recorded �Confirmed �Type
atorvastatin 80 mg tablet 80 mg PO HS High Cholesterol 02/02/23 11/30/24 History
metoprolol succinate 50 mg 50 mg PO BID Blood Pressure 02/02/23 11/30/24 History
tablet,extended release 24 hr
valsartan 80 mg tablet 40 mg PO BID Blood pressure 09/25/23 11/30/24 History
Calcium 600 Mg + Vitamin D 800 Mcg 1 tab PO DAILY Supplement ##0 08/12/24 11/30/24 Rx
Vitamin B-12 1 tab PO DAILY Supplement 08/17/24 11/30/24 History
aspirin 81 mg tablet,delayed 81 mg PO DAILY #1 tab 08/17/24 11/30/24 Rx
release
escitalopram oxalate 20 mg tablet 20 mg PO BID Mental Health/Anxiety 08/25/24 11/30/24 History
(Lexapro)
furosemide 20 mg tablet (Lasix) 20 mg PO HS Fluid 09/17/24 11/30/24 History
Retention/Swelling
furosemide 40 mg tablet (Lasix) 40 mg PO DAILY Fluid 09/17/24 11/30/24 History
Retention/Swelling
cephalexin 500 mg capsule 500 mg PO QID 7 days #28 caps 11/23/24 11/30/24 Rx
acetaminophen 300 mg-codeine 30 mg 1 tab PO BID PRN mild pain 11/30/24 11/30/24 History
tablet
acetaminophen 500 mg tablet 1,000 mg PO BIDPRN PRN mild pain 11/30/24 11/30/24 History
(Tylenol Extra Strength)
apixaban 5 mg tablet (Eliquis) 5 mg PO BID Blood Clot 11/30/24 11/30/24 History
Prevention/Tx
empagliflozin 10 mg tablet 10 mg PO DAILY Diabetes 11/30/24 11/30/24 History
(Jardiance)
triamcinolone acetonide 0.1 % 1 applic topical BID PRN B/L 11/30/24 11/30/24 History
topical cream elbows psoriasis
Review of Systems
-
History Source: Patient
Constitutional: Reports No Symptoms
EENT: Reports No Symptoms
Respiratory: Reports No Symptoms
Cardiac: Reports No Symptoms
Vascular: Denies Leg Pain / Claudication
Abdomen/GI: Reports No Symptoms
: Reports No Symptoms
Musculoskeletal: Reports No Symptoms
Skin: Reports Other (non-healing right lateral ankle wound)
Neurological: Reports No Symptoms
Endocrine: Reports No Symptoms
Physical Exam
Vital Signs
Temp Pulse Resp BP Pulse Ox
98.2 F 72 18 121/59 96
12/02/24 11:34 12/02/24 11:34 12/02/24 11:34 12/02/24 11:34 12/02/24 11:34
Lab Results
12/01/24 06:27
12/01/24 06:27
Physical Exam
General: No Apparent Distress and Comfortable
HEENT: Normocephalic, Anicteric and Atraumatic
Respiratory: Non Labored Respirations
Cardiac: Negative JVD
GI: Soft, Non Tender and Non Distended
Musculoskeletal: Edema (BL LE trace edema )
Skin: Warm and Other (Right lateral ankle wound with purulent drainage, erythema )
Neuro: AO x 3
Pulses: Bilateral Femoral: +1 (unable to palpate distal pulses)
Assessment / Plan
-
Assessment: 79 year old female with chronic non healing right lateral ankle wound with ultrasound evidence of peripheral arterial disease
Plan:
Recommend right lower extremity angiogram with possible endovascular intervention. Plan for OR tomorrow 12/03/[address] Helder Barclay III.
NPO at midnight
Hold Eliquis
Plan reviewed with attending Dr. Helder Barclay III who agrees and hospitalist update via TT.
--- NOTE | 2024-12-02 16:39 | CON.CAR ---
Addendum entered and electronically signed by Jordon Matthews MD 12/02/24 17:15:
I saw and examined the patient.
The Funeral Limousine Driver's note was reviewed and I agree with the note.
Comment: Briefly, 79-year-old woman past medical history of AVR/CABG, TAVR (09/2024), permanent pacemaker, atrial fibrillation status post ablation and heart failure with preserved ejection fraction presenting from the primary care office with
hypotension. Cardiology was consulted to help with management of her chronic cardiac meds.
While here she was found to have a nonhealing right lower extremity wound at the lateral malleolus. There is concern for peripheral arterial disease as a cause of this and she is planned for angiogram tomorrow.
Has had frequent falls recently and it is possible these are related to symptomatic hypotension. Blood pressure meds have been held and are being added back slowly.
With known mildly reduced LV systolic function and would ideally be on beta-tanesha and ARB
Agree with adding back metoprolol at a lower dose
If blood pressure tolerates we will try to add back lower dose of ARB after the angiogram
Rest per Valentina Sprague
Original Note:
Consultation
Consultation Request
Date/Time Consultation Requested: 12/02/24
Date/Time Consultation Performed: 12/02/24
Requesting Provider: Dr. Cindy Muñiz
Performing Provider: Valentina Sprague PA-C for Dr. Matthews
Reason for Consultation: medication adjustments
Medical History
-
Chief Complaint: Falls and hypotension
History of Present Illness:
Patient is a 79-year-old female with past medical history of aortic stenosis status post tissue AVR and CABG 2013, TAVR 09/24/2024, history of pacemaker, paroxysmal atrial fibrillation status post ablation 2023, with recent recurrence started back on
Eliquis 11/25/2024, chronic heart failure with preserved EF, hypertension, hyperlipidemia, former smoker, chronic right bundle branch block and left anterior fascicular block who presents to [facility] due to recurrent falls. She had a fall
on 6/23 resulting in her coming to the ER and was subsequently discharged. She then had post TAVR echo 11/25/2024 with echo showing EF 47% with TAVR well-seated and no AR. She then presented back to [facility] emergency room
on 11/30 at referral of primary care physician due to her blood pressure being low at 60/40 in the office and having had several additional falls prior to office visit. She was admitted with SUSIE (Cr 1.1) and hypotension and outpatient Toprol 50 mg
twice daily, valsartan 40 mg twice daily and Lasix 40 mg every morning with 20 mg every afternoon were held. While here was also complaining of a right foot wound which she has noted over the last 4 months with oozing as well as nocturnal pain.
She had ABIs which showed evidence of right leg ischemia and vascular has been consulted. She is planned for angiogram tomorrow. Cardiology consulted for assistance with medication management.
PMH:
s/p Medtronic DC PPM 07/12/23
Paroxysmal Afib status post ablation 09/2023, with recurrence noted on pacemaker 11/2024, prior amiodarone therapy
Chronic Eliquis OAC
CAD s/p CABG with NELSON to LAD seq to Diag-1 and SVG to OM 2013
s/p tissue AVR 2013
Status post valve in valve TAVR 09/20/2024
Chronic right bundle branch block and left anterior fascicular block
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
Carotid stenosis
Psoriasis
Hypertension
Hyperlipidemia
Anxiety/depression
B12 deficiency
Past Medical History
Past Medical History: Other (in HPI)
Past Surgical History: Cardiac (CABG and tissue AVR 2013, ablation 2023)
Social History
Tobacco: Former Smoker
Alcohol: Occasional
Drug: None
Personal:
Living: With Family
Family History
Family History: CAD and Cancer
Allergies / Home Medications
Allergy/AdvReac Type Severity Reaction Status Date / Time
No Known Allergies Allergy Verified 11/02/24 04:25
�Medication �Instructions �Recorded �Confirmed �Type
atorvastatin 80 mg tablet 80 mg PO HS High Cholesterol 02/02/23 11/30/24 History
metoprolol succinate 50 mg 50 mg PO BID Blood Pressure 02/02/23 11/30/24 History
tablet,extended release 24 hr
valsartan 80 mg tablet 40 mg PO BID Blood pressure 09/25/23 11/30/24 History
Calcium 600 Mg + Vitamin D 800 Mcg 1 tab PO DAILY Supplement ##0 08/12/24 11/30/24 Rx
Vitamin B-12 1 tab PO DAILY Supplement 08/17/24 11/30/24 History
aspirin 81 mg tablet,delayed 81 mg PO DAILY #1 tab 08/17/24 11/30/24 Rx
release
escitalopram oxalate 20 mg tablet 20 mg PO BID Mental Health/Anxiety 08/25/24 11/30/24 History
(Lexapro)
furosemide 20 mg tablet (Lasix) 20 mg PO HS Fluid 09/17/24 11/30/24 History
Retention/Swelling
furosemide 40 mg tablet (Lasix) 40 mg PO DAILY Fluid 09/17/24 11/30/24 History
Retention/Swelling
cephalexin 500 mg capsule 500 mg PO QID 7 days #28 caps 11/23/24 11/30/24 Rx
acetaminophen 300 mg-codeine 30 mg 1 tab PO BID PRN mild pain 11/30/24 11/30/24 History
tablet
acetaminophen 500 mg tablet 1,000 mg PO BIDPRN PRN mild pain 11/30/24 11/30/24 History
(Tylenol Extra Strength)
apixaban 5 mg tablet (Eliquis) 5 mg PO BID Blood Clot 11/30/24 11/30/24 History
Prevention/Tx
empagliflozin 10 mg tablet 10 mg PO DAILY Diabetes 11/30/24 11/30/24 History
(Jardiance)
triamcinolone acetonide 0.1 % 1 applic topical BID PRN B/L 11/30/24 11/30/24 History
topical cream elbows psoriasis
Review of Systems
-
History Source: Patient
All other systems: Negative unless noted
Physical Exam
Vital Signs
Temp Pulse Resp BP Pulse Ox
97.3 F 98 18 139/67 97
12/02/24 15:09 12/02/24 15:09 12/02/24 15:09 12/02/24 15:09 12/02/24 15:09
Lab Results
12/01/24 06:27
12/01/24 06:27
Physical Exam
General: No Apparent Distress and Comfortable
HEENT: Normocephalic, Anicteric and Moist Mucous Membranes
Respiratory: Clear and Non Labored Respirations
Cardiac: S1/S2, Regular Rhythm and Murmur
GI: Soft, Non Tender, Non Distended and Normal Bowel Sounds
Musculoskeletal: No Clubbing, No Cyanosis and Edema (trace of B/L LE)
Skin: Warm and Dry
Neuro: AO x 3
Impression / Plan
-
Primary Wood Experimental Mechanic: Dr. Donis
Assessment:
Presentation with falls
Hypotension
SUSIE, improving
Compression fracture
Abnormal MARIE, R with nonhealing wound
s/p Medtronic DC PPM 07/12/23
Paroxysmal Afib status post ablation 09/2023, with 3 hours of recurrence noted on pacemaker 11/2024, prior amiodarone therapy
Chronic Eliquis OAC
CAD s/p CABG with NELSON to LAD seq to Diag-1 and SVG to OM 2013
s/p tissue AVR 2013
Status post valve in valve TAVR 09/20/2024
Chronic right bundle branch block and left anterior fascicular block
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
Carotid stenosis
Psoriasis
Hypertension
Hyperlipidemia
Anxiety/depression
B12 deficiency
ECHO 11/05/24: EF 47%, mild concentric LVH, paradoxical septal motion and low normal contractility of remaining segments, MAC, mild MR, dilated LA, #26 Medtronic TAVR with peak/mean gradients of 23/11 mmHg, no AR, normal right heart with pacing leads
and PAP 25 mmHg
Plan:
- Patient presented with falls and hypotension as well as mild SUSIE.
- Blood pressures improved. Presently back on lower dose of Toprol 25 mg twice daily
- Outpatient Lasix and valsartan remain on hold. Creatinine improved to 1.0 on 12/02
- Recent echo post TAVR with stable EF at 47% and TAVR well-seated with no AR
- Follow orthostatic vital signs. PT/OT
- AV paced on review of telemetry, no afib noted. Check EKG
- plan for angiogram in a.m. for assessment of abnormal MARIE and right ankle nonhealing wound per vascular. No issues with proceeding as planned from cardiac standpoint
- Continue aspirin. Eliquis on hold with plan for angiogram tomorrow.
- continue wound care, abx per primary service
- Discussed with nursing
Data Reviewed
-
EKG: Tracing Personally Visualized and interpreted
Ultrasound: Report Reviewed by me
Medical Tests (Nuc Med, Echo etc): Report Reviewed by me
Labs: Labs Reviewed by me
Old Records: Reviewed
[2024-12-02] MEDS: REMOVE LIDOCAINE PATCH 1 PATCH REMOVE (20:03)
[2024-12-02] MEDS: LIPITOR 80 MG PO (20:04)
[2024-12-02] MEDS: TYLENOL #3 1 TABLET PO (23:21)
[2024-12-03] VITALS (15 sets, daily range): BP systolic 110–158; BP diastolic 49–75; PULSE 80; O2SAT 96; BMI 29.1
[2024-12-03] MEDS: TYLENOL 1000 MG PO ×2 (03:56→11:42)
[2024-12-03] MEDS: ANCEF 5 IV ×3 (03:56→20:04)
[2024-12-03 05:48] LABS: Hematocrit 34.9 % (37.0-47.0); Hemoglobin 11.8 g/dL (12.0-16.0); Mean Corp Hgb Conc. 33.8 g/dL (33.0-37.0); Mean Corpuscular Volume 100.9 fL (81.0-99.0); Platelet Count 139 10^3/uL (130-400); Red Cell Dist. Width 13.4 % (11.5-14.5)
[2024-12-03 06:04] LABS: INR 1.02; PT 13.9 Sec (11.4-14.6)
[2024-12-03 06:05] LABS: APTT 29.9 Sec (23.4-35.0)
[2024-12-03 06:13] LABS: Blood Urea Nitrogen 21 mg/dl (7-17); Calcium 9.2 mg/dl (8.4-10.2); Carbon Dioxide 27 mmol/L (22-30); Chloride 112 mmol/L (98-107); Estimated Creatinine Clearance 83 ml/min; Glucose 94 mg/dl (70-99); Potassium 4.3 mmol/L (3.5-5.1); Sodium 141 mmol/L (135-145); eGFR > 60.00
[2024-12-03] MEDS: TOPROL XL 25 MG PO ×2 (08:24→20:02)
[2024-12-03] MEDS: LIDOCAINE 4% PATCH 1 PATCH TOPICAL (08:24)
[2024-12-03] MEDS: ASPIR LOW (ENTERIC COATED) 81 MG PO (08:24)
[2024-12-03] MEDS: LEXAPRO 20 MG PO (08:24)
[2024-12-03] MEDS: TYLENOL #3 1 TABLET PO ×2 (08:26→22:53)
--- NOTE | 2024-12-03 08:47 | W.PN.CARDCBS ---
Addendum entered and electronically signed by Dylan Cook MD 12/03/24 14:18:
Primary Blasting Contract Man: Dr. Donis
Patient seen, interviewed and examined by me.
Denies chest pain shortness of breath palpitations and dizziness.
Well-appearing, no acute distress
Regular rate and rhythm with normal S1 and S2, no S3 no S4. There is a grade 1/6 apical holosystolic murmur and no rubs. PMI is normally placed.
Lungs are clear to auscultation bilaterally without wheezes rales or rhonchi.
Abdomen soft nontender nondistended with normoactive bowel sounds
Extremities show trace pretibial edema bilaterally no clubbing or cyanosis.
Neurologic exam is grossly nonfocal.
Assessment:
Presented with falls
Hypotension
SUSIE, improved
Compression fracture
Abnormal MARIE, R with nonhealing wound
s/p Medtronic DC PPM 07/12/23
Paroxysmal Afib
s/p ablation 09/2023
3 hours of recurrence noted on pacemaker 11/2024
prior amiodarone therapy
Chronic Eliquis OAC
CAD
s/p CABG with NELSON to LAD seq to Diag-1 and SVG to OM 2013s/p tissue AVR 2013
s/p valve in valve TAVR 09/20/2024
Chronic right bundle branch block and left anterior fascicular block
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
Carotid stenosis
Psoriasis
Hypertension
Hyperlipidemia
Anxiety/depression
B12 deficiency
ECHO 11/05/2024: EF 47%, mild concentric LVH, paradoxical septal motion and low normal contractility of remaining segments, MAC, mild MR, dilated LA, #26 Medtronic TAVR with peak/mean gradients of 23/11 mmHg, no AR, normal right heart with pacing
leads and PAP 25 mmHg
Plan:
Presented with falls and hypotension. Admitted w/ SUSIE, nonhealing wound.
Cardiology following due to low BPs. OP Lasix, Jardiance, and Valsartan on hold. Continues on Toprol at lower dose 25mg BID.
Creat improved this AM, down to 0.7. BP stable this AM.
Would consider restarting valsartan at lower dose 40mg daily following angiogram.
Eventually would resume lasix, likely also at lower dose.
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
OP Lasix, Jardiance, and Valsartan on hold. Continues on Toprol at lower dose 25mg BID.
Would consider restarting valsartan at lower dose 40mg daily following angiogram.
Eventually would resume lasix, likely also at lower dose.
Paroxysmal atrial fibrillation
Very low burden after ablation September 21, 2023. There was a 3-hour episode of A-fib on pacemaker diagnostics for November 2024
Eliquis on hold for angiogram. Continue aspirin 81mg daily for now and resume Eliquis as able.
H/o TAVR
Echo 11/05 post TAVR w/ stable EF of 47% and well seated TAVR as above. No need to repeat.
Peripheral arterial disease with nonhealing right ankle wound
Plan is for angiogram today for vascular evaluation
Eliquis on hold for angiogram. Continue aspirin 81mg daily for now and resume Eliquis as able.
Original Note:
Today's Communication / Plan
-
Continue Toprol at lower dose 25mg BID
Angiogram today. resume Eliquis once safe post procedure
Consider resuming valsartan/lasix at lower dose.
Renal function improving.
Impression / Plan
-
Primary Blasting Contract Man: Dr. Donis
Assessment:
Presented with falls
Hypotension
SUSIE, improved
Compression fracture
Abnormal MARIE, R with nonhealing wound
s/p Medtronic DC PPM 07/12/23
Paroxysmal Afib
s/p ablation 09/2023
3 hours of recurrence noted on pacemaker 11/2024
prior amiodarone therapy
Chronic Eliquis OAC
CAD
s/p CABG with NELSON to LAD seq to Diag-1 and SVG to OM 2013
s/p tissue AVR 2013
s/p valve in valve TAVR 09/20/2024
Chronic right bundle branch block and left anterior fascicular block
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
Carotid stenosis
Psoriasis
Hypertension
Hyperlipidemia
Anxiety/depression
B12 deficiency
ECHO 11/05/2024: EF 47%, mild concentric LVH, paradoxical septal motion and low normal contractility of remaining segments, MAC, mild MR, dilated LA, #26 Medtronic TAVR with peak/mean gradients of 23/11 mmHg, no AR, normal right heart with pacing
leads and PAP 25 mmHg
Plan:
-Presented with falls and hypotension. Admitted w/ SUSIE, nonhealing wound.
-Cardiology following due to low BPs. OP Lasix, Jardiance, and Valsartan on hold. Continues on Toprol at lower dose 25mg BID.
-Creat improved this AM, down to 0.7. BP stable this AM. Would consider restarting valsartan at lower dose 40mg daily following angiogram.
-Eventually would resume lasix, likely also at lower dose.
-Weight up to 208 lbs on 12/03.
-Echo 11/05 post TAVR w/ stable EF of 47% and well seated TAVR as above. No need to repeat.
-Plan is for angiogram today, 12/03, for nonhealing R ankle wound per vascular.
-Eliquis on hold for angiogram. Continue aspirin 81mg daily for now and resume Eliquis as able.
HPI: Patient is a 79-year-old female with past medical history of aortic stenosis status post tissue AVR and CABG 2013, TAVR 09/24/2024, history of pacemaker, paroxysmal atrial fibrillation status post ablation 2023, with recent recurrence started
back on Eliquis 11/25/2024, chronic heart failure with preserved EF, hypertension, hyperlipidemia, former smoker, chronic right bundle branch block and left anterior fascicular block who presents to [facility] due to recurrent falls. She had
a fall on 11/23 resulting in her coming to the ER and was subsequently discharged. She then had post TAVR echo 11/25/2024 with echo showing EF 47% with TAVR well-seated and no AR. She then presented back to [facility]
emergency room on 11/30 at referral of primary care physician due to her blood pressure being low at 60/40 in the office and having had several additional falls prior to office visit. She was admitted with SUSIE (Cr 1.1) and hypotension and outpatient
Toprol 50 mg twice daily, valsartan 40 mg twice daily and Lasix 40 mg every morning with 20 mg every afternoon were held. While here was also complaining of a right foot wound which she has noted over the last 4 months with oozing as well as
nocturnal pain. She had ABIs which showed evidence of right leg ischemia and vascular has been consulted. She is planned for angiogram tomorrow. Cardiology consulted for assistance with medication management.
Progress Note - Blasting Contract Man
Subjective
Date of Service: December 03, 2024
Feeling well from cardiac standpoint. Back pain noted.
Objective
Labs:
12/03/24 05:05
12/03/24 05:05
Labs
Hgb 11.8 g/dL (12.0-16.0) L 12/03/24 05:05
Hct 34.9 % (37.0-47.0) L 12/03/24 05:05
Plt Count 139 10^3/uL (130-400) 12/03/24 05:05
PT 13.9 Sec (11.4-14.6) 12/03/24 05:05
INR 1.02 12/03/24 05:05
APTT 29.9 Sec (23.4-35.0) 12/03/24 05:05
Sodium 141 mmol/L (135-145) 12/03/24 05:05
Potassium 4.3 mmol/L (3.5-5.1) 12/03/24 05:05
BUN 21 mg/dl (7-17) H 12/03/24 05:05
Creatinine 0.7 mg/dL (0.6-1.0) 12/03/24 05:05
Glucose 94 mg/dl (70-99) 12/03/24 05:05
Vital Signs and I&O:
Vital Signs
Temp Pulse Resp BP Pulse Ox
97.7 F 73 16 140/70 98
12/03/24 07:00 12/03/24 07:00 12/03/24 07:00 12/03/24 07:00 12/03/24 07:00
Vital Signs
Temp Pulse Resp BP Pulse Ox
97.7 F 73 16 140/70 98
12/03/24 07:00 12/03/24 07:00 12/03/24 07:00 12/03/24 07:00 12/03/24 07:00
Intake & Output
12/01/24 12/02/24 12/03/24 12/04/24
06:59 06:59 06:59 06:59
Intake Total 480 / 480 1730 / 1730 480 / 480
Balance 480 / 480 1730 / 1730 480 / 480
Physical Exam
Physical Exam
GEN: No distress, awake, alert, oriented x3
HEENT: supple, anicteric, mmm
LUNGS: CTA b/l, no wheezes/rales
CV: Reg, S1/S2, no murmur
EXT: No edema, clubbing or cyanosis
NEURO: Gross non-focal
SKIN: No rash, warm, dry, pink
--- NOTE | 2024-12-03 11:35 | W.PN.UPDATE ---
Update Note
Progress Note Update
Continue local wound care
Await vascular intervention
Anticipate wound care follow up
[2024-12-03] MEDS: TORADOL 15 MG IV (12:46)
--- NOTE | 2024-12-03 13:36 | W.SUR.PREOP ---
Pre-Operative Surgical Note
-
I have examined this patient prior to the performance of the scheduled procedure.
The patient's condition is unchanged from the time of the current History and
Physical and the patient is able to undergo the scheduled procedure.
--- NOTE | 2024-12-03 15:48 | W.SUR.POST ---
Surgical Immediate Post Op
Note
Pre Op Diagnosis: Peripheral Arterial Disease
Post Op Diagnosis: Peripheral Arterial Disease
Procedure Performed: Right lower extremity angiography, intravascular lithotripsy of distal SFA, angioplasty + stenting of SFA
Primary Surgeon: Helder Barclay MD
Secondary Surgeons: Derek Mir MD
Anesthesia: see anesthesia record
Estimated Blood Loss: minimal
Fluids: see anesthesia record
Drains/Shunts: none
Specimens/Cultures: none
Doppler/Duplex/Angio (Y/N): Y
Complications: None
Operative Findings: Extensive right SFA atherosclerotic disease, intravascular lithotripsy of distal SFA, angioplasty + stenting of SFA.
--- NOTE | 2024-12-03 15:57 | OR.RPT ---
Operative Report
Operative Report
Date of Operation: 12/03/2024
Pre Op Diagnosis: Chronic limb threatening ischemia with nonhealing right lateral ankle ulcer and recurrent cellulitis
Post Op Diagnosis: Chronic limb threatening ischemia with nonhealing right lateral ankle ulcer and recurrent cellulitis
Procedure:
1.) Intravascular lithotripsy to right popliteal artery and superficial femoral artery (6 mm x 80 mm E8 shockwave balloon)
2.) Balloon angioplasty and drug-eluting stent placement to popliteal artery and superficial femoral artery (overlapping Zilver PTX stents - 6 mm x 140 mm (x2), 6 mm x 80 mm)
3.) Diagnostic right lower extremity arteriogram
4.) Ultrasound-guided percutaneous antegrade access to the right superficial femoral artery origin
Surgeon: Helder Barclay III, MD
Pit Shovel Operator: Derek Mir MD PGY-6
Anesthesia: Sedation with local
Fluoroscopy:
29.7 min
125 mGy
25.09 gy.cm2
Complications: None
Estimated Blood Loss: Less than 20 cc
History and Indications for Procedure: 79-year-old female with chronic nonhealing right lateral ankle ulcer and recurrent cellulitis. She had abnormal preoperative noninvasive arterial studies. I recommended endovascular interrogation of her right
lower extremity.
Procedure in Detail: Aliyah Land was correctly identified and placed supine on the operating table. After adequate induction of anesthesia the bilateral groins were prepped and draped in the usual sterile fashion. A timeout was performed with the
nursing and anesthesia staff confirming the patient's identity as well as the nature and laterality of the procedure.
The right common femoral artery was identified under ultrasound guidance. The artery was patent. The superior and inferior aspects of the femoral head were identified with radiographic guidance and marked at the skin level. The proposed puncture
site was infiltrated with local anesthesia. Under ultrasound guidance we accessed the right superficial femoral artery origin at the femoral bifurcation in an antegrade direction with a micropuncture needle and upsized to a 5 Fr sheath over a
Bentson wire.
A diagnostic RIGHT lower extremity arteriogram was then performed which demonstrated the following:
RIGHT LOWER EXTREMITY:
Superficial femoral artery: Patent. Diffusely calcified. Scattered areas of moderate to high-grade stenosis throughout
Popliteal artery: Diffusely calcified. High-grade stenosis above and behind the knee. Below the knee popliteal artery patent with no significant stenosis identified
Anterior tibial artery: Patent
Tibioperoneal trunk: Patent
Difficult to determine patency of peroneal and posterior tibial artery on initial arteriograms due to patient motion
ENDOVASCULAR INTERVENTION: Systemic heparin was administered. Exchanged out for a 6 Fr sheath over a [email or web address] wire. Under roadmap guidance we navigated through the calcified stenoses in the superficial femoral artery and popliteal artery with a
Quickcross and Glidewire. Wire and catheter were advanced into the below-knee popliteal artery. True lumen position was confirmed. Exchanged out for a 0.[address] [place] [address] wire. Due to the heavily calcified nature of the superficial femoral artery and
popliteal artery disease and in an effort to modify the calcium to achieve maximum luminal gain with endovascular intervention I elected to proceed with intravascular lithotripsy. A 6 mm x 80 mm Shockwave balloon was placed across the popliteal
artery stenosis under roadmap guidance. Alternating rounds of lithotripsy pulse delivery at sub-nominal pressure and angioplasty at nominal pressure was performed across the stenosis. In between rounds of pulse delivery and angioplasty the balloon
was deflated and repositioned under roadmap guidance. The entire length of popliteal artery and superficial femoral artery calcified stenosis was treated with the 6 mm E8. All 400 pulses were delivered.
Subsequent arteriogram demonstrated significant improvement but areas of residual stenosis and focal dissection were identified. I then treated the entire length of residual disease with overlapping Zilver PTX stents. Under roadmap guidance a 6 mm
x 140 mm Zilver PTX was positioned and deployed in the popliteal artery. An additional 6 mm x 140 mm Zilver PTX was then extended proximally. Finally a 6 mm x 80 mm Zilver PTX was positioned and deployed proximally. The entire length of the
stents was profiled with a 6 mm angioplasty balloon.
COMPLETION ARTERIOGRAM: Excellent technical result. Widely patent superficial femoral artery and popliteal artery stents with no residual stenosis identified. Brisk flow was identified. Tibial artery outflow was via the anterior tibial artery and
peroneal artery. The posterior tibial artery was occluded but reconstituted at the ankle via peroneal artery collaterals. Areas of distal stenosis were identified in the anterior tibial artery near the ankle. A mid segment stenosis in the
peroneal artery was identified. Significantly improved flow distally compared to pretreatment.
Satisfied with this result we concluded the procedure. The sheath was secured. Protamine was administered. The sheath was pulled and direct manual pressure was held over the puncture site until hemostasis was achieved. A sterile dressing was
applied.
The patient tolerated the procedure well and was taken to the recovery area in stable condition.
Attestation: I was present and responsible for the entire procedure.
Signed:
Helder Barclay III, MD
Vascular Surgery
[facility]
--- NOTE | 2024-12-03 16:38 | W.PN.HOSP.TC ---
Today's Communication/Plan
-
see bold
Assessment / Plan
Assessment / Plan
HPI: 79-year-old female past medical history of systolic suggestive of heart failure, atrial fibrillation with permanent pacemaker, CAD status post CABG, aortic valve replacement, carotid artery stenosis, chronic grade 1 dementia, hypertension,
hyperlipidemia, osteoarthritis, anxiety, presenting from doctors office for hypotension. She was seen here yesterday after a fall and was diagnosed with a new compression fracture. She has had a few falls recently due to balance dysfunction. She
followed up with her doctor today and was complaining of fatigue and weakness. She was found to be hypotensive with blood pressure of 60/40. EMS was called and she was brought here. She denies any chest pain. Denies lightheadedness. Denies leg
pain. She has been eating and drinking. Denies black stool or blood in stool. Denies fever. Denies chest pain. Denies any other complaints.
She has had cellulitis of the right ankle intermittently a few times. She is currently finishing a 1 week course of Keflex which completes tomorrow. Denies any fevers or chills.
No recent changes to her cardiac medications apart from increase in Lasix in August. She was also recently started back on Eliquis due to recurrence of atrial fibrillation.
Drinks a cocktail every day. Former smoker.
# Hypotension secondary to hypovolemia from anti-hypertensive/cardiac medications
Orthostatics negative. Chest x-ray negative, urinalysis negative
Hypotension resolved off of IV fluids
Continue holding Lasix, valsartan for now, will need medication titration
Likely can resume valsartan tomorrow if creatinine is okay after her angiogram today
PT/OT recommends home care
# Acute kidney injury
Resolved with IV fluids
Continue holding valsartan
#Cellulitis of right lower ankle
#Peripheral artery disease
Last dose of Keflex sched 12/01
Wound care nurse reports mucopurulent discharge
Appreciate podiatry input, no urgent surgical intervention recommended (R ankle XR neg for cortical bony destructive process)
Recommend patient follows up with her usual outpatient food service technician, Dr. Sharon Gaona
Give IV Ancef while in the hospital, anticipate she will need Keflex upon discharge
R MARIE moderately reduced at 0.56
Appreciate vascular surgery input, status post right lower extremity angioplasty 12/03
#Fall yesterday likely secondary to orthostatic hypotension
#L2 compression fracture
Continue Tylenol, add lidocaine patch, add oxycodone as needed
Chronic systolic/diastolic heart failure
- Cardiology consulted for medication adjustments
- Hold Lasix, SGLT2 inhibitor
Essential hypertension
- Hold valsartan
- Cardiology consulted for medication adjustments
Paroxysmal atrial fibrillation post ablation with pacemaker
- Resumed metoprolol at decreased dose at 25 mg BID with hold parameters, resume Eliquis when okay with vascular surgery
CAD status post CABG
- Continue aspirin, statin
Aortic valve replacement
Carotid artery stenosis
Chronic right bundle branch block
Hyperlipidemia
Osteoarthritis
- Continue gabapentin
Anxiety/depression
- Continue Lexapro
DVT prophylaxis� SCDs, resume Eliquis when okay with vascular surgery
Full code
Total time spent to see the patient on the floor, examine the patient, review data and lab results, discuss treatment plan with patient, nursing staff around 41 minutes.
Physical Exam
General: No acute distress
HEENT: Normocephalic, Atraumatic, EOMI, MMM
Respiratory: Clear to Auscultation bilaterally
Cardiac: Normal S1/S2, Regular Rate and Rhythm
GI: Soft, Nontender, Nondistended, Normal Bowel Sounds
Extremities: No Clubbing, Cyanosis, or Edema
Neuro: Nonfocal/Grossly Intact
Psych: Calm, Cooperative
Derm:
Right ankle wound dressed
Anticipated Discharge: Within 24 hours
Subjective/Interval History
-
Date of Service: December 03, 2024
Patient seen and examined in the morning before her procedure. She did not have any recurrence of lightheadedness or dizziness. She reports that her back pain is 8 out of 10 in intensity. Denies right ankle pain. No fever, no vomiting.
Objective Data
-
Labs:
Laboratory Results
12/03/24
05:05
WBC 5.5
Hgb 11.8 L
Hct 34.9 L
Plt Count 139
PT 13.9
INR 1.02
APTT 29.9
Sodium 141
Potassium 4.3
Chloride 112 H
Carbon Dioxide 27
BUN 21 H
Creatinine 0.7
Glucose 94
Calcium 9.2
Vital Signs:
Vital Signs
Temp Pulse Resp BP Pulse Ox
97.7 F 73 16 140/70 98
12/03/24 07:00 12/03/24 07:00 12/03/24 07:00 12/03/24 07:00 12/03/24 07:00
I&O
12/02/24 12/03/24 12/04/24
06:59 06:59 06:59
Intake Total 1730 / 1730 480 / 480
Balance 1730 / 1730 480 / 480
--- NOTE | 2024-12-03 16:40 | CM ---
Pt at arteriogram today.
PT OT indicate VN.
Pt was to start cardiac rehab.
Will need to confirm with patient her plan.
PLAN Home with VN VS cardiac rehab
[2024-12-03] MEDS: PROTONIX PO (17:12)
[2024-12-03] MEDS: PLAVIX 300 MG PO (17:16)
[2024-12-03] MEDS: NSS 1000 IV (18:01)
[2024-12-03] MEDS: REMOVE LIDOCAINE PATCH 1 PATCH REMOVE (20:03)
[2024-12-03] MEDS: LIPITOR 80 MG PO (20:05)
[2024-12-04] MEDS: ANCEF 5 IV ×2 (03:22→12:00)
[2024-12-04] MEDS: TYLENOL 1000 MG PO (03:23)
[2024-12-04 03:33] VITALS: BP 120/57
[2024-12-04 05:23] VITALS: BMI 29.2
[2024-12-04 08:11] VITALS: BP 141/63
--- NOTE | 2024-12-04 08:19 | W.PN.UPDATE ---
Update Note
Progress Note Update
Given stability of wound and successful revascularization (discussed with Vascular)
-Monitor wound with local wound care
-Continue ABx
-Continue home wound care
-No weight bearing restrictions, offload lateral malleolus in bed or avoid direct pressure
-Monitor with outpatient follow up with Malamed or Myself
[2024-12-04 08:41] LABS: Blood Urea Nitrogen 21 mg/dl (7-17); Calcium 9.4 mg/dl (8.4-10.2); Carbon Dioxide 25 mmol/L (22-30); Chloride 113 mmol/L (98-107); Estimated Creatinine Clearance 83 ml/min; Glucose 113 mg/dl (70-99); Potassium 4.5 mmol/L (3.5-5.1); Sodium 141 mmol/L (135-145); eGFR > 60.00
--- NOTE | 2024-12-04 08:59 | W.PN.HOSP.TC ---
Today's Communication/Plan
-
Discharge today
Assessment / Plan
Assessment / Plan
HPI: 79-year-old female past medical history of systolic suggestive of heart failure, atrial fibrillation with permanent pacemaker, CAD status post CABG, aortic valve replacement, carotid artery stenosis, chronic grade 1 dementia, hypertension,
hyperlipidemia, osteoarthritis, anxiety, presenting from doctors office for hypotension. She was seen here yesterday after a fall and was diagnosed with a new compression fracture. She has had a few falls recently due to balance dysfunction. She
followed up with her doctor today and was complaining of fatigue and weakness. She was found to be hypotensive with blood pressure of 60/40. EMS was called and she was brought here. She denies any chest pain. Denies lightheadedness. Denies leg
pain. She has been eating and drinking. Denies black stool or blood in stool. Denies fever. Denies chest pain. Denies any other complaints.
She has had cellulitis of the right ankle intermittently a few times. She is currently finishing a 1 week course of Keflex which completes tomorrow. Denies any fevers or chills.
No recent changes to her cardiac medications apart from increase in Lasix in August. She was also recently started back on Eliquis due to recurrence of atrial fibrillation.
Drinks a cocktail every day. Former smoker.
# Hypotension secondary to hypovolemia from anti-hypertensive/cardiac medications
Orthostatics negative. Chest x-ray negative, urinalysis negative
Hypotension resolved off of IV fluids
12/04�valsartan resumed at 40 mg twice a day as per cardiology, Lasix resumed at 40 mg daily
Repeat orthostatics 3 hours later negative
Patient is medically stable for discharge, follow-up with PCP in 1 week, cardiology in the office in 2-3 weeks
PT/OT recommends home care
# Acute kidney injury
Resolved with IV fluids
#Cellulitis of right lower ankle
#Peripheral artery disease
Last dose of Keflex sched 12/01
Wound care nurse reports mucopurulent discharge
Appreciate podiatry input, no urgent surgical intervention recommended (R ankle XR neg for cortical bony destructive process)
Recommend patient follows up with her usual outpatient professor of special education, Dr. Sharon Gaona
Treated with IV Ancef while in the hospital, instructed patient to continue Keflex upon discharge for 1 more week
R MARIE moderately reduced at 0.56
Appreciate vascular surgery input, status post right lower extremity angioplasty 12/03
Started on Plavix by vascular surgery, can resume Eliquis upon discharge, permanently discontinue aspirin
#Fall yesterday likely secondary to orthostatic hypotension
#L2 compression fracture
Continue Tylenol, add lidocaine patch, add oxycodone as needed
Chronic systolic/diastolic heart failure
- Cardiology consulted for medication adjustments
- Resume Lasix and SGLT2 inhibitor
Essential hypertension
- Resume valsartan 40 mg twice a day as per cardiology
Paroxysmal atrial fibrillation post ablation with pacemaker
- Resumed metoprolol at decreased dose at 25 mg BID with hold parameters, can resume Eliquis upon discharge
CAD status post CABG
- Continue statin, started on Plavix by vascular surgery, discontinue aspirin
Aortic valve replacement
Carotid artery stenosis
Chronic right bundle branch block
Hyperlipidemia
Osteoarthritis
- Continue gabapentin
Anxiety/depression
- Continue Lexapro
DVT prophylaxis� SCDs, resume Eliquis upon discharge
Full code
Physical Exam
General: No acute distress
HEENT: Normocephalic, Atraumatic, EOMI, MMM
Respiratory: Clear to Auscultation bilaterally
Cardiac: Normal S1/S2, Regular Rate and Rhythm
GI: Soft, Nontender, Nondistended, Normal Bowel Sounds
Extremities: No Clubbing, Cyanosis, or Edema
Neuro: Nonfocal/Grossly Intact
Psych: Calm, Cooperative
Derm:
Right ankle wound dressed
Anticipated Discharge: Today
Subjective/Interval History
-
Date of Service: December 04, 2024
Patient complains of her lower back pain. Her right ankle pain is mild. No chest pain, no shortness of breath. No lightheadedness, no dizziness. No fever, no vomiting. She is eager for discharge today.
Objective Data
-
Labs:
Laboratory Results
12/04/24
07:22
Sodium 141
Potassium 4.5
Chloride 113 H
Carbon Dioxide 25
BUN 21 H
Creatinine 0.7
Glucose 113 H
Calcium 9.4
Vital Signs:
Vital Signs
Temp Pulse Resp BP Pulse Ox
97.8 F 77 18 141/63 99
12/04/24 08:11 12/04/24 08:11 12/04/24 08:11 12/04/24 08:11 12/04/24 08:11
I&O
12/03/24 12/04/24 12/05/24
06:59 06:59 06:59
Intake Total 480 / 480 340 / 340
Balance 480 / 480 340 / 340
[2024-12-04] MEDS: LEXAPRO 20 MG PO (09:22)
[2024-12-04] MEDS: LIDOCAINE 4% PATCH 1 PATCH TOPICAL (09:22)
[2024-12-04] MEDS: LASIX 40 MG PO (09:23)
[2024-12-04] MEDS: PROTONIX 40 MG PO (09:23)
[2024-12-04] MEDS: DIOVAN 40 MG PO (09:23)
[2024-12-04] MEDS: TOPROL XL 25 MG PO (09:23)
[2024-12-04] MEDS: PLAVIX 75 MG PO (09:23)
[2024-12-04 11:04] VITALS: BP 124/65
[2024-12-04] MEDS: TYLENOL #3 1 TABLET PO (11:57)
--- NOTE | 2024-12-04 12:11 | W.PN.CARDCBS ---
Today's Communication / Plan
-
Please reinitiate Eliquis as soon as okay with vascular and primary service
Will sign off, please call if any further questions
Impression / Plan
-
Primary Contact Center Analyst: Dr. Donis
Patient seen, interviewed and examined by me.
Denies chest pain shortness of breath palpitations and dizziness.
Assessment:
Presented with falls
Hypotension
SUSIE, improved
Compression fracture
Abnormal MARIE, R with nonhealing wound
s/p Medtronic DC PPM 07/12/23
Paroxysmal Afib
s/p ablation 09/2023
3 hours of recurrence noted on pacemaker 11/2024
prior amiodarone therapy
Chronic Eliquis OACCAD
s/p CABG with NELSON to LAD seq to Diag-1 and SVG to OM 2013s/p tissue AVR 2013s/p valve in valve TAVR 09/20/2024
Chronic right bundle branch block and left anterior fascicular block
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
Carotid stenosis
Psoriasis
Hypertension
Hyperlipidemia
Anxiety/depression
B12 deficiency
ECHO 11/05/2024: EF 47%, mild concentric LVH, paradoxical septal motion and low normal contractility of remaining segments, MAC, mild MR, dilated LA, #26 Medtronic TAVR with peak/mean gradients of 23/11 mmHg, no AR, normal right heart with pacing
leads and PAP 25 mmHg
Plan:
Presented with falls and hypotension. Admitted w/ SUSIE, nonhealing wound.
Cardiology following due to low BPs.
OP Lasix, Jardiance, and Valsartan on hold.
Continued on Toprol at lower dose 25mg BID.
Renal function has since normalized and stabilized
Fluid balance not accurately recorded
Weight on admission was 204 pounds 5 ounces but she was felt to be volume depleted/dehydrated. Weight today 7/4/25 is 209 pounds
Blood pressures today 120�141 systolic over 57�65 diastolic
- At this point I do not see an overriding reason to resume Lasix but will need to assess volume status daily
Given her HFmrEF, EF 45-50% I would like to get her back on an ARB and I would like to get her back on Jardiance
- Will reinitiate valsartan 40 mg BID
- We will resume empagliflozin 10 mg daily
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
- Maintain Toprol-XL 25 mg twice daily
- Will reinitiate valsartan 40 mg BID
- We will resume empagliflozin 10 mg daily
- At this point I would not reinitiate diuretic therapy but will need to assess volume status daily. If we do start Lasix would start at low-dose.
Paroxysmal atrial fibrillation
Very low burden after ablation September 21, 2023. There was a 3-hour episode of A-fib on pacemaker diagnostics for November 2024
Eliquis has been on hold for angiogram/PTCA which was successfully completed yesterday December 03, 2024
- Would reinitiate Eliquis 5 mg twice daily to reduce atrial fibrillation related thromboembolic risk reduction when okay with primary service and with vascular service
H/o TAVR
Echo 11/05 post TAVR w/ stable EF of 47% and well seated TAVR as above. No need to repeat.
Peripheral arterial disease with nonhealing right ankle wound
She under went successful right lower extremity PTCA by vascular surgery on December 03, 2024
Eliquis has been on hold for angiogram/PTCA which was successfully completed yesterday December 03, 2024
- Would reinitiate Eliquis 5 mg twice daily to reduce atrial fibrillation related thromboembolic risk reduction when okay with primary service and with vascular service
Will sign off, please call if any further questions
Progress Note - Contact Center Analyst
Subjective
Date of Service: December 04, 2024
No chest pain shortness of breath palpitations or dizziness
Objective
Labs:
12/03/24 05:05
12/04/24 07:22
Labs
Hgb 11.8 g/dL (12.0-16.0) L 12/03/24 05:05
Hct 34.9 % (37.0-47.0) L 12/03/24 05:05
Plt Count 139 10^3/uL (130-400) 12/03/24 05:05
PT 13.9 Sec (11.4-14.6) 12/03/24 05:05
INR 1.02 12/03/24 05:05
APTT 29.9 Sec (23.4-35.0) 12/03/24 05:05
Sodium 141 mmol/L (135-145) 12/04/24 07:22
Potassium 4.5 mmol/L (3.5-5.1) 12/04/24 07:22
BUN 21 mg/dl (7-17) H 12/04/24 07:22
Creatinine 0.7 mg/dL (0.6-1.0) 12/04/24 07:22
Glucose 113 mg/dl (70-99) H 12/04/24 07:22
Vital Signs and I&O:
Vital Signs
Temp Pulse Resp BP Pulse Ox
98.0 F 80 18 124/65 98
12/04/24 11:04 12/04/24 11:04 12/04/24 11:04 12/04/24 11:04 12/04/24 11:04
Vital Signs
Temp Pulse Resp BP Pulse Ox
98.0 F 80 18 124/65 98
12/04/24 11:04 12/04/24 11:04 12/04/24 11:04 12/04/24 11:04 12/04/24 11:04
Intake & Output
12/02/24 12/03/24 12/04/24 12/05/24
06:59 06:59 06:59 06:59
Intake Total 1730 / 1730 480 / 480 340 / 340
Balance 1730 / 1730 480 / 480 340 / 340
Physical Exam
Physical Exam
Well-appearing, no acute distress
Regular rate and rhythm with normal S1 and S2, no S3 no S4. There is a grade 1/6 apical holosystolic murmur and no rubs. PMI is normally placed.
Lungs are clear to auscultation bilaterally without wheezes rales or rhonchi.
Abdomen soft nontender nondistended with normoactive bowel sounds
Extremities show trace pretibial edema bilaterally no clubbing or cyanosis.
Neurologic exam is grossly nonfocal.
--- NOTE | 2024-12-04 12:24 | W.PN.VS ---
Today's Communication / Plan
-
follow up as outpt post discharge
call with questions
Assessment/Plan
-
s/p agram
- oob
plan per primary
follow up as outpatient
cont antplt
Subjective Data
-
Date of Service: December 04, 2024
doing well
foot feel much improved
Objective Data
-
Vital Signs
Temp Pulse Resp BP Pulse Ox
97.9 F 80 18 124/65 98
12/04/24 12:13 12/04/24 11:04 12/04/24 11:04 12/04/24 11:04 12/04/24 11:04
Intake and Output
12/03/24 12/04/24 12/05/24
06:59 06:59 06:59
Intake Total 480 / 480 340 / 340
Balance 480 / 480 340 / 340
Intake:
Oral fluids 480 / 480 240 / 240
IV fluids (Total) 100 / 100
norm saline 100 / 100
Other:
Number of approximated MODERATE 2 3
amounts of urine
Number of approximated LARGE 5
amounts of urine
Lab Results
12/03/24 05:05
12/04/24 07:22
Calcium 9.4 mg/dl (8.4-10.2) 12/04/24 07:22
Total Bilirubin 0.7 mg/dl (0.2-1.3) 12/01/24 06:27
AST 25 U/L (14-36) 12/01/24 06:27
ALT 16 U/L (0-35) 12/01/24 06:27
Alkaline Phosphatase 104 U/L (38-126) 12/01/24 06:27
Total Protein 5.9 g/dl (6.3-8.2) L 12/01/24 06:27
Albumin 3.5 g/dl (3.5-5.0) 12/01/24 06:27
Physical Exam
-
groin intact
no hematoma
foot warm
calf soft
[2024-12-04 13:16] VITALS: BP 117/49; BP 118/48; BP 128/56; PULSE 79; PULSE 86; PULSE 91
--- NOTE | 2024-12-04 13:47 | W.DCSUMMARY ---
Discharge Summary
Discharge Data
Date of Admission: 11/30/24
Date of Discharge: 12/04/24
-
Pending Results: No
Hospital Course
Discharge diagnosis:
Hypotension
Fall from hypotension
Lumbar 2 compression fracture
Acute kidney injury
Cellulitis of right lower ankle
Peripheral artery disease with chronic right ankle wound
Chronic systolic/diastolic heart failure
Essential hypertension
Paroxysmal atrial fibrillation status post ablation with pacemaker
Coronary artery disease status post surgery
History of aortic valve replacement
Carotid artery stenosis
Right bundle branch block
Consults: Cardiology, vascular surgery, podiatry
Procedures:
12/03/2024
1.) Intravascular lithotripsy to right popliteal artery and superficial femoral artery (6 mm x 80 mm E8 shockwave balloon)
2.) Balloon angioplasty and drug-eluting stent placement to popliteal artery and superficial femoral artery (overlapping Zilver PTX stents - 6 mm x 140 mm (x2), 6 mm x 80 mm)
3.) Diagnostic right lower extremity arteriogram
4.) Ultrasound-guided percutaneous antegrade access to the right superficial femoral artery origin
Hospital course:
79-year-old female with a past medical history of CHF, atrial fibrillation, hypertension, CAD, PAD, chronic right bundle branch block, and chronic right ankle wound was admitted for hypotension as well as fall from her hypotension. Patient was
found to have a lumbar 2 compression fracture. She was treated with oxycodone, lidocaine patches, and Tylenol.
Patient is on valsartan, Lasix, and metoprolol. These medications were held. She was treated with IV fluids. Her kidney function returned to baseline. Her hypotension resolved.
Patient has a chronic right ankle wound with infection. She is on Keflex. She received IV Ancef while in the hospital. She was seen in conjunction with vascular surgery and podiatry. She underwent right lower extremity angioplasty on 12/03/2024.
She did well postoperatively. 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
Patient was seen in conjunction with PT, who recommended home PT. She was seen in conjunction with cardiology, and resumed on valsartan 40 mg twice daily, and Lasix 40 mg daily. She was also resumed on Toprol XL at a decreased dose of 25 mg twice
a day. Her blood pressure was monitored, and she did not have any recurrence of hypotension.
She is medically stable for discharge. 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
Disposition: Home with home care
Discharge planning: Required 38 minutes
Discharge Plan
-
Patient Disposition: Home with Home Care
Discharge Diagnosis/Procedures: Syncope from hypotension, acute kidney injury, lumbar vertebral compression fracture, chronic right ankle wound, peripheral artery disease, essential hypertension
Condition: Good
Diet: Low Fat and Low Cholesterol
Activity: As tolerated and No strenuous activity
Driving Restrictions: As prior to admission
Others Tests: Ultrasound appointment:01/05 @ 1pm
Activity Restrictions/Additional Instructions:
Your medications have been adjusted, please take as directed.
Do not take more than 4000 mg of Tylenol/acetaminophen in 24 hours, this includes the Tylenol in your Tylenol with codeine as well as your regular Tylenol.
Follow-up with your primary care provider in 1 week, your usual supervisor coal handling as soon as possible, cardiology in 2-3 weeks, and vascular surgery as scheduled.
Wound Care Instructions
R LATERAL ANKLE: Clean with soap and water, adaptic, gauze and shon daily and prn drainage.
Follow up with supervisor coal handling Dr. Gaona
Stand Alone Forms: Vascular Surg Discharge Instr
Referrals:
Dylan Hurst MD [Family Provider, Family Practice]
Jessica Donis MD [Active, Cardiology] - in two to three weeks
Donna Wilder CRNP [Specified Professional Personl, Vascular Surgery] - 01/07/25 9:30 am
Referral Note: Vascular office follow-up
Additional Discharge Medication Instructions: Start Plavix 75 mg p.o. daily with Eliquis 5 mg, while on Plavix stop taking aspirin*
Prescriptions:
New
lidocaine 4 % Adhesive Patch,Medicated
1 patch topical DAILY Qty: 30 0RF
clopidogrel 75 mg Tablet
75 mg PO DAILY Qty: 30 0RF
pantoprazole 40 mg Tablet,Delayed Release (Dr/Ec)
40 mg PO DAILY Qty: 30 0RF
metoprolol succinate 25 mg Tablet Extended Release 24 Hr
25 mg PO BID Qty: 60 0RF
oxycodone 5 mg Tablet
5 mg PO Q4HPRN PRN (Reason: severe pain) 30 Days Qty: 20 0RF
Senna Plus 8.6-50 mg capsule
2 tab-cap PO HS Qty: 60 0RF
Continued
atorvastatin 80 mg Tablet
80 mg PO HS
valsartan 80 mg tablet
40 mg PO BID
Calcium 600 Mg + Vitamin D 800 Mcg
1 tab PO DAILY Qty: 0 0RF
Vitamin B-12
1 tab PO DAILY
escitalopram oxalate [Lexapro] 20 mg tablet
20 mg PO BID
furosemide [Lasix] 40 mg tablet
40 mg PO DAILY
acetaminophen-codeine 300-30 mg Tablet
1 tab PO BID PRN (Reason: mild pain)
acetaminophen [Tylenol Extra Strength] 500 mg Tablet
1,000 mg PO BIDPRN PRN (Reason: mild pain)
triamcinolone acetonide 0.1 % Cream
1 applic TOPICAL BID PRN (Reason: B/L elbows psoriasis)
Eliquis 5 mg Tablet
5 mg PO BID
Jardiance 10 mg Tablet
10 mg PO DAILY
cephalexin 500 mg capsule
500 mg PO QID 7 Days Qty: 28 0RF
Discontinued
metoprolol succinate 50 mg Tablet Extended Release 24 Hr
50 mg PO BID
aspirin 81 mg tablet,delayed release (DR/EC)
81 mg PO DAILY Qty: 1 0RF
furosemide [Lasix] 20 mg Tablet
20 mg PO HS
Discharge Orders:
Discharge Patient (As Directed); Ordered 12/04/24
Ordered By: Ricco Muñiz
Discharge Date and Time
Discharge Date/Time: 12/04/24 15:14
Print Language: MAURITANIAN
[2024-12-04 14:56] VITALS: BP 105/61
--- NOTE | 2024-12-04 15:01 | CM ---
CM following re; d/c planning.
Pt set up with [facility].
Family transport home.
No additional needs.
Goal: home with [facility].
--- NOTE | 2024-12-04 15:34 | PTCARENOTE ---
IV discontinued. Discharge instructions printed and reviewed with patient and spouse who verbalized understanding. Pt transported off the floor via wheelchair with all belongings from the room.
== END 2024-12-04 15:14 | disposition home health service (06) | DRG 279 ==
LOC: 4 EAST ACU 17:15
PROVIDERS: Emergency Medicine; Nurse Practitioner; ADMITTING PHYSICIAN Hospitalist; ATTENDING PHYSICIAN Family Medicine; CONSULT PHYSICIAN Internal Medicine Cardiovascular Disease; CONSULT PHYSICIAN Student in an Organized Health Care Education/Training Program; EMERGENCY PHYSICIAN Emergency Medicine; FAMILY PHYSICIAN Family Medicine; OTHER PHYSICIAN Surgery Vascular Surgery
PROC: 047M34Z Dilation of Right Popliteal Artery with Drug-eluting Intraluminal Device, Percutaneous Approach (ICD-10-PCS; 2024-12-03)
PROC: 04FK3ZZ Fragmentation of Right Femoral Artery, Percutaneous Approach (ICD-10-PCS; 2024-12-03)
PROC: 047K34Z Dilation of Right Femoral Artery with Drug-eluting Intraluminal Device, Percutaneous Approach (ICD-10-PCS; 2024-12-03)
DX: I70.221 Atherosclerosis of native arteries of extremities with rest pain, right leg (principal); N17.9 Acute kidney failure, unspecified; F03.93 Unspecified dementia, unspecified severity, with mood disturbance; L03.90 Cellulitis, unspecified; I50.42 Chronic combined systolic (congestive) and diastolic (congestive) heart failure; F03.94 Unspecified dementia, unspecified severity, with anxiety; L03.115 Cellulitis of right lower limb; Z87.891 Personal history of nicotine dependence; E86.1 Hypovolemia; I95.1 Orthostatic hypotension; I11.0 Hypertensive heart disease with heart failure; I48.0 Paroxysmal atrial fibrillation; Z79.82 Long term (current) use of aspirin; Z79.899 Other long term (current) drug therapy; M19.90 Unspecified osteoarthritis, unspecified site; F32.A Depression, unspecified; Z79.01 Long term (current) use of anticoagulants; E78.00 Pure hypercholesterolemia, unspecified
CPT/HCPCS: 71046; 73610; 80048; 80053; 85025; 85027; 85610; 85730; 87070; 87075; 87205; 93005; 93922; 93925; 96360; 97116; 97163; 97166; 97530; 99285; C1725; C1769; C1874; C1894; Q9967

== ENCOUNTER → 2024-12-21 12:17 | Outpatient (REF) | payer MEDICARE, SELFPAY | LOC: RAD 12:17 | PROVIDERS: ATTENDING PHYSICIAN Family Medicine | DX: S32.000D Wedge compression fracture of unspecified lumbar vertebra, subsequent encounter for fracture with routine healing (principal); M54.50 Low back pain, unspecified | CPT/HCPCS: 72110 ==

== ENCOUNTER → 2025-01-05 13:06 | Outpatient (REF) | payer MEDICARE, SELFPAY | LOC: RAD 13:06 | PROVIDERS: ATTENDING PHYSICIAN Surgery Vascular Surgery; FAMILY PHYSICIAN Family Medicine | DX: I73.9 Peripheral vascular disease, unspecified (principal) | CPT/HCPCS: 93922; 93925 ==

== ENCOUNTER 2025-01-29 09:49 | Outpatient (RCR) | payer MEDICARE, SELFPAY | END 2025-01-29 23:59 | disposition home or self-care (01) | LOC: CRHB 09:49 | PROVIDERS: ATTENDING PHYSICIAN Internal Medicine Interventional Cardiology; FAMILY PHYSICIAN Chiropractor | DX: I25.10 Atherosclerotic heart disease of native coronary artery without angina pectoris (principal); Z95.2 Presence of prosthetic heart valve | CPT/HCPCS: G0422; G0423 ==

== ENCOUNTER → 2025-02-11 10:35 | Outpatient (REF) | payer MEDICARE, SELFPAY | LOC: DHVS 10:35 | PROVIDERS: ATTENDING PHYSICIAN Surgery Vascular Surgery; FAMILY PHYSICIAN Family Medicine | DX: I73.9 Peripheral vascular disease, unspecified (principal) | CPT/HCPCS: 93922 ==

== ENCOUNTER 2025-02-15 10:35 | Outpatient (RCR) | payer MEDICARE, SELFPAY | END 2025-02-15 23:59 | disposition home or self-care (01) | LOC: CRHB 10:35 | PROVIDERS: ATTENDING PHYSICIAN Internal Medicine Cardiovascular Disease | DX: Z95.2 Presence of prosthetic heart valve (principal) | CPT/HCPCS: G0422; G0423 ==

== ENCOUNTER → 2025-03-03 15:35 | Outpatient (REF) | payer MEDICARE, SELFPAY ==
[2025-03-03 16:06] LABS: Hematocrit 41.3 % (37.0-47.0); Hemoglobin 13.9 g/dL (12.0-16.0); Mean Corp Hgb Conc. 33.7 g/dL (33.0-37.0); Mean Corpuscular Volume 100.2 fL (81.0-99.0); Nucleated Red Blood Cells % 0 %; Platelet Count 199 10^3/uL (130-400); Red Cell Dist. Width 14.3 % (11.5-14.5)
[2025-03-03 18:52] LABS: Blood Urea Nitrogen 25 mg/dl (7-17); Calcium 9.7 mg/dl (8.4-10.2); Carbon Dioxide 28 mmol/L (22-30); Chloride 103 mmol/L (98-107); Glucose 120 mg/dl (70-99); Potassium 4.4 mmol/L (3.5-5.1); Sodium 139 mmol/L (135-145); eGFR 57.31
== END ==
LOC: REG 15:35
PROVIDERS: ATTENDING PHYSICIAN Internal Medicine Interventional Cardiology; FAMILY PHYSICIAN Family Medicine; OTHER PHYSICIAN Surgery Vascular Surgery
DX: I10 Essential (primary) hypertension (principal); I48.92 Unspecified atrial flutter; R58 Hemorrhage, not elsewhere classified
CPT/HCPCS: 36415; 80048; 85025

== ENCOUNTER → 2025-03-19 14:53 | Outpatient (REF) | payer MEDICARE, SELFPAY | LOC: RAD 14:53 | PROVIDERS: ATTENDING PHYSICIAN Family Medicine | DX: M54.50 Low back pain, unspecified (principal) | CPT/HCPCS: 72110 ==